=== PATIENT | male | born 1935 | race Asian ===

== ENCOUNTER 2020-09-16 03:04 | Inpatient (IN) | payer MEDICARE, MEDICAID ==
[~2020-09-16] VITALS: Ht 167.6 cm; Wt 52.2 kg
[2020-09-16] VITALS (7 sets, daily range): BP systolic 131–160; BP diastolic 67–84
--- NOTE | 2020-09-16 03:35 | Emergency Room Report ---
History of Present Illness General Chief Complaint: Generalized Weakness Source: Medical Record Present Illness HPI 85-year-old male with history of dementia and atrial fibrillation here with some slight generalized weakness. According the [facility] the patient has been complaining of generalized weakness over the past 24 hours. When paramedics arrived the patient had a heart rate of around 85 but would intermittently go up to around 120 bpm irregularly irregular. Patient was in no acute distress. Patient is on 2 L nasal cannula chronically. Patient has no complaints at this time. Denies headaches, vision changes, fevers, chills, chest pain, palpitati ons, shortness of breath, back pain, abdominal pain, nausea, vomiting, diarrhea, dysuria, palpitations, diaphoresis. There are some small abrasions on the patient's head and he does not know how these occurred but he denies any falls or syncopal events. Allergies: Coded Allergies: No Known Allergies (Unverified , 09/16/20) COVID-19 Screening Contact w/high risk pt: No Experienced COVID-19 symptoms?: No COVID-19 Testing performed SUPERVISOR GROWER: No Nursing Documentation-[facility] Past Medical History: No History, Except For Hx Hypertension: Yes Review of Systems All Other Systems: negative except mentioned in HPI Physical Exam Vital Signs Date Time Temp Pulse Resp B/P (MAP) Pulse Ox O2 Delivery O2 Flow Rate FiO2 09/16/20 03:04 97.3 93 20 160/82 (108) 96 Nasal Cannula 4.0 Sp02 EP Interpretation: reviewed, normal General Appearance: no apparent distress, alert, non-toxic Head: normocephalic, atraumatic Eyes: bilateral eye normal inspection, bilateral eye PERRL ENT: hearing grossly normal, normal pharynx, no angioedema, normal voice Neck: full range of motion, supple/symm/no masses Respiratory: chest non-tender, lungs clear, normal breath sounds, speaking full sentences Cardiovascular #1: no edema, other - Irregularly irregular rhythm around 85 bpm Cardiovascular #2: 2+ carotid (R), 2+ carotid (L), 2+ radial (R), 2+ radial (L), 2+ dorsalis pedis (R), 2+ dorsalis pedis (L) Gastrointestinal: normal bowel sounds, non tender, soft, non-distended, no guarding, no rebound Rectal: deferred Genitourinary: normal inspection, no CVA tenderness Musculoskeletal: back normal, normal range of motion, gait/station normal, non- tender Neurologic: alert, motor strength/tone normal, oriented x3, sensory intact, responsive, speech normal Psychiatric: judgement/insight normal, memory normal, mood/affect normal, no suicidal/homicidal ideation Lymphatic: no adenopathy Medical Decision Making Diagnostic Impression: Primary Impression: CHF (congestive heart failure) Additional Impressions: Elevated troponin Shortness of breath Weakness ER Course EKG: NSR, T wave inversions in V3. No ST abnormalities., intervals WNL. No ectopy. Rate 80 bpm Rhythm strip: patient monitored for arrhythmias - no malignant dysrhythmias, runs of PVCs, nor pauses noted Chest x-ray: Indication shortness of breath: Cardiomegaly with mild to moderate vascular congestion and moderate left pleural effusion Laboratory Tests Test 09/16/20 03:33 White Blood Count 5.7 K/UL (4.8-10.8) Red Blood Count 3.27 M/UL (4.70-6.10) L Hemoglobin 11.9 G/DL (14.2-18.0) L Hematocrit 36.2 % (42.0-52.0) L Mean Corpuscular Volume 111 FL (80-99) H Mean Corpuscular Hemoglobin 36.3 PG (27.0-31.0) H Mean Corpuscular Hemoglobin Concent 32.8 G/DL (32.0-36.0) Red Cell Distribution Width 13.1 % (11.6-14.8) Platelet Count 162 K/UL (150-450) Mean Platelet Volume 8.2 FL (6.5-10.1) Neutrophils (%) (Auto) % (45.0-75.0) Lymphocytes (%) (Auto) % (20.0-45.0) Monocytes (%) (Auto) % (1.0-10.0) Eosinophils (%) (Auto) % (0.0-3.0) Basophils (%) (Auto) % (0.0-2.0) Sodium Level 140 MMOL/L (136-145) Potassium Level 3.7 MMOL/L (3.5-5.1) Chloride Level 107 MMOL/L (98-107) Carbon Dioxide Level 25 MMOL/L (21-32) Anion Gap 8 mmol/L (5-15) Blood Urea Nitrogen 21 mg/dL (7-18) H Creatinine 1.0 MG/DL (0.55-1.30) Estimated Glomerular Filtration Rate > 60 mL/min (>60) Glucose Level 116 MG/DL (74-106) H Calcium Level 8.4 MG/DL (8.5-10.1) L Total Bilirubin 0.7 MG/DL (0.2-1.0) Aspartate Amino Transferase (AST) 19 U/L (15-37) Alanine Aminotransferase (ALT) 23 U/L (12-78) Alkaline Phosphatase 18 U/L (46-116) L Troponin I 0.070 ng/mL (0.000-0.056) Pro-B-Type Natriuretic Peptide 07361 pg/mL (0-125) H Total Protein 6.0 G/DL (6.4-8.2) L Albumin 2.7 G/DL (3.4-5.0) L Globulin 3.3 g/dL Albumin/Globulin Ratio 0.8 (1.0-2.7) L Microbiology Date/Time Source Procedure Growth Status 09/16/20 03:33 Nasopharynx SARS-CoV-2 RdRp Gene Assay - Final Complete 85-year-old male here with generalized weakness and some shortness of breath. Patient was reportedly mildly tachypneic at the [facility] on 2 L nasal cannula and his nasal cannula was increased to 4 L. Patient has had normal oxygen saturation and otherwise normal vital signs in the emergency department. Blood pressure and heart rate have been normal. He has been in atrial fibrillation with a normal heart rate throughout his stay in the emergency department. In no acute distress whatsoever. Chest x-ray showed pulmonary vascular congestion consistent with CHF. BNP was elevated at greater than 15,000. Patient was given 40 mg of Lasix IV. Troponin was 0.07. EKG showed T wave inversions in V3 but otherwise unremarkable. Patient received aspirin. CT head was unremarkable. CBC and CMP otherwise largely normal. The patient was admitted to telemetry. Last Vital Signs Date Time Temp Pulse Resp B/P (MAP) Pulse Ox O2 Delivery O2 Flow Rate FiO2 09/16/20 03:04 97.3 93 20 160/82 (108) 96 Nasal Cannula 4.0 Devonte Fang M.D. Sep 16, 2020 03:35
[2020-09-16 03:40] LABS: HEMATOCRIT 36.2 % (42.0-52.0); HEMOGLOBIN 11.9 G/DL (14.2-18.0); MEAN CORPUSCULAR VOLUME 111 FL (80-99); PLATELET COUNT 162 K/UL (150-450); RED BLOOD COUNT 3.27 M/UL (4.70-6.10); RED CELL DISTRIBUTION WIDTH 13.1 % (11.6-14.8); WHITE BLOOD COUNT 5.7 K/UL (4.8-10.8)
[2020-09-16 03:51] LABS: ANION GAP 8 mmol/L (5-15); BLOOD UREA NITROGEN 21 mg/dL (7-18); CALCIUM 8.4 MG/DL (8.5-10.1); CARBON DIOXIDE 25 MMOL/L (21-32); CHLORIDE 107 MMOL/L (98-107); POTASSIUM 3.7 MMOL/L (3.5-5.1); SODIUM 140 MMOL/L (136-145)
--- NOTE | 2020-09-16 03:54 | Diagnostic Imaging Report ---
EXAM: XR Chest, 1 View CLINICAL HISTORY: SOB TECHNIQUE: Frontal view of the chest. COMPARISON: No relevant prior studies available. FINDINGS: Lungs: Increased interstitial opacities. Pleural space: Moderate left pleural effusion. Heart: Moderate cardiomegaly. Bones/joints: No acute findings. IMPRESSION: Cardiomegaly with mild to moderate vascular congestion and moderate left pleural effusion.
[2020-09-16] MEDS ORDERED: Aspirin Baby 81mg ORAL ONE (04:00)
[2020-09-16 04:04] LABS: ALANINE AMINOTRANSFERASE 23 U/L (12-78); ALBUMIN 2.7 G/DL (3.4-5.0); ALBUMIN/GLOBULIN RATIO 0.8 (1.0-2.7); ALKALINE PHOSPHATASE 18 U/L (46-116); ASPARTATE AMINO TRANSFERASE 19 U/L (15-37); BILIRUBIN,TOTAL 0.7 MG/DL (0.2-1.0)
--- NOTE | 2020-09-16 04:14 | Diagnostic Imaging Report ---
EXAM: CT Head Without Intravenous Contrast CLINICAL HISTORY: AMS TECHNIQUE: Axial computed tomography images of the head/brain without intravenous contrast. CTDI is 53.40 mGy and DLP is 1018.80 mGy-cm. One or more of the following dose reduction techniques were used: automated exposure control, adjustment of the mA and/or kV according to patient size, use of iterative reconstruction technique. COMPARISON: No prior CTs are available for comparison. FINDINGS/ IMPRESSION: Few scattered foci of punctate peripheral hyperdensity for example along the high left parietal region, image 27 series 3, possibly reflective of microhemorrhage, which can be seen in the setting of hypertension and/or amyloidosis. Correlation with brain MRI is recommended. Also, there is a rounded hyperdense focus along the right cerebellum measuring 0.3 cm, image 10 series 3. This may reflect a small focal microhemorrhage as well. Correlation with brain MRI is recommended. There is no mass-effect, midline shift, or hydrocephalus. Prominence of the ventricles and sulci compatible with age-related involutional change. There is moderate to severe cerebral and cerebellar volume loss. Scattered punctate foci of lucency along the white matter and along the basal ganglia likely reflective of chronic microvascular ischemic change and/or lacunar infarcts. The possibility of acute superimposed ischemia cannot be excluded. Correlation with brain MRI is recommended to exclude the possibility of acute ischemia. Vascular calcifications are noted. There is no calvarial fracture. Artifact from dentures are noted. Mastoid air cells are clear. Visualized paranasal sinuses are clear. Patient is status post left cataract surgery.
[2020-09-16] MEDS ORDERED: LOSARTAN POTASS50 MG ORAL (05:00)
[2020-09-16] MEDS ORDERED: DONEPEZIL HCL5 M2 ORAL (05:00)
[2020-09-16] MEDS ORDERED: NAMENDA10 MG ORAL (05:00)
[2020-09-16] MEDS ORDERED: COLACE100 MG ORAL (05:00)
[2020-09-16] MEDS: Docusate 100mg cap ORAL SCH (10:39)
[2020-09-16] MEDS: Metoprolol Tartrate 12.5mg TAB ORAL SCH ×2 (10:40→21:09)
[2020-09-16] MEDS: Losartan 50mg tab ORAL SCH (10:40)
[2020-09-16] MEDS: Heparin 5000 units/ml inj SUBQ SCH ×2 (10:41→21:00)
[2020-09-16] MEDS: Donepezil 5mg Tab ORAL SCH (10:41)
--- NOTE | 2020-09-16 13:00 | History and Physical Report ---
DATE OF ADMISSION: 09/16/2020 CHIEF COMPLAINT: CHF exacerbation, atrial fibrillation with RVR. HISTORY OF PRESENT ILLNESS: The patient is an 85-year-old male. He has a history of hypertensive heart disease, dementia, cardiac arrhythmia, hypertension, gait instability presented from a long term facility with complaints of shortness of breath. On evaluation in the emergency room, the patient had x-ray evidence of congestive heart failure. He had an elevated natriuretic peptide assay as well as elevated troponin. He was given a dose of aspirin and intravenous Lasix, is now admitted for further evaluation and care. PAST MEDICAL HISTORY: As above. PAST SURGICAL HISTORY: None. CURRENT MEDICATIONS: Reconciled and reviewed. ALLERGIES: None. FAMILY HISTORY: None. SOCIAL HISTORY: There is no known history of tobacco, ethanol, or drugs. REVIEW OF SYSTEMS: Unobtainable as patient is confused. PHYSICAL EXAMINATION: VITAL SIGNS: Temperature 98.1, pulse 112, respirations 18, and blood pressure 130/85. GENERAL: The patient is well-developed, no apparent distress. Thin male. HEENT: Head is normocephalic and atraumatic. Sclerae anicteric. Oropharynx clear. NECK: Supple. HEART: LUNGS: Clear. ABDOMEN: Soft, nontender, nondistended. EXTREMITIES: Without clubbing or cyanosis. There is trace pitting edema noted. LABORATORY DATA: Sodium 140, potassium 3.7, BUN 21, creatinine is 1. Troponin 0.07. Natriuretic peptide level was 14,000. Chest x-ray showed CHF. ASSESSMENT: This is an 85-year-old male with history of hypertension and dementia admitted with complaints of shortness of breath secondary to CHF exacerbation. 1. CHF exacerbation. 2. Elevated troponin, rule out acute coronary syndrome. 3. Atrial fibrillation and atrial flutter. 4. Dementia. PLAN: 1. IV diuretics. 2. Monitor chest x-ray. 3. Supplemental oxygen as needed. 4. Antiplatelet treatment with aspirin. 5. Beta blockade for rate control. 6. Repeat troponin in the morning. 7. We will check a 2D echo. 8. Cardiology consultation is pending. Donnell Pedersen M.D. DR: Ander JOB#: [id number] CC:
[2020-09-17] VITALS: BP 138/54
[2020-09-17] MEDS: Acetaminophen 500mg (ES) tab ORAL PRN (03:07)
[2020-09-17 04:00] VITALS: BP 134/60
[2020-09-17 08:00] VITALS: BP 130/77
[2020-09-17] MEDS: Docusate 100mg cap ORAL SCH (08:20)
[2020-09-17] MEDS: Losartan 50mg tab ORAL SCH (08:20)
[2020-09-17] MEDS: Memantine 10mg tab ORAL SCH (08:20)
[2020-09-17] MEDS: Donepezil 5mg Tab ORAL SCH (08:20)
[2020-09-17] MEDS: Metoprolol Tartrate 12.5mg TAB ORAL SCH ×2 (08:20→21:10)
[2020-09-17] MEDS: Aspirin EC 81mg tab ORAL SCH (08:21)
[2020-09-17] MEDS: Heparin 5000 units/ml inj SUBQ SCH ×2 (08:26→21:11)
[2020-09-17 09:02] LABS: ALANINE AMINOTRANSFERASE 17 U/L (12-78); ALBUMIN 2.8 G/DL (3.4-5.0); ALBUMIN/GLOBULIN RATIO 0.8 (1.0-2.7); ALKALINE PHOSPHATASE 16 U/L (46-116); ANION GAP 9 mmol/L (5-15); ASPARTATE AMINO TRANSFERASE 18 U/L (15-37); BILIRUBIN,TOTAL 1.3 MG/DL (0.2-1.0); BLOOD UREA NITROGEN 21 mg/dL (7-18); CALCIUM 8.3 MG/DL (8.5-10.1); CARBON DIOXIDE 26 MMOL/L (21-32); CHLORIDE 105 MMOL/L (98-107); POTASSIUM 3.3 MMOL/L (3.5-5.1); SODIUM 140 MMOL/L (136-145)
[2020-09-17 09:03] LABS: BILIRUBIN,DIRECT 0.3 MG/DL (0.0-0.3)
--- NOTE | 2020-09-17 11:06 | General Progress Note ---
Subjective ROS Limited/Unobtainable: No Constitutional: Reports: malaise, weakness HEENT: Reports: no symptoms Respiratory: Reports: shortness of breath Gastrointestinal/Abdominal: Reports: no symptoms Genitourinary: Reports: no symptoms Neurologic/Psychiatric: Reports: no symptoms Endocrine: Reports: no symptoms Hematologic/Lymphatic: Reports: no symptoms Allergies: Coded Allergies: No Known Allergies (Unverified , 09/16/20) All Systems: reviewed and negative except above Subjective no events. less sob. on 1 L NC. no fever or chills. labs noted. low k Objective Last 24 Hour Vital Signs Date Time Temp Pulse Resp B/P (MAP) Pulse Ox O2 Delivery O2 Flow Rate FiO2 09/17/20 09:00 Nasal Cannula 1.0 09/17/20 08:20 60 130/77 09/17/20 08:20 130/77 09/17/20 08:00 97.5 60 20 130/77 (94) 97 09/17/20 08:00 115 09/17/20 04:00 67 09/17/20 04:00 97.1 70 20 134/60 (84) 95 09/17/20 00:00 70 09/17/20 00:00 97.9 65 18 138/54 (82) 95 09/16/20 21:09 98 139/70 09/16/20 21:00 Nasal Cannula 4.0 09/16/20 20:01 98 Nasal Cannula 2.0 28 09/16/20 20:00 96.6 96 18 139/70 (93) 96 09/16/20 20:00 86 09/16/20 16:00 95 09/16/20 15:59 98.1 81 20 132/71 (91) 100 09/16/20 12:00 112 09/16/20 11:53 96.1 132 19 148/72 (97) 98 Intake and Output 09/16/20 09/17/20 19:00 07:00 # Bowel Movements 1 Laboratory Tests 09/17/20 06:40: Sodium Level 140, Potassium Level 3.3L, Chloride Level 105, Carbon Dioxide Level 26, Anion Gap 9, Blood Urea Nitrogen 21H, Creatinine 1.0, Estimat Glomerular Filtration Rate > 60, Glucose Level 100, Calcium Level 8.3L, Total Bilirubin 1.3H, Direct Bilirubin 0.3, Aspartate Amino Transf (AST/SGOT) 18, Alanine Aminotransferase (ALT/SGPT) 17, Alkaline Phosphatase 16L, Total Protein 6.4, Albumin 2.8L, Globulin 3.6, Albumin/Globulin Ratio 0.8L Height (Feet): 5 Height (Inches): 6.00 Weight (Pounds): 145 General Appearance: WD/WN, alert Neck: supple Cardiovascular: normal rate Respiratory/Chest: lungs clear, normal breath sounds, no respiratory distress, no accessory muscle use Abdomen: normal bowel sounds, non tender, soft, no organomegaly Edema: no edema noted Arm (L), no edema noted Arm (R), no edema noted Leg (L), no edema noted Leg (R) 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 normal, no motor/sensory deficits, alert, oriented x 3 Assessment/Plan Problem List: (1) NSTEMI (non-ST elevated myocardial infarction) ICD Codes: I21.4 - Non-ST elevation (NSTEMI) myocardial infarction SNOMED: 61013236 (2) Shortness of breath ICD Codes: R06.02 - Shortness of breath SNOMED: 485731049 (3) Elevated troponin ICD Codes: R77.8 - Other specified abnormalities of plasma proteins SNOMED: 939367729, 570274057, 930191644 (4) CHF (congestive heart failure) ICD Codes: I50.9 - Heart failure, unspecified SNOMED: 26957071 (5) Weakness ICD Codes: R53.1 - Weakness SNOMED: 47778371, 723032288, 920525701 Status: stable Assessment/Plan: iv lasix wean o2 antiplt rx follow up echo repeat cxr monitor Donnell Cast MD Sep 17, 2020 11:05
[2020-09-17 12:00] VITALS: BP 149/61
--- NOTE | 2020-09-17 13:55 | Cardiology Progress Note ---
Subjective DATE OF SERVICE: Sep 17, 2020 Less SOB. Monitor: Afib to NSR, and now back to AFib/flutter. Labs noted. Remains confused but directable. Objective Last 24 Hour Vital Signs Date Time Temp Pulse Resp B/P (MAP) Pulse Ox O2 Delivery O2 Flow Rate FiO2 09/17/20 09:00 Nasal Cannula 1.0 09/17/20 08:20 60 130/77 09/17/20 08:20 130/77 09/17/20 08:00 97.5 60 20 130/77 (94) 97 09/17/20 08:00 115 09/17/20 04:00 67 09/17/20 04:00 97.1 70 20 134/60 (84) 95 09/17/20 00:00 70 09/17/20 00:00 97.9 65 18 138/54 (82) 95 09/16/20 21:09 98 139/70 09/16/20 21:00 Nasal Cannula 4.0 09/16/20 20:01 98 Nasal Cannula 2.0 28 09/16/20 20:00 96.6 96 18 139/70 (93) 96 09/16/20 20:00 86 09/16/20 16:00 95 09/16/20 15:59 98.1 81 20 132/71 (91) 100 ROS: still not obtainable due to dementia HEENT: normal ENT inspection RHYTHM: Afib LUNGS: rales bilaterally - few CARDIAC: normal rate, normal S1 and S2, irregularly irregular, systolic murmur - 1/6 systolic at apex ABDOMEN: normal bowel sounds, non tender, soft, no organomegaly EXTREMITIES: normal range of motion, trace edema Laboratory Tests Test 09/17/20 06:40 Sodium Level 140 MMOL/L (136-145) Potassium Level 3.3 MMOL/L (3.5-5.1) L Chloride Level 105 MMOL/L (98-107) Carbon Dioxide Level 26 MMOL/L (21-32) Anion Gap 9 mmol/L (5-15) Blood Urea Nitrogen 21 mg/dL (7-18) H Creatinine 1.0 MG/DL (0.55-1.30) Estimat Glomerular Filtration Rate > 60 mL/min (>60) Glucose Level 100 MG/DL (74-106) Calcium Level 8.3 MG/DL (8.5-10.1) L Total Bilirubin 1.3 MG/DL (0.2-1.0) H Direct Bilirubin 0.3 MG/DL (0.0-0.3) Aspartate Amino Transf (AST/SGOT) 18 U/L (15-37) Alanine Aminotransferase (ALT/SGPT) 17 U/L (12-78) Alkaline Phosphatase 16 U/L (46-116) L Total Protein 6.4 G/DL (6.4-8.2) Albumin 2.8 G/DL (3.4-5.0) L Globulin 3.6 g/dL Albumin/Globulin Ratio 0.8 (1.0-2.7) L Microbiology Date/Time Source Procedure Growth Status 09/16/20 06:00 Rectal Mucosa Received 09/16/20 06:00 Nasal Nares MRSA Culture - Final NO METHICILLIN RESISTANT STAPH AUREUS... Complete 09/16/20 03:33 Nasopharynx SARS-CoV-2 RdRp Gene Assay - Final Complete CHEST XRAY: (09/17) pulmonary venous congestion Assessment/Plan Assessment/Plan Paroxysmal Atrial Fib/flutter Acute/chr systolic CHF Acute myocardial ischemia/possible NSTEMI Hypokalemia Cerebrovascular disease with multi-infarct dementia Abnormal Head CT with microhemorrhages Add amiodarone to maintain sinus rhythm High risk for bleeding complications; no plan for full anticoagulation Titrate anti-failure and antiHTN regimens. Replace potassium; check magnesium. Maintain anti-platelet drugs Diuresis Rey Katz MD Sep 17, 2020 13:55
[2020-09-17] MEDS: Amiodarone 200mg tab ORAL SCH ×2 (14:27→21:10)
--- NOTE | 2020-09-17 15:13 | Cardiology Report ---
APPROVED REPORT EXAM: Two-dimensional and M-mode echocardiogram with Doppler and color Doppler. INDICATION Abnormal cardiac function M-Mode DIMENSIONS IVSd0.8 (0.7-1.1cm)Left Atrium (MM)3.3 (1.6-4.0cm) LVDd4.8 (3.5-5.6cm)Aortic Root3.5 (2.0-3.7cm) PWd0.9 (0.7-1.1cm)Aortic Cusp Exc.1.6 (1.5-2.0cm) IVSs1.1 cmEPSS1.3 (>1.0cm) LVDs3.6 (2.5-4.0cm) PWs1.1 cm <Conclusion> Global left ventricular hypokinesis. Normal left ventricular chamber size. Left ventricular ejection fraction estimated to be 20-25 %. No evidence of left ventricular hypertrophy. Large pleural effusion. Small pericardial effusion. Mild left atrial enlargement by 2-D. Right cardiac chamber sizes are within normal limits. Mild focal aortic valve sclerosis with adequate cusp excursion. Mildly thickened mitral valve leaflets with normal excursion. Mild mitral annulus and aortic root calcification. Pulmonic valve not well visualized. Normal tricuspid valve structure. IVC dilated at 2.3 cm without physiological collapse, suggestive of increased RA pressure. A color flow and spectral Doppler study was performed and revealed: Moderate aortic regurgitation. Moderate to severe mitral regurgitation. Left ventricular diastolic function could not be determined due to arrhythmia. Mild tricuspid regurgitation. Tricuspid systolic velocities suggests peak right ventricular systolic pressure of 48 mmHg, consistent with moderate pulmonary hypertension. Severe pulmonic regurgitation present. Respiratory variation across Mitral valve is < 25%. Respiratory variation across Tricuspid valve is < 50%.
--- NOTE | 2020-09-17 15:29 | Consultation ---
DATE OF CONSULTATION: 09/16/2020 CARDIOLOGY CONSULTATION CONSULTING PHYSICIAN: Rey Katz MD REFERRING PHYSICIAN: Donnell Pedersen MD REASON FOR CONSULTATION: Congestive heart failure, elevated troponin level, rapid atrial fibrillation. HISTORY OF PRESENT ILLNESS: This is an 85-year-old male and has a significant prior cardiac history including cardiac arrhythmias and cerebrovascular disease. He was short of breath and sent to the hospital from his [place] [facility] facility. On arrival to the emergency room, he was noted to have clinical signs of congestive heart failure as well as an elevated natriuretic peptide assay. His EKG revealed a rapid atrial fibrillation/flutter with nonspecific ST changes. The patient is being admitted to the hospital for further management and cardiovascular consultation has been requested. PAST MEDICAL HISTORY: Hypertension, cerebrovascular disease, dementia, paroxysmal atrial arrhythmias, osteoarthritis, degenerative disk disease. ALLERGIES: None. MEDICATIONS: Reviewed and reconciled. FAMILY HISTORY: Not known. SOCIAL HISTORY: Negative for smoking, alcohol, or substance abuse. REVIEW OF SYSTEMS: Not reliably obtained from patient, but 20 minutes time spent reviewing old records and [facility] chart. PHYSICAL EXAMINATION: VITAL SIGNS: Afebrile, blood pressure 130/85, heart rate 112, respirations 18. GENERAL: Thin, frail, in no acute distress. HEENT: Temporal wasting. Pale conjunctivae. Moist mucous membranes. NECK: Supple. Jugular venous pressure elevated. LUNGS: Bilateral breath sounds and few rales. CARDIAC: Irregularly irregular rhythm. Rapid rate. Normal S1, S2. A 1/6 systolic murmur at apex. ABDOMEN: Soft, nontender. EXTREMITIES: Trace edema. LABORATORY AND DIAGNOSTIC DATA: Natriuretic peptide over 14,000. Chest x-ray reveals bilateral pulmonary venous congestion. Troponin is 0.070. Sodium 140, potassium 3.7, BUN 21, creatinine 1. Lactic acid normal. IMPRESSION: 1. Acute on chronic systolic congestive heart failure. 2. Acute myocardial ischemia. 3. Possible [id number] myocardial infarction. 4. Paroxysmal atrial fibrillation/flutter with rapid ventricular rate. 5. Cerebrovascular disease with dementia. PLAN: 1. Cardiac monitoring. 2. Intravenous diuretic therapy. 3. Titrate anti-failure and antiarrhythmic regimen with beta blockers. 4. Antiplatelet therapy with aspirin. 5. Echocardiogram. 6. Reassess for cardioembolic prophylaxis with full anticoagulation. Based on his age and comorbidities, he likely would have an increased risk to benefit ratio for this type of treatment. Rey Katz M.D. DR: STACI JOB#: [id number] CC: SOUMYA
--- NOTE | 2020-09-17 15:53 | Cardiology Report ---
APPROVED REPORT EKG Measurement Heart [id number] <Conclusion> Atrial flutter with variable AV block Left anterior fascicular block Abnormal QRS-T angle, consider primary T wave abnormality Abnormal ECG
--- NOTE | 2020-09-17 15:58 | Cardiology Report ---
APPROVED REPORT EKG Measurement Heart [id number] <Conclusion> Sinus rhythm with premature atrial complexes Nonspecific ST and T wave abnormality Abnormal ECG
[2020-09-17 16:00] VITALS: BP 144/61
--- NOTE | 2020-09-17 16:57 | Consultation ---
History of Present Illness General Date patient seen: Sep 17, 2020 Reason for Hospitalization: Generalized Weakness Present Illness HPI 85 year old male with multiple medical comorbidities currently admitted to [facility] for medical care and management when he was noted to have elevated t bili, malnutrition, and sacral dermal breakdown. surgery called to evaluate and assist with care. patient seen, chart reviewed, patient examined. he is awake, alert, but not does not participate in exam. no n/v/f/c. Allergies: Coded Allergies: No Known Allergies (Unverified , 09/16/20) COVID-19 Screening Contact w/high risk pt: No Experienced COVID-19 symptoms?: Yes Coronavirus symptoms experienc: Shortness of Breath Medication History Scheduled Docusate Sodium* (Colace*), 100 MG ORAL DAILY, (Reported) Donepezil Hcl* (Donepezil Hcl*), 5 MG ORAL DAILY, (Reported) Losartan Potassium* (Losartan Potassium*), 100 MG ORAL DAILY, (Reported) Memantine Hcl* (Namenda*), 10 MG ORAL DAILY, (Reported) Patient History Limited by: age, medical condition History Provided By: Patient, Medical Record, PMD Healthcare decision maker Resuscitation status Advanced Directive on File Past Medical/Surgical History Past Medical/Surgical History: (1) Abnormal LFTs (2) Malnutrition (3) Incontinence associated dermatitis (4) Shortness of breath (5) CHF (congestive heart failure) (6) Weakness (7) Elevated troponin (8) NSTEMI (non-ST elevated myocardial infarction) Review of Systems Review of Symptoms General ROS: no weight loss or fever Psychological ROS: no depression or mood changes, no memory loss Ophthalmic ROS: no visual changes or eye irritation ENT ROS: no nasal congestion, hearing loss, dizziness Allergy and Immunology ROS: no allergic symptoms or urticaria Hematological and Lymphatic ROS: no swollen glands, unusual bleeding or bruising Endocrine ROS: no polyuria, polydipsia, weight changes, temperature intolerance Respiratory ROS: no cough, shortness of breath, or wheezing Cardiovascular ROS: no chest pain or dyspnea on exertion Gastrointestinal ROS: denies abdominal pain, bright red blood in stool. Musculoskeletal ROS: no myalgias or arthralgias Neurological ROS: no TIA or stroke symptoms Dermatological ROS: no new or changing skin lesions, rashes or pruritis Physical Exam Physical Exam General appearance: alert, cooperative, no distress, appears stated age Head: Normocephalic, without obvious abnormality, atraumatic Eyes: conjunctivae/corneas clear. PERRL, EOM's intact. Fundi benign Throat: Lips, mucosa, and tongue normal. Teeth and gums normal Neck: supple, symmetrical, trachea midline, no adenopathy, thyroid: not enlarged, symmetric, no tenderness/mass/nodules, no carotid bruit and no JVD Lungs: clear to auscultation bilaterally Heart: regular rate and rhythm, S1, S2 normal, no murmur, click, rub or gallop Abdomen: soft, non-tender. Bowel sounds normal. No masses, no organomegaly Extremities: extremities normal, atraumatic, no cyanosis or edema Pulses: 2+ and symmetric Skin: Skin color, texture, turgor normal. No rashes or lesions Neurologic: Grossly normal Last 24 Hour Vital Signs Date Time Temp Pulse Resp B/P (MAP) Pulse Ox O2 Delivery O2 Flow Rate FiO2 09/17/20 16:00 99 09/17/20 16:00 98.7 70 17 144/61 (88) 96 09/17/20 12:00 108 09/17/20 12:00 98.1 60 18 149/61 (90) 98 09/17/20 09:00 Nasal Cannula 1.0 09/17/20 08:20 60 130/77 09/17/20 08:20 130/77 09/17/20 08:00 97.5 60 20 130/77 (94) 97 09/17/20 08:00 115 09/17/20 04:00 67 09/17/20 04:00 97.1 70 20 134/60 (84) 95 09/17/20 00:00 70 09/17/20 00:00 97.9 65 18 138/54 (82) 95 09/16/20 21:09 98 139/70 09/16/20 21:00 Nasal Cannula 4.0 09/16/20 20:01 98 Nasal Cannula 2.0 28 09/16/20 20:00 96.6 96 18 139/70 (93) 96 09/16/20 20:00 86 Intake and Output 09/16/20 09/17/20 19:00 07:00 # Bowel Movements 1 Laboratory Tests Test 09/17/20 06:40 09/17/20 13:55 Sodium Level 140 MMOL/L (136-145) Potassium Level 3.3 MMOL/L (3.5-5.1) L Chloride Level 105 MMOL/L (98-107) Carbon Dioxide Level 26 MMOL/L (21-32) Anion Gap 9 mmol/L (5-15) Blood Urea Nitrogen 21 mg/dL (7-18) H Creatinine 1.0 MG/DL (0.55-1.30) Estimat Glomerular Filtration Rate > 60 mL/min (>60) Glucose Level 100 MG/DL (74-106) Calcium Level 8.3 MG/DL (8.5-10.1) L Total Bilirubin 1.3 MG/DL (0.2-1.0) H Direct Bilirubin 0.3 MG/DL (0.0-0.3) Aspartate Amino Transf (AST/SGOT) 18 U/L (15-37) Alanine Aminotransferase (ALT/SGPT) 17 U/L (12-78) Alkaline Phosphatase 16 U/L (46-116) L Total Protein 6.4 G/DL (6.4-8.2) Albumin 2.8 G/DL (3.4-5.0) L Globulin 3.6 g/dL Albumin/Globulin Ratio 0.8 (1.0-2.7) L Troponin I 0.059 ng/mL (0.000-0.056) Height (Feet): 5 Height (Inches): 6.00 Weight (Pounds): 145 Medications Current Medications Medications (Trade) Dose Ordered Sig/Lucille Route PRN Reason Start Time Stop Time Status Last Admin Dose Admin Acetaminophen (Tylenol) 500 mg Q4H PRN ORAL Mild Pain (Pain Scale 1-3) 09/16/20 09:15 10/16/20 09:14 09/17/20 03:07 Amiodarone HCl (Cordarone) 200 mg EVERY 12 HOURS ORAL 09/17/20 14:00 12/16/20 13:59 09/17/20 14:27 Aspirin (Ecotrin) 81 mg DAILY ORAL 09/17/20 09:00 11/01/20 08:59 09/17/20 08:21 Docusate Sodium (Colace) 100 mg DAILY ORAL 09/16/20 10:00 10/16/20 09:59 09/17/20 08:20 Donepezil HCl (Aricept) 5 mg DAILY ORAL 09/16/20 10:00 10/16/20 09:59 09/17/20 08:20 Furosemide (Lasix) 40 mg DAILY IV 09/16/20 10:00 10/16/20 09:59 09/17/20 08:21 Heparin Sodium (Porcine) (Heparin 5000 units/ml) 5,000 units EVERY 12 HOURS SUBQ 09/16/20 10:00 10/31/20 09:59 09/16/20 10:41 Losartan Potassium (Cozaar) 100 mg DAILY ORAL 09/16/20 10:00 10/16/20 09:59 09/17/20 08:20 Memantine (Namenda) 10 mg DAILY ORAL 09/17/20 09:00 10/17/20 08:59 09/17/20 08:20 Metoprolol Tartrate (Lopressor) 12.5 mg Q12HR ORAL 09/16/20 10:00 12/15/20 09:59 09/17/20 08:20 Temazepam (Restoril) 15 mg HSPRN PRN ORAL Insomnia 09/17/20 08:15 09/24/20 08:14 Assessment/Plan Problem List: (1) Shortness of breath ICD Codes: R06.02 - Shortness of breath SNOMED: 356801581 (2) CHF (congestive heart failure) ICD Codes: I50.9 - Heart failure, unspecified SNOMED: 29066839 (3) Weakness ICD Codes: R53.1 - Weakness SNOMED: 67251941, 989286160, 042287926 (4) Elevated troponin ICD Codes: R77.8 - Other specified abnormalities of plasma proteins SNOMED: 846225604, 876981573, 325551379 (5) NSTEMI (non-ST elevated myocardial infarction) ICD Codes: I21.4 - Non-ST elevation (NSTEMI) myocardial infarction SNOMED: 27523854 (6) Malnutrition Assessment & Plan: DAILY ESTIMATED NEEDS: Needs based on underweight, pulmonary 51kg 30-35 kcals/kg 6313-3880 total kcals 1.25-1.5 g protein/kg 64-77 g total protein Fluid per MD On lasix NUTRITION DIAGNOSIS: Increased kcal and pro needs r/t underweight status as evidenced by pt w/ BMI underweight per guidelines, 79% of [place] Body Weight, w/ sacral redness. CURRENT DIET: Cardiac ms ground PO DIET RECOMMENDATIONS: Low Na diet/ texture per AP PROCESSOR ADDITIONAL RECOMMENDATIONS: 1) Add Ensure Enlive BID w/ meals (350 kcal, 20g pro each) 2) Add snacks as tolerated in b/w meals 3) Replete lytes as needed (Low K 3.3) 4) maintain daily calibrated bed scale wts BMI now underweight 5) Consider Kcal count to evaluate po intake ICD Codes: E46 - Unspecified protein-calorie malnutrition SNOMED: 99755473 (7) Abnormal LFTs Assessment & Plan: elevated t bili ast/alt okay US ordered trend labs cont fluids will follow with resc. ICD Codes: R94.5 - Abnormal results of liver function studies SNOMED: 153866066 (8) Incontinence associated dermatitis Assessment & Plan: 85M with incontinence associated dermatitis noted in sacral buttock. loose bm soilage. patient not able to always states when. wash daily with NS. apply skin protectant turn q2h off load pressure monitor for incontinence and care appropriately thank you ICD Codes: L25.8 - Unspecified contact dermatitis due to other agents; R32 - Unspecified urinary incontinence SNOMED: 270748168 Mo Siegel Sep 17, 2020 16:57
[2020-09-17] MEDS ORDERED: BETAMETHASONE D15 GM TP (18:16)
[2020-09-17] MEDS ORDERED: CALCIPOTRIENE60 GM TP (18:16)
[2020-09-17] MEDS ORDERED: DULCOLAX10 MG RC (18:16)
[2020-09-17] MEDS ORDERED: MULTIVITAMINS1 EAC2 ORAL (18:34)
[2020-09-17] MEDS ORDERED: MEDROL DOSEPAK4 MG ORAL (18:34)
[2020-09-17] MEDS ORDERED: ACETAMINOPHEN325 M1 ORAL (18:34)
[2020-09-17] MEDS ORDERED: MILK OF MA400 MG/51 ORAL (18:34)
[2020-09-17] MEDS ORDERED: TACROLIMUS30 G1 TP (18:34)
[2020-09-17] MEDS ORDERED: ELIDEL TP (18:34)
[2020-09-17 20:00] VITALS: BP 139/66
[2020-09-18] VITALS: BP 124/64
[2020-09-18 04:00] VITALS: BP 130/70
[2020-09-18 07:29] LABS: ALANINE AMINOTRANSFERASE 13 U/L (12-78); ALBUMIN 2.4 G/DL (3.4-5.0); ALBUMIN/GLOBULIN RATIO 0.7 (1.0-2.7); ALKALINE PHOSPHATASE 15 U/L (46-116); ANION GAP 6 mmol/L (5-15); ASPARTATE AMINO TRANSFERASE 17 U/L (15-37); BILIRUBIN,TOTAL 0.9 MG/DL (0.2-1.0); BLOOD UREA NITROGEN 24 mg/dL (7-18); CALCIUM 8.2 MG/DL (8.5-10.1); CARBON DIOXIDE 30 MMOL/L (21-32); CHLORIDE 105 MMOL/L (98-107); POTASSIUM 3.4 MMOL/L (3.5-5.1); SODIUM 141 MMOL/L (136-145)
[2020-09-18 08:00] VITALS: BP 140/60
--- NOTE | 2020-09-18 08:32 | General Progress Note ---
Subjective ROS Limited/Unobtainable: No Constitutional: Reports: malaise, weakness HEENT: Reports: no symptoms Cardiovascular: Reports: no symptoms Respiratory: Reports: cough, shortness of breath Gastrointestinal/Abdominal: Reports: no symptoms Genitourinary: Reports: no symptoms Neurologic/Psychiatric: Reports: anxiety, pre-existing deficit Endocrine: Reports: no symptoms Hematologic/Lymphatic: Reports: anemia Allergies: Coded Allergies: No Known Allergies (Unverified , 09/16/20) All Systems: reviewed and negative except above Subjective no events. off o2. confused. no fevers or chills. no sob. tolerating po. echo noted ef 25% Objective Last 24 Hour Vital Signs Date Time Temp Pulse Resp B/P (MAP) Pulse Ox O2 Delivery O2 Flow Rate FiO2 09/18/20 04:00 97.5 69 18 130/70 (90) 100 09/18/20 04:00 94 09/18/20 00:00 86 09/18/20 00:00 97.5 82 20 124/64 (84) 100 09/17/20 21:10 119 139/66 09/17/20 21:00 Nasal Cannula 2.0 09/17/20 20:11 98 Nasal Cannula 2.0 28 09/17/20 20:00 96.1 111 20 139/66 (90) 98 09/17/20 20:00 119 09/17/20 16:00 99 09/17/20 16:00 98.7 70 17 144/61 (88) 96 09/17/20 12:00 108 09/17/20 12:00 98.1 60 18 149/61 (90) 98 09/17/20 09:00 Nasal Cannula 1.0 Laboratory Tests 09/17/20 13:55: Troponin I 0.059H 09/18/20 05:44: Sodium Level 141, Potassium Level 3.4L, Chloride Level 105, Carbon Dioxide Level 30, Anion Gap 6, Blood Urea Nitrogen 24H, Creatinine 1.0, Estimat Glomerular Filtration Rate > 60, Glucose Level 85, Calcium Level 8.2L, Magnesium Level 2.0, Total Bilirubin 0.9, Aspartate Amino Transf (AST/SGOT) 17, Alanine Aminotransferase (ALT/SGPT) 13, Alkaline Phosphatase 15L, Pro-B-Type Natriuretic Peptide 57232W, Total Protein 5.7L, Albumin 2.4L, Globulin 3.3, Albumin/Globulin Ratio 0.7L Height (Feet): 5 Height (Inches): 6.00 Weight (Pounds): 145 Objective General Appearance: WD/WN, alert Neck: supple Cardiovascular: normal rate Respiratory/Chest: lungs clear, normal breath sounds, no respiratory distress, no accessory muscle use Abdomen: normal bowel sounds, non tender, soft, no organomegaly Edema: no edema noted Arm (L), no edema noted Arm (R), no edema noted Leg (L), no edema noted Leg (R) Neurologic: graphic designer II-XII grossly normal, no motor/sensory deficits, alert, oriented x 3 Assessment/Plan Problem List: (1) NSTEMI (non-ST elevated myocardial infarction) ICD Codes: I21.4 - Non-ST elevation (NSTEMI) myocardial infarction SNOMED: 93176775 (2) Shortness of breath ICD Codes: R06.02 - Shortness of breath SNOMED: 503320183 (3) Elevated troponin ICD Codes: R77.8 - Other specified abnormalities of plasma proteins SNOMED: 820449337, 860476591, 067119125 (4) CHF (congestive heart failure) ICD Codes: I50.9 - Heart failure, unspecified SNOMED: 61063107 (5) Weakness ICD Codes: R53.1 - Weakness SNOMED: 16844986, 415517044, 075263251 Status: stable Assessment/Plan: iv lasix wean o2 antiplt rx echo results reviewed cardiology noted repeat cxr ordered monitor Donnell Cast MD Sep 18, 2020 08:32
[2020-09-18] MEDS: Donepezil 5mg Tab ORAL SCH (08:34)
[2020-09-18] MEDS: Metoprolol Tartrate 12.5mg TAB ORAL SCH ×2 (08:34→20:28)
[2020-09-18] MEDS: Losartan 50mg tab ORAL SCH (08:34)
[2020-09-18] MEDS: Docusate 100mg cap ORAL SCH (08:34)
[2020-09-18] MEDS: Memantine 10mg tab ORAL SCH (08:34)
[2020-09-18] MEDS: Amiodarone 200mg tab ORAL SCH ×2 (08:34→20:28)
[2020-09-18] MEDS: Aspirin EC 81mg tab ORAL SCH (08:34)
[2020-09-18] MEDS: Heparin 5000 units/ml inj SUBQ SCH ×2 (08:35→20:29)
--- NOTE | 2020-09-18 10:58 | Diagnostic Imaging Report ---
ABDOMINAL ULTRASOUND - COMPLETE INDICATION: elevated liver enzymes TECHNIQUE: Multiplanar ultrasound examination of the abdomen with greyscale and doppler imaging. COMPARISON: None FINDINGS: Liver: The liver is normal in size and echogenicity. No focal abnormalities are noted. Gallbladder: The gallbladder is normal. No stones are visualized. The wall is not thickened. Is no sonographic Galvan sign. Common bile duct: Normal in size. Pancreas: The visualized portion of pancreas is normal in echogenicity. There are no masses. Kidneys: The kidneys are normal in size and demonstrate cortical thinning. There is fullness of the right collecting system. There is a 2.2 cm parapelvic right renal cyst. There is a subcentimeter right midpole cyst. Prostate is within normal limits in volume. There is mild post void residual volume of 65 mL. Spleen: The spleen is normal in size and echogenicity. Additional findings: Images aorta is unremarkable. There is a large right pleural effusion. There is a large left pleural effusion. IMPRESSION: 1. Mildly atrophic kidneys. 2. Fullness of the right collecting system without sonographic evidence of obstructive process. 3. Mild post void residual volume of 65 mL. 4. Large bilateral pleural effusions.
[2020-09-18 12:00] VITALS: BP 117/55
--- NOTE | 2020-09-18 13:16 | Diagnostic Imaging Report ---
Indication: Reason For Exam: SOB Technique: Single AP view of the chest. Comparison: Chest radiograph dated 09/16/2020 Findings: The cardiomediastinal silhouette is unchanged in appearance. No ulceration a moderate layering left pleural effusion with associated retrocardiac consolidation. Unchanged trace right pleural effusion. Decreased conspicuity of right infrahilar airspace opacity. Stable interstitial edema. No pneumothorax. Biapical scarring is again seen. IMPRESSION: 1. Improved aeration of the right lung base. 2. Persistent moderate left and trace right pleural effusions.
[2020-09-18 16:00] VITALS: BP 134/65
--- NOTE | 2020-09-18 18:40 | Surgery Progress Note ---
Surgery Progress Note Subjective Additional Comments afebrile, HD stable confused US noted labs noted electrolytes being replaced no n/v Objective Last 24 Hour Vital Signs Date Time Temp Pulse Resp B/P (MAP) Pulse Ox O2 Delivery O2 Flow Rate FiO2 09/18/20 16:00 87 09/18/20 16:00 97.3 100 20 134/65 (88) 99 09/18/20 12:00 77 09/18/20 12:00 97.1 88 20 117/55 (75) 96 09/18/20 09:00 Nasal Cannula 2.0 09/18/20 08:34 111 140/60 09/18/20 08:34 140/60 09/18/20 08:00 82 09/18/20 08:00 96.6 111 20 140/60 (86) 100 09/18/20 04:00 97.5 69 18 130/70 (90) 100 09/18/20 04:00 94 09/18/20 00:00 86 09/18/20 00:00 97.5 82 20 124/64 (84) 100 09/17/20 21:10 119 139/66 09/17/20 21:00 Nasal Cannula 2.0 09/17/20 20:11 98 Nasal Cannula 2.0 28 09/17/20 20:00 96.1 111 20 139/66 (90) 98 09/17/20 20:00 119 Cardiovascular: RSR Respiratory: clear, decreased breath sounds Abdomen: soft, non-tender, present bowel sounds, non-distended Extremities: no edema, no tenderness, no cyanosis Laboratory Tests Test 09/18/20 05:44 Sodium Level 141 MMOL/L (136-145) Potassium Level 3.4 MMOL/L (3.5-5.1) L Chloride Level 105 MMOL/L (98-107) Carbon Dioxide Level 30 MMOL/L (21-32) Anion Gap 6 mmol/L (5-15) Blood Urea Nitrogen 24 mg/dL (7-18) H Creatinine 1.0 MG/DL (0.55-1.30) Estimat Glomerular Filtration Rate > 60 mL/min (>60) Glucose Level 85 MG/DL (74-106) Calcium Level 8.2 MG/DL (8.5-10.1) L Magnesium Level 2.0 MG/DL (1.8-2.4) Total Bilirubin 0.9 MG/DL (0.2-1.0) Aspartate Amino Transf (AST/SGOT) 17 U/L (15-37) Alanine Aminotransferase (ALT/SGPT) 13 U/L (12-78) Alkaline Phosphatase 15 U/L (46-116) L Pro-B-Type Natriuretic Peptide 86134 pg/mL (0-125) H Total Protein 5.7 G/DL (6.4-8.2) L Albumin 2.4 G/DL (3.4-5.0) L Globulin 3.3 g/dL Albumin/Globulin Ratio 0.7 (1.0-2.7) L Plan Problems: (1) Shortness of breath (2) CHF (congestive heart failure) (3) Weakness (4) Elevated troponin (5) NSTEMI (non-ST elevated myocardial infarction) (6) Malnutrition Assessment & Plan: DAILY ESTIMATED NEEDS: Needs based on underweight, pulmonary 51kg 30-35 kcals/kg 4923-5327 total kcals 1.25-1.5 g protein/kg 64-77 g total protein Fluid per MD On lasix NUTRITION DIAGNOSIS: Increased kcal and pro needs r/t underweight status as evidenced by pt w/ BMI underweight per guidelines, 79% of [place] Body Weight, w/ sacral redness. CURRENT DIET: Cardiac ms ground PO DIET RECOMMENDATIONS: Low Na diet/ texture per THEATER TECHNICIAN ADDITIONAL RECOMMENDATIONS: 1) Add Ensure Enlive BID w/ meals (350 kcal, 20g pro each) 2) Add snacks as tolerated in b/w meals 3) Replete lytes as needed (Low K 3.3) 4) maintain daily calibrated bed scale wts BMI now underweight 5) Consider Kcal count to evaluate po intake (7) Abnormal LFTs Assessment & Plan: elevated t bili ast/alt okay US ordered trend labs cont fluids will follow with resc. Liver: The liver is normal in size and echogenicity. No focal abnormalities are noted. Gallbladder: The gallbladder is normal. No stones are visualized. The wall is not thickened. Is no sonographic Galvan sign. Common bile duct: Normal in size. Pancreas: The visualized portion of pancreas is normal in echogenicity. There are no masses. Kidneys: The kidneys are normal in size and demonstrate cortical thinning. There is fullness of the right collecting system. There is a 2.2 cm parapelvic right renal cyst. There is a subcentimeter right midpole cyst. Prostate is within normal limits in volume. There is mild post void residual volume of 65 mL. Spleen: The spleen is normal in size and echogenicity. Additional findings: Images aorta is unremarkable. There is a large right pleural effusion. There is a large left pleural effusion. IMPRESSION: 1. Mildly atrophic kidneys. 2. Fullness of the right collecting system without sonographic evidence of obstructive process. 3. Mild post void residual volume of 65 mL. 4. Large bilateral pleural effusions. 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 loose bm soilage. patient not able to always states when. wash daily with NS. apply skin protectant turn q2h off load pressure monitor for incontinence and care appropriately thank you Mo Siegel Sep 18, 2020 18:40
[2020-09-18 20:00] VITALS: BP 116/50
[2020-09-19] VITALS: BP 132/54
--- NOTE | 2020-09-19 | Cardiology Progress Note ---
Subjective DATE OF SERVICE: Sep 18, 2020 Less SOB. Monitor: Afib to NSR, and episodes of AFib/flutter. Labs noted. Remains confused but directable. 2D echo: LVEF 25% Objective Last 24 Hour Vital Signs Date Time Temp Pulse Resp B/P (MAP) Pulse Ox O2 Delivery O2 Flow Rate FiO2 09/18/20 21:00 Nasal Cannula 2.0 09/18/20 20:32 97 Nasal Cannula 2.0 28 09/18/20 20:28 66 116/50 09/18/20 20:00 97.7 60 18 116/50 (72) 99 09/18/20 20:00 60 09/18/20 16:00 87 09/18/20 16:00 97.3 100 20 134/65 (88) 99 09/18/20 12:00 77 09/18/20 12:00 97.1 88 20 117/55 (75) 96 09/18/20 09:00 Nasal Cannula 2.0 09/18/20 08:34 111 140/60 09/18/20 08:34 140/60 09/18/20 08:00 82 09/18/20 08:00 96.6 111 20 140/60 (86) 100 09/18/20 04:00 97.5 69 18 130/70 (90) 100 09/18/20 04:00 94 09/18/20 00:00 86 09/18/20 00:00 97.5 82 20 124/64 (84) 100 ROS: still not obtainable due to dementia HEENT: normal ENT inspection RHYTHM: Afib LUNGS: rales bilaterally - few CARDIAC: normal rate, regular rhythm, normal S1 and S2, systolic murmur - 1/6 systolic at apex ABDOMEN: normal bowel sounds, non tender, soft, no organomegaly EXTREMITIES: normal range of motion, trace edema Laboratory Tests Test 09/18/20 05:44 Sodium Level 141 MMOL/L (136-145) Potassium Level 3.4 MMOL/L (3.5-5.1) L Chloride Level 105 MMOL/L (98-107) Carbon Dioxide Level 30 MMOL/L (21-32) Anion Gap 6 mmol/L (5-15) Blood Urea Nitrogen 24 mg/dL (7-18) H Creatinine 1.0 MG/DL (0.55-1.30) Estimat Glomerular Filtration Rate > 60 mL/min (>60) Glucose Level 85 MG/DL (74-106) Calcium Level 8.2 MG/DL (8.5-10.1) L Magnesium Level 2.0 MG/DL (1.8-2.4) Total Bilirubin 0.9 MG/DL (0.2-1.0) Aspartate Amino Transf (AST/SGOT) 17 U/L (15-37) Alanine Aminotransferase (ALT/SGPT) 13 U/L (12-78) Alkaline Phosphatase 15 U/L (46-116) L Pro-B-Type Natriuretic Peptide 78286 pg/mL (0-125) H Total Protein 5.7 G/DL (6.4-8.2) L Albumin 2.4 G/DL (3.4-5.0) L Globulin 3.3 g/dL Albumin/Globulin Ratio 0.7 (1.0-2.7) L Microbiology Date/Time Source Procedure Growth Status 09/16/20 06:00 Rectum VRE Culture - Final NO VANCOMYCIN RESISTANT ENTEROCOCCUS ... Complete 09/16/20 06:00 Rectal Mucosa - Final NO CARBAPENEM-RESISTANT ENTEROBACTERI... Complete 09/16/20 06:00 Nasal Nares MRSA Culture - Final NO METHICILLIN RESISTANT STAPH AUREUS... Complete 09/16/20 03:33 Nasopharynx SARS-CoV-2 RdRp Gene Assay - Final Complete Assessment/Plan Assessment/Plan Paroxysmal Atrial Fib/flutter Acute/chr systolic CHF Acute myocardial ischemia/possible NSTEMI Hypokalemia Cerebrovascular disease with multi-infarct dementia Abnormal Head CT with microhemorrhages Continue amiodarone to maintain sinus rhythm High risk for bleeding complications; no plan for full anticoagulation Titrate anti-failure and antiHTN regimens. Replace potassium as needed. Maintain anti-platelet drugs Diuresis Rey Katz MD Sep 19, 2020 00:00
[2020-09-19 04:00] VITALS: BP 132/53
[2020-09-19 07:11] LABS: MEAN CORPUSCULAR VOLUME 111 FL (80-99); PLATELET COUNT 176 K/UL (150-450); RED BLOOD COUNT 3.33 M/UL (4.70-6.10); RED CELL DISTRIBUTION WIDTH 12.7 % (11.6-14.8); WHITE BLOOD COUNT 3.7 K/UL (4.8-10.8)
[2020-09-19 07:45] LABS: ALANINE AMINOTRANSFERASE 12 U/L (12-78); ALBUMIN 2.4 G/DL (3.4-5.0); ALBUMIN/GLOBULIN RATIO 0.8 (1.0-2.7); ALKALINE PHOSPHATASE 14 U/L (46-116); ASPARTATE AMINO TRANSFERASE 23 U/L (15-37); BILIRUBIN,TOTAL 0.9 MG/DL (0.2-1.0); BLOOD UREA NITROGEN 25 mg/dL (7-18); CALCIUM 8.4 MG/DL (8.5-10.1); CARBON DIOXIDE 29 MMOL/L (21-32); CHLORIDE 104 MMOL/L (98-107); CREATININE 1.1 MG/DL (0.55-1.30); POTASSIUM 3.6 MMOL/L (3.5-5.1); SODIUM 141 MMOL/L (136-145)
[2020-09-19 08:00] VITALS: BP 127/65
[2020-09-19] MEDS: Metoprolol Tartrate 12.5mg TAB ORAL SCH ×2 (09:04→21:06)
[2020-09-19] MEDS: Amiodarone 200mg tab ORAL SCH ×2 (09:04→21:05)
[2020-09-19] MEDS: Aspirin EC 81mg tab ORAL SCH (09:04)
[2020-09-19] MEDS: Docusate 100mg cap ORAL SCH (09:04)
[2020-09-19] MEDS: Donepezil 5mg Tab ORAL SCH (09:04)
[2020-09-19] MEDS: Memantine 10mg tab ORAL SCH (09:05)
[2020-09-19] MEDS: Losartan 50mg tab ORAL SCH (09:05)
[2020-09-19] MEDS: Heparin 5000 units/ml inj SUBQ SCH ×2 (09:06→21:06)
--- NOTE | 2020-09-19 09:24 | General Progress Note ---
Subjective ROS Limited/Unobtainable: No Constitutional: Reports: malaise, weakness HEENT: Reports: no symptoms Cardiovascular: Reports: no symptoms Respiratory: Reports: cough, shortness of breath Gastrointestinal/Abdominal: Reports: no symptoms Genitourinary: Reports: no symptoms Neurologic/Psychiatric: Reports: no symptoms Endocrine: Reports: no symptoms Hematologic/Lymphatic: Reports: no symptoms Allergies: Coded Allergies: No Known Allergies (Unverified , 09/16/20) All Systems: reviewed and negative except above Subjective stable on o2. resting. laying flat. no distress. cxr with angelito effusion but improved aeration. no fever or chills. no cp. decreased sob. Objective Last 24 Hour Vital Signs Date Time Temp Pulse Resp B/P (MAP) Pulse Ox O2 Delivery O2 Flow Rate FiO2 09/19/20 09:05 127/65 09/19/20 09:04 71 127/65 09/19/20 08:00 97.7 71 18 127/65 (85) 95 09/19/20 04:00 76 09/19/20 04:00 96.5 76 20 132/53 (79) 95 09/19/20 00:00 58 09/19/20 00:00 96.6 60 18 132/54 (80) 97 09/18/20 21:00 Nasal Cannula 2.0 09/18/20 20:32 97 Nasal Cannula 2.0 28 09/18/20 20:28 66 116/50 09/18/20 20:00 97.7 60 18 116/50 (72) 99 09/18/20 20:00 60 09/18/20 16:00 87 09/18/20 16:00 97.3 100 20 134/65 (88) 99 09/18/20 12:00 77 09/18/20 12:00 97.1 88 20 117/55 (75) 96 Intake and Output 09/18/20 09/19/20 19:00 07:00 Intake Total 520 ml 30 ml Output Total 900 ml Balance -380 ml 30 ml Intake Oral 520 ml 30 ml Output Urine Total 900 ml # Bowel Movements 2 Laboratory Tests 09/19/20 04:50: White Blood Count 3.7L, Red Blood Count 3.33L, Hemoglobin 12.0L, Hematocrit 37.0L, Mean Corpuscular Volume 111H, Mean Corpuscular Hemoglobin 36.1H, Mean Corpuscular Hemoglobin Concent 32.5, Red Cell Distribution Width 12.7, Platelet Count 176, Mean Platelet Volume 8.6, Neutrophils (%) (Auto) , Lymphocytes (%) (Auto) , Monocytes (%) (Auto) , Eosinophils (%) (Auto) , Basophils (%) (Auto) , Neutrophils % (Manual) [Pending], Lymphocytes % (Manual) [Pending], Platelet Estimate [Pending], Platelet Morphology [Pending], Sodium Level 141, Potassium Level 3.6, Chloride Level 104, Carbon Dioxide Level 29, Blood Urea Nitrogen 25H, Creatinine 1.1, Estimat Glomerular Filtration Rate > 60, Glucose Level 78, Calcium Level 8.4L, Total Bilirubin 0.9, Aspartate Amino Transf (AST/SGOT) 23, Alanine Aminotransferase (ALT/SGPT) 12, Alkaline Phosphatase 14L, Pro-B-Type Natriuretic Peptide 91732M, Total Protein 5.5L, Albumin 2.4L, Globulin 3.1, Albumin/Globulin Ratio 0.8L Height (Feet): 5 Height (Inches): 6.00 Weight (Pounds): 145 Objective General Appearance: WD/WN, alert Neck: supple Cardiovascular: normal rate Respiratory/Chest: lungs clear, normal breath sounds, no respiratory distress, no accessory muscle use Abdomen: normal bowel sounds, non tender, soft, no organomegaly Edema: no edema noted Arm (L), no edema noted Arm (R), no edema noted Leg (L), no edema noted Leg (R) 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: 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 normal, no motor/sensory deficits, alert, oriented x 3 Assessment/Plan Problem List: (1) NSTEMI (non-ST elevated myocardial infarction) ICD Codes: I21.4 - Non-ST elevation (NSTEMI) myocardial infarction SNOMED: 33738032 (2) Shortness of breath ICD Codes: R06.02 - Shortness of breath SNOMED: 538502679 (3) Elevated troponin ICD Codes: R77.8 - Other specified abnormalities of plasma proteins SNOMED: 933719538, 889960965, 478860365 (4) CHF (congestive heart failure) ICD Codes: I50.9 - Heart failure, unspecified SNOMED: 71553894 (5) Weakness ICD Codes: R53.1 - Weakness SNOMED: 74219552, 264499858, 723129933 Status: stable Assessment/Plan: iv lasix wean o2 antiplt rx echo results reviewed cardiology appreciated monitor lytes replace as needed Donnell Pedersen MD Sep 19, 2020 09:24
[2020-09-19 12:00] VITALS: BP 128/71
[2020-09-19] MEDS: Acetaminophen 500mg (ES) tab ORAL PRN (14:09)
--- NOTE | 2020-09-19 15:04 | Surgery Progress Note ---
Surgery Progress Note Subjective Additional Comments afebrile, HD stable respiratory improved labs improved no n/v tolerating diet Objective Last 24 Hour Vital Signs Date Time Temp Pulse Resp B/P (MAP) Pulse Ox O2 Delivery O2 Flow Rate FiO2 09/19/20 12:00 97.9 87 18 128/71 (90) 96 09/19/20 12:00 80 09/19/20 09:05 127/65 09/19/20 09:04 71 127/65 09/19/20 09:00 Nasal Cannula 2.0 09/19/20 08:00 97.7 71 18 127/65 (85) 95 09/19/20 07:53 70 09/19/20 04:00 76 09/19/20 04:00 96.5 76 20 132/53 (79) 95 09/19/20 00:00 58 09/19/20 00:00 96.6 60 18 132/54 (80) 97 09/18/20 21:00 Nasal Cannula 2.0 09/18/20 20:32 97 Nasal Cannula 2.0 28 09/18/20 20:28 66 116/50 09/18/20 20:00 97.7 60 18 116/50 (72) 99 09/18/20 20:00 60 09/18/20 16:00 87 09/18/20 16:00 97.3 100 20 134/65 (88) 99 I&O Intake and Output 09/18/20 09/19/20 19:00 07:00 Intake Total 520 ml 30 ml Output Total 900 ml Balance -380 ml 30 ml Intake Oral 520 ml 30 ml Output Urine Total 900 ml # Bowel Movements 2 Cardiovascular: RSR Respiratory: clear, decreased breath sounds Abdomen: soft, non-tender, present bowel sounds, non-distended Extremities: no tenderness, no cyanosis Laboratory Tests Test 09/19/20 04:50 White Blood Count 3.7 K/UL (4.8-10.8) L Red Blood Count 3.33 M/UL (4.70-6.10) L Hemoglobin 12.0 G/DL (14.2-18.0) L Hematocrit 37.0 % (42.0-52.0) L Mean Corpuscular Volume 111 FL (80-99) H Mean Corpuscular Hemoglobin 36.1 PG (27.0-31.0) H Mean Corpuscular Hemoglobin Concent 32.5 G/DL (32.0-36.0) Red Cell Distribution Width 12.7 % (11.6-14.8) Platelet Count 176 K/UL (150-450) Mean Platelet Volume 8.6 FL (6.5-10.1) Neutrophils (%) (Auto) % (45.0-75.0) Lymphocytes (%) (Auto) % (20.0-45.0) Monocytes (%) (Auto) % (1.0-10.0) Eosinophils (%) (Auto) % (0.0-3.0) Basophils (%) (Auto) % (0.0-2.0) Differential Total Cells Counted 100 Neutrophils % (Manual) 69 % (45-75) Lymphocytes % (Manual) 18 % (20-45) L Monocytes % (Manual) 13 % (1-10) H Eosinophils % (Manual) 0 % (0-3) Basophils % (Manual) 0 % (0-2) Band Neutrophils 0 % (0-8) Platelet Estimate Adequate Platelet Morphology Normal Hypochromasia 1+ Macrocytosis 2+ Sodium Level 141 MMOL/L (136-145) Potassium Level 3.6 MMOL/L (3.5-5.1) Chloride Level 104 MMOL/L (98-107) Carbon Dioxide Level 29 MMOL/L (21-32) Blood Urea Nitrogen 25 mg/dL (7-18) H Creatinine 1.1 MG/DL (0.55-1.30) Estimat Glomerular Filtration Rate > 60 mL/min (>60) Glucose Level 78 MG/DL (74-106) Calcium Level 8.4 MG/DL (8.5-10.1) L Total Bilirubin 0.9 MG/DL (0.2-1.0) Aspartate Amino Transf (AST/SGOT) 23 U/L (15-37) Alanine Aminotransferase (ALT/SGPT) 12 U/L (12-78) Alkaline Phosphatase 14 U/L (46-116) L Pro-B-Type Natriuretic Peptide 44013 pg/mL (0-125) H Total Protein 5.5 G/DL (6.4-8.2) L Albumin 2.4 G/DL (3.4-5.0) L Globulin 3.1 g/dL Albumin/Globulin Ratio 0.8 (1.0-2.7) L Plan Problems: (1) Shortness of breath (2) CHF (congestive heart failure) (3) Weakness (4) Elevated troponin (5) NSTEMI (non-ST elevated myocardial infarction) (6) Malnutrition Assessment & Plan: DAILY ESTIMATED NEEDS: Needs based on underweight, pulmonary 51kg 30-35 kcals/kg 6799-7215 total kcals 1.25-1.5 g protein/kg 64-77 g total protein Fluid per MD On lasix NUTRITION DIAGNOSIS: Increased kcal and pro needs r/t underweight status as evidenced by pt w/ BMI underweight per guidelines, 79% of [place] Body Weight, w/ sacral redness. CURRENT DIET: Cardiac ms ground PO DIET RECOMMENDATIONS: Low Na diet/ texture per MERCHANDISE PRESENTATION MANAGER ADDITIONAL RECOMMENDATIONS: 1) Add Ensure Enlive BID w/ meals (350 kcal, 20g pro each) 2) Add snacks as tolerated in b/w meals 3) Replete lytes as needed (Low K 3.3) 4) maintain daily calibrated bed scale wts BMI now underweight 5) Consider Kcal count to evaluate po intake (7) Abnormal LFTs Assessment & Plan: elevated t bili ast/alt okay US ordered trend labs cont fluids will follow with resc. Liver: The liver is normal in size and echogenicity. No focal abnormalities are noted. Gallbladder: The gallbladder is normal. No stones are visualized. The wall is not thickened. Is no sonographic Galvan sign. Common bile duct: Normal in size. Pancreas: The visualized portion of pancreas is normal in echogenicity. There are no masses. Kidneys: The kidneys are normal in size and demonstrate cortical thinning. There is fullness of the right collecting system. There is a 2.2 cm parapelvic right renal cyst. There is a subcentimeter right midpole cyst. Prostate is within normal limits in volume. There is mild post void residual volume of 65 mL. Spleen: The spleen is normal in size and echogenicity. Additional findings: Images aorta is unremarkable. There is a large right pleural effusion. There is a large left pleural effusion. IMPRESSION: 1. Mildly atrophic kidneys. 2. Fullness of the right collecting system without sonographic evidence of obstructive process. 3. Mild post void residual volume of 65 mL. 4. Large bilateral pleural effusions. 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 loose bm soilage. patient not able to always states when. wash daily with NS. apply skin protectant turn q2h off load pressure monitor for incontinence and care appropriately thank you Mo Siegel Sep 19, 2020 15:04
[2020-09-19 16:00] VITALS: BP 134/51
[2020-09-19 20:00] VITALS: BP 125/57
[2020-09-20] VITALS: BP 131/62
--- NOTE | 2020-09-20 00:56 | Cardiology Progress Note ---
Subjective DATE OF SERVICE: Sep 19, 2020 Less SOB. Monitor: Afib to NSR, and episodes of AFib/flutter. Labs noted. Remains confused but directable. 2D echo: LVEF 25% Objective Last 24 Hour Vital Signs Date Time Temp Pulse Resp B/P (MAP) Pulse Ox O2 Delivery O2 Flow Rate FiO2 09/19/20 21:06 91 125/57 09/19/20 21:00 Nasal Cannula 1.0 09/19/20 20:00 97.7 96 17 125/57 (79) 97 09/19/20 20:00 93 09/19/20 19:42 99 Nasal Cannula 2.0 28 09/19/20 16:00 96.7 82 18 134/51 (78) 97 09/19/20 16:00 98 09/19/20 14:39 97.9 09/19/20 12:00 97.9 87 18 128/71 (90) 96 09/19/20 12:00 80 09/19/20 09:05 127/65 09/19/20 09:04 71 127/65 09/19/20 09:00 Nasal Cannula 2.0 09/19/20 08:00 97.7 71 18 127/65 (85) 95 09/19/20 07:53 70 09/19/20 04:00 76 09/19/20 04:00 96.5 76 20 132/53 (79) 95 ROS: still not obtainable due to dementia HEENT: normal ENT inspection RHYTHM: Afib LUNGS: rales bilaterally - few CARDIAC: normal rate, regular rhythm, normal S1 and S2, systolic murmur - 1/6 systolic at apex ABDOMEN: normal bowel sounds, non tender, soft, no organomegaly EXTREMITIES: normal range of motion, trace edema Laboratory Tests Test 09/19/20 04:50 White Blood Count 3.7 K/UL (4.8-10.8) L Red Blood Count 3.33 M/UL (4.70-6.10) L Hemoglobin 12.0 G/DL (14.2-18.0) L Hematocrit 37.0 % (42.0-52.0) L Mean Corpuscular Volume 111 FL (80-99) H Mean Corpuscular Hemoglobin 36.1 PG (27.0-31.0) H Mean Corpuscular Hemoglobin Concent 32.5 G/DL (32.0-36.0) Red Cell Distribution Width 12.7 % (11.6-14.8) Platelet Count 176 K/UL (150-450) Mean Platelet Volume 8.6 FL (6.5-10.1) Neutrophils (%) (Auto) % (45.0-75.0) Lymphocytes (%) (Auto) % (20.0-45.0) Monocytes (%) (Auto) % (1.0-10.0) Eosinophils (%) (Auto) % (0.0-3.0) Basophils (%) (Auto) % (0.0-2.0) Differential Total Cells Counted 100 Neutrophils % (Manual) 69 % (45-75) Lymphocytes % (Manual) 18 % (20-45) L Monocytes % (Manual) 13 % (1-10) H Eosinophils % (Manual) 0 % (0-3) Basophils % (Manual) 0 % (0-2) Band Neutrophils 0 % (0-8) Platelet Estimate Adequate Platelet Morphology Normal Hypochromasia 1+ Macrocytosis 2+ Sodium Level 141 MMOL/L (136-145) Potassium Level 3.6 MMOL/L (3.5-5.1) Chloride Level 104 MMOL/L (98-107) Carbon Dioxide Level 29 MMOL/L (21-32) Blood Urea Nitrogen 25 mg/dL (7-18) H Creatinine 1.1 MG/DL (0.55-1.30) Estimat Glomerular Filtration Rate > 60 mL/min (>60) Glucose Level 78 MG/DL (74-106) Calcium Level 8.4 MG/DL (8.5-10.1) L Total Bilirubin 0.9 MG/DL (0.2-1.0) Aspartate Amino Transf (AST/SGOT) 23 U/L (15-37) Alanine Aminotransferase (ALT/SGPT) 12 U/L (12-78) Alkaline Phosphatase 14 U/L (46-116) L Pro-B-Type Natriuretic Peptide 12148 pg/mL (0-125) H Total Protein 5.5 G/DL (6.4-8.2) L Albumin 2.4 G/DL (3.4-5.0) L Globulin 3.1 g/dL Albumin/Globulin Ratio 0.8 (1.0-2.7) L Assessment/Plan Assessment/Plan Paroxysmal Atrial Fib/flutter Acute/chr systolic CHF Acute myocardial ischemia/possible NSTEMI Hypokalemia Cerebrovascular disease with multi-infarct dementia Abnormal Head CT with microhemorrhages Continue amiodarone to maintain sinus rhythm High risk for bleeding complications; no plan for full anticoagulation Titrate anti-failure and antiHTN regimens. Replace potassium as needed. Maintain anti-platelet drugs Diuresis advanced Add aldactone Rey Katz MD Sep 20, 2020 00:55
[2020-09-20 04:00] VITALS: BP 135/50
--- NOTE | 2020-09-20 07:35 | General Progress Note ---
Subjective ROS Limited/Unobtainable: No Constitutional: Reports: malaise, weakness HEENT: Reports: no symptoms Cardiovascular: Reports: no symptoms Respiratory: Reports: cough Gastrointestinal/Abdominal: Reports: no symptoms Genitourinary: Reports: no symptoms Neurologic/Psychiatric: Reports: pre-existing deficit Endocrine: Reports: no symptoms Hematologic/Lymphatic: Reports: no symptoms Allergies: Coded Allergies: No Known Allergies (Unverified , 09/16/20) All Systems: reviewed and negative except above Subjective stable on o2. resting. laying flat. no distress. Objective Last 24 Hour Vital Signs Date Time Temp Pulse Resp B/P (MAP) Pulse Ox O2 Delivery O2 Flow Rate FiO2 09/20/20 04:00 58 09/20/20 04:00 97.9 58 19 135/50 (78) 95 09/20/20 00:00 97.9 73 17 131/62 (85) 97 09/20/20 00:00 78 09/19/20 21:06 91 125/57 09/19/20 21:00 Nasal Cannula 1.0 09/19/20 20:00 97.7 96 17 125/57 (79) 97 09/19/20 20:00 93 09/19/20 19:42 99 Nasal Cannula 2.0 28 09/19/20 16:00 96.7 82 18 134/51 (78) 97 09/19/20 16:00 98 09/19/20 14:39 97.9 09/19/20 12:00 97.9 87 18 128/71 (90) 96 09/19/20 12:00 80 09/19/20 09:05 127/65 09/19/20 09:04 71 127/65 09/19/20 09:00 Nasal Cannula 2.0 09/19/20 08:00 97.7 71 18 127/65 (85) 95 09/19/20 07:53 70 Intake and Output 09/19/20 09/20/20 19:00 07:00 Intake Total 850 ml 260 ml Output Total 950 ml Balance -100 ml 260 ml Intake Oral 850 ml 260 ml Output Urine Total 950 ml # Voids 2 # Bowel Movements 1 Height (Feet): 5 Height (Inches): 6.00 Weight (Pounds): 145 Objective General Appearance: WD/WN, alert Neck: supple Cardiovascular: normal rate Respiratory/Chest: lungs clear, normal breath sounds, no respiratory distress, no accessory muscle use Abdomen: normal bowel sounds, non tender, soft, no organomegaly Edema: no edema noted Arm (L), no edema noted Arm (R), no edema noted Leg (L), no edema noted Leg (R) 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 normal, no motor/sensory deficits, alert, oriented x 3 Assessment/Plan Problem List: (1) NSTEMI (non-ST elevated myocardial infarction) ICD Codes: I21.4 - Non-ST elevation (NSTEMI) myocardial infarction SNOMED: 72914124 (2) Shortness of breath ICD Codes: R06.02 - Shortness of breath SNOMED: 382083167 (3) Elevated troponin ICD Codes: R77.8 - Other specified abnormalities of plasma proteins SNOMED: 080716618, 840693305, 466168432 (4) CHF (congestive heart failure) ICD Codes: I50.9 - Heart failure, unspecified SNOMED: 79644409 (5) Weakness ICD Codes: R53.1 - Weakness SNOMED: 42167911, 611009460, 619976436 Status: stable Assessment/Plan: iv lasix wean o2 monitor cxr- pending for today antiplt rx echo results reviewed cardiology appreciated monitor lytes replace as needed Donnell Pedersen MD Sep 20, 2020 07:35
[2020-09-20 08:00] VITALS: BP 121/50
[2020-09-20 08:34] LABS: ANION GAP 7 mmol/L (5-15); BLOOD UREA NITROGEN 21 mg/dL (7-18); CALCIUM 8.1 MG/DL (8.5-10.1); CARBON DIOXIDE 30 MMOL/L (21-32); CHLORIDE 102 MMOL/L (98-107); POTASSIUM 3.1 MMOL/L (3.5-5.1); SODIUM 139 MMOL/L (136-145)
[2020-09-20] MEDS: Memantine 10mg tab ORAL SCH (08:35)
[2020-09-20] MEDS: Donepezil 5mg Tab ORAL SCH (08:35)
[2020-09-20] MEDS: Losartan 50mg tab ORAL SCH (08:35)
[2020-09-20] MEDS: Docusate 100mg cap ORAL SCH (08:35)
[2020-09-20] MEDS: Metoprolol Tartrate 12.5mg TAB ORAL SCH ×2 (08:35→21:26)
[2020-09-20] MEDS: Spironolactone 25mg tab ORAL SCH (08:36)
[2020-09-20] MEDS: Aspirin EC 81mg tab ORAL SCH (08:36)
[2020-09-20] MEDS: Amiodarone 200mg tab ORAL SCH ×2 (08:36→21:25)
[2020-09-20] MEDS: Heparin 5000 units/ml inj SUBQ SCH ×2 (08:39→21:25)
[2020-09-20 12:00] VITALS: BP 90/50
--- NOTE | 2020-09-20 13:19 | Surgery Progress Note ---
Surgery Progress Note Subjective Additional Comments no acute events respiratory stable no n/v cxr pending results Objective Last 24 Hour Vital Signs Date Time Temp Pulse Resp B/P (MAP) Pulse Ox O2 Delivery O2 Flow Rate FiO2 09/20/20 12:00 85 09/20/20 12:00 98.9 97 20 90/50 (63) 97 09/20/20 08:35 91 121/50 09/20/20 08:35 121/50 09/20/20 08:34 Nasal Cannula 1.0 09/20/20 08:00 100 09/20/20 08:00 97.7 91 20 121/50 (73) 94 09/20/20 04:00 58 09/20/20 04:00 97.9 58 19 135/50 (78) 95 09/20/20 00:00 97.9 73 17 131/62 (85) 97 09/20/20 00:00 78 09/19/20 21:06 91 125/57 09/19/20 21:00 Nasal Cannula 1.0 09/19/20 20:00 97.7 96 17 125/57 (79) 97 09/19/20 20:00 93 09/19/20 19:42 99 Nasal Cannula 2.0 28 09/19/20 16:00 96.7 82 18 134/51 (78) 97 09/19/20 16:00 98 09/19/20 14:39 97.9 I&O Intake and Output 09/19/20 09/20/20 19:00 07:00 Intake Total 850 ml 260 ml Output Total 950 ml Balance -100 ml 260 ml Intake Oral 850 ml 260 ml Output Urine Total 950 ml # Voids 2 # Bowel Movements 1 Cardiovascular: RSR Respiratory: decreased breath sounds Abdomen: non-tender, present bowel sounds, non-distended Extremities: no tenderness, no cyanosis Laboratory Tests Test 09/20/20 06:03 Sodium Level 139 MMOL/L (136-145) Potassium Level 3.1 MMOL/L (3.5-5.1) L Chloride Level 102 MMOL/L (98-107) Carbon Dioxide Level 30 MMOL/L (21-32) Anion Gap 7 mmol/L (5-15) Blood Urea Nitrogen 21 mg/dL (7-18) H Creatinine 1.0 MG/DL (0.55-1.30) Estimat Glomerular Filtration Rate > 60 mL/min (>60) Glucose Level 88 MG/DL (74-106) Calcium Level 8.1 MG/DL (8.5-10.1) L Magnesium Level 1.9 MG/DL (1.8-2.4) Pro-B-Type Natriuretic Peptide 8873 pg/mL (0-125) H Plan Problems: (1) Shortness of breath (2) CHF (congestive heart failure) (3) Weakness (4) Elevated troponin (5) NSTEMI (non-ST elevated myocardial infarction) (6) Malnutrition Assessment & Plan: DAILY ESTIMATED NEEDS: Needs based on underweight, pulmonary 51kg 30-35 kcals/kg 0313-8567 total kcals 1.25-1.5 g protein/kg 64-77 g total protein Fluid per MD On lasix NUTRITION DIAGNOSIS: Increased kcal and pro needs r/t underweight status as evidenced by pt w/ BMI underweight per guidelines, 79% of [place] Body Weight, w/ sacral redness. CURRENT DIET: Cardiac ms ground PO DIET RECOMMENDATIONS: Low Na diet/ texture per FACSIMILE OPERATOR ADDITIONAL RECOMMENDATIONS: 1) Add Ensure Enlive BID w/ meals (350 kcal, 20g pro each) 2) Add snacks as tolerated in b/w meals 3) Replete lytes as needed (Low K 3.3) 4) maintain daily calibrated bed scale wts BMI now underweight 5) Consider Kcal count to evaluate po intake (7) Abnormal LFTs Assessment & Plan: elevated t bili ast/alt okay US ordered trend labs cont fluids will follow with resc. Liver: The liver is normal in size and echogenicity. No focal abnormalities are noted. Gallbladder: The gallbladder is normal. No stones are visualized. The wall is not thickened. Is no sonographic Galvan sign. Common bile duct: Normal in size. Pancreas: The visualized portion of pancreas is normal in echogenicity. There are no masses. Kidneys: The kidneys are normal in size and demonstrate cortical thinning. There is fullness of the right collecting system. There is a 2.2 cm parapelvic right renal cyst. There is a subcentimeter right midpole cyst. Prostate is within normal limits in volume. There is mild post void residual volume of 65 mL. Spleen: The spleen is normal in size and echogenicity. Additional findings: Images aorta is unremarkable. There is a large right pleural effusion. There is a large left pleural effusion. IMPRESSION: 1. Mildly atrophic kidneys. 2. Fullness of the right collecting system without sonographic evidence of obstructive process. 3. Mild post void residual volume of 65 mL. 4. Large bilateral pleural effusions. 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 loose bm soilage. patient not able to always states when. wash daily with NS. apply skin protectant turn q2h off load pressure monitor for incontinence and care appropriately thank you Mo Siegel Sep 20, 2020 13:18
[2020-09-20] MEDS: dilTIAZem HCl 25mg/5ml Inj IVP SCH ×2 (13:30→15:27)
[2020-09-20 16:00] VITALS: BP 112/64
[2020-09-20 20:00] VITALS: BP 118/50
[2020-09-21] VITALS (7 sets, daily range): BP systolic 104–141; BP diastolic 47–81
--- NOTE | 2020-09-21 02:15 | Cardiology Progress Note ---
Subjective DATE OF SERVICE: Sep 20, 2020 Less SOB. Monitor: NSR with episodes of AFib/flutter. Labs noted - potassium is 3.1 Remains confused but directable. 2D echo: LVEF 25% Objective Last 24 Hour Vital Signs Date Time Temp Pulse Resp B/P (MAP) Pulse Ox O2 Delivery O2 Flow Rate FiO2 09/21/20 00:00 97.0 65 19 111/73 (86) 97 09/21/20 00:00 65 09/20/20 21:26 79 118/50 09/20/20 21:00 Nasal Cannula 1.0 09/20/20 20:00 62 09/20/20 20:00 98.4 79 19 118/50 (72) 97 09/20/20 16:00 72 09/20/20 16:00 97.6 88 20 112/64 (80) 98 09/20/20 15:27 85 90/50 09/20/20 13:30 85 90/50 09/20/20 12:00 85 09/20/20 12:00 98.9 97 20 90/50 (63) 97 09/20/20 08:35 91 121/50 09/20/20 08:35 121/50 09/20/20 08:34 Nasal Cannula 1.0 09/20/20 08:00 100 09/20/20 08:00 97.7 91 20 121/50 (73) 94 09/20/20 04:00 58 09/20/20 04:00 97.9 58 19 135/50 (78) 95 ROS: still not obtainable due to dementia HEENT: normal ENT inspection RHYTHM: Afib LUNGS: rales bilaterally - few CARDIAC: normal rate, regular rhythm, normal S1 and S2, systolic murmur - 1/6 systolic at apex ABDOMEN: normal bowel sounds, non tender, soft, no organomegaly EXTREMITIES: normal range of motion, trace edema Laboratory Tests Test 09/20/20 06:03 Sodium Level 139 MMOL/L (136-145) Potassium Level 3.1 MMOL/L (3.5-5.1) L Chloride Level 102 MMOL/L (98-107) Carbon Dioxide Level 30 MMOL/L (21-32) Anion Gap 7 mmol/L (5-15) Blood Urea Nitrogen 21 mg/dL (7-18) H Creatinine 1.0 MG/DL (0.55-1.30) Estimat Glomerular Filtration Rate > 60 mL/min (>60) Glucose Level 88 MG/DL (74-106) Calcium Level 8.1 MG/DL (8.5-10.1) L Magnesium Level 1.9 MG/DL (1.8-2.4) Pro-B-Type Natriuretic Peptide 8873 pg/mL (0-125) H Assessment/Plan Assessment/Plan Paroxysmal Atrial Fib/flutter Acute/chr systolic CHF Acute myocardial ischemia/possible NSTEMI Hypokalemia Cerebrovascular disease with multi-infarct dementia Abnormal Head CT with microhemorrhages Continue amiodarone to maintain sinus rhythm High risk for bleeding complications; no plan for full anticoagulation Titrate anti-failure and antiHTN regimens. Replace potassium as needed; recheck Mg++ Maintain anti-platelet drugs Diuresis ongoing; trend BNP. Continue aldactone Possible DC on oral diuretics in next 1-2 days. Rey Katz MD Sep 21, 2020 02:15
[2020-09-21 07:29] LABS: ALANINE AMINOTRANSFERASE 15 U/L (12-78); ALBUMIN 2.4 G/DL (3.4-5.0); ALBUMIN/GLOBULIN RATIO 0.8 (1.0-2.7); ALKALINE PHOSPHATASE 12 U/L (46-116); ANION GAP 3 mmol/L (5-15); ASPARTATE AMINO TRANSFERASE 17 U/L (15-37); BILIRUBIN,TOTAL 0.7 MG/DL (0.2-1.0); BLOOD UREA NITROGEN 19 mg/dL (7-18); CALCIUM 8.2 MG/DL (8.5-10.1); CARBON DIOXIDE 31 MMOL/L (21-32); CHLORIDE 106 MMOL/L (98-107); POTASSIUM 3.9 MMOL/L (3.5-5.1); SODIUM 140 MMOL/L (136-145)
[2020-09-21 07:33] LABS: BASOPHILS % (AUTO) 1.3 % (0.0-2.0); EOSINOPHILS % (AUTO) 1.4 % (0.0-3.0); HEMATOCRIT 33.3 % (42.0-52.0); HEMOGLOBIN 11.1 G/DL (14.2-18.0); LYMPHOCYTES % (AUTO) 28.4 % (20.0-45.0); MEAN CORPUSCULAR VOLUME 106 FL (80-99); MONOCYTES % (AUTO) 13.3 % (1.0-10.0); NEUTROPHILS % (AUTO) 55.6 % (45.0-75.0); PLATELET COUNT 181 K/UL (150-450); RED BLOOD COUNT 3.13 M/UL (4.70-6.10); RED CELL DISTRIBUTION WIDTH 12.6 % (11.6-14.8); WHITE BLOOD COUNT 3.5 K/UL (4.8-10.8)
[2020-09-21] MEDS: Amiodarone 200mg tab ORAL SCH ×2 (08:07→21:47)
[2020-09-21] MEDS: Docusate 100mg cap ORAL SCH (08:07)
[2020-09-21] MEDS: Memantine 10mg tab ORAL SCH (08:07)
[2020-09-21] MEDS: Donepezil 5mg Tab ORAL SCH (08:07)
[2020-09-21] MEDS: Aspirin EC 81mg tab ORAL SCH (08:07)
[2020-09-21] MEDS: Losartan 50mg tab ORAL SCH (08:08)
[2020-09-21] MEDS: Metoprolol Tartrate 12.5mg TAB ORAL SCH ×2 (08:08→21:47)
[2020-09-21] MEDS: Spironolactone 25mg tab ORAL SCH (08:08)
[2020-09-21] MEDS: Heparin 5000 units/ml inj SUBQ SCH ×2 (08:09→21:48)
--- NOTE | 2020-09-21 09:06 | General Progress Note ---
Subjective ROS Limited/Unobtainable: No Constitutional: Reports: malaise, weakness HEENT: Reports: no symptoms Cardiovascular: Reports: no symptoms Respiratory: Reports: cough, shortness of breath Gastrointestinal/Abdominal: Reports: no symptoms Genitourinary: Reports: no symptoms Neurologic/Psychiatric: Reports: pre-existing deficit Endocrine: Reports: no symptoms Hematologic/Lymphatic: Reports: anemia Allergies: Coded Allergies: No Known Allergies (Unverified , 09/16/20) All Systems: reviewed and negative except above Subjective stable on o2. resting. laying flat. no distress. cxr noted. no fever or chills. no distress. tolerating po Objective Last 24 Hour Vital Signs Date Time Temp Pulse Resp B/P (MAP) Pulse Ox O2 Delivery O2 Flow Rate FiO2 09/21/20 08:56 65 09/21/20 08:08 59 122/81 09/21/20 08:08 122/81 09/21/20 08:05 96.0 59 16 122/81 (95) 95 09/21/20 04:00 75 09/21/20 04:00 97.7 69 17 122/66 (84) 97 09/21/20 00:00 97.0 65 19 111/73 (86) 97 09/21/20 00:00 65 09/20/20 21:26 79 118/50 09/20/20 21:00 Nasal Cannula 1.0 09/20/20 20:00 62 09/20/20 20:00 98.4 79 19 118/50 (72) 97 09/20/20 16:00 72 09/20/20 16:00 97.6 88 20 112/64 (80) 98 09/20/20 15:27 85 90/50 09/20/20 13:30 85 90/50 09/20/20 12:00 85 09/20/20 12:00 98.9 97 20 90/50 (63) 97 Intake and Output 09/20/20 09/21/20 19:00 07:00 Intake Total 400 ml 260 ml Output Total 1800 ml Balance -1400 ml 260 ml Intake Oral 400 ml 260 ml Output Urine Total 1800 ml # Voids 4 2 # Bowel Movements 1 Laboratory Tests 09/21/20 06:30: White Blood Count 3.5L, Red Blood Count 3.13L, Hemoglobin 11.1L, Hematocrit 33.3L, Mean Corpuscular Volume 106H, Mean Corpuscular Hemoglobin 35.6H, Mean Corpuscular Hemoglobin Concent 33.4, Red Cell Distribution Width 12.6, Platelet Count 181, Mean Platelet Volume 9.8, Neutrophils (%) (Auto) 55.6, Lymphocytes (%) (Auto) 28.4, Monocytes (%) (Auto) 13.3H, Eosinophils (%) (Auto) 1.4, Basophils (%) (Auto) 1.3, Sodium Level 140, Potassium Level 3.9, Chloride Level 106, Carbon Dioxide Level 31, Anion Gap 3L, Blood Urea Nitrogen 19H, Creatinine 1.0, Estimat Glomerular Filtration Rate > 60, Glucose Level 94, Calcium Level 8.2L, Magnesium Level 2.0, Total Bilirubin 0.7, Aspartate Amino Transf (AST/SGOT) 17, Alanine Aminotransferase (ALT/SGPT) 15, Alkaline Phosphatase 12L, Pro-B-Type Natriuretic Peptide 6341H, Total Protein 5.4L, Albumin 2.4L, Globulin 3.0, Albumin/Globulin Ratio 0.8L Height (Feet): 5 Height (Inches): 6.00 Weight (Pounds): 145 Objective General Appearance: WD/WN, alert Neck: supple Cardiovascular: normal rate Respiratory/Chest: lungs clear, normal breath sounds, no respiratory distress, no accessory muscle use Abdomen: normal bowel sounds, non tender, soft, no organomegaly Edema: no edema noted Arm (L), no edema noted Arm (R), no edema noted Leg (L), no edema noted Leg (R) 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 normal, no motor/sensory deficits, alert, oriented x 3 Assessment/Plan Problem List: (1) NSTEMI (non-ST elevated myocardial infarction) ICD Codes: I21.4 - Non-ST elevation (NSTEMI) myocardial infarction SNOMED: 10621287 (2) Shortness of breath ICD Codes: R06.02 - Shortness of breath SNOMED: 632497705 (3) Elevated troponin ICD Codes: R77.8 - Other specified abnormalities of plasma proteins SNOMED: 908443319, 587173715, 402669844 (4) CHF (congestive heart failure) ICD Codes: I50.9 - Heart failure, unspecified SNOMED: 90025716 (5) Weakness ICD Codes: R53.1 - Weakness SNOMED: 44346203, 257182737, 170053068 Status: stable Assessment/Plan: iv lasix wean o2 monitor cxr- improving bet still with effusions antiplt rx echo results reviewed cardiology appreciated monitor lytes replace as needed dc planning Donnell Pedersen MD Sep 21, 2020 09:06
--- NOTE | 2020-09-21 12:36 | Surgery Progress Note ---
Surgery Progress Note Subjective Symptoms: improved, tolerating diet, passing flatus Objective Last 24 Hour Vital Signs Date Time Temp Pulse Resp B/P (MAP) Pulse Ox O2 Delivery O2 Flow Rate FiO2 09/21/20 11:47 97.5 59 16 104/47 (66) 98 09/21/20 08:57 Nasal Cannula 1.0 09/21/20 08:56 65 09/21/20 08:08 59 122/81 09/21/20 08:08 122/81 09/21/20 08:05 96.0 59 16 122/81 (95) 95 09/21/20 04:00 75 09/21/20 04:00 97.7 69 17 122/66 (84) 97 09/21/20 00:00 97.0 65 19 111/73 (86) 97 09/21/20 00:00 65 09/20/20 21:26 79 118/50 09/20/20 21:00 Nasal Cannula 1.0 09/20/20 20:00 62 09/20/20 20:00 98.4 79 19 118/50 (72) 97 09/20/20 16:00 72 09/20/20 16:00 97.6 88 20 112/64 (80) 98 09/20/20 15:27 85 90/50 09/20/20 13:30 85 90/50 I&O Intake and Output 09/20/20 09/21/20 19:00 07:00 Intake Total 400 ml 260 ml Output Total 1800 ml Balance -1400 ml 260 ml Intake Oral 400 ml 260 ml Output Urine Total 1800 ml # Voids 4 2 # Bowel Movements 1 Dressing: saturated Cardiovascular: RSR Respiratory: decreased breath sounds Abdomen: non-tender, present bowel sounds, non-distended Extremities: no edema, no tenderness, no cyanosis Laboratory Tests Test 09/21/20 06:30 White Blood Count 3.5 K/UL (4.8-10.8) L Red Blood Count 3.13 M/UL (4.70-6.10) L Hemoglobin 11.1 G/DL (14.2-18.0) L Hematocrit 33.3 % (42.0-52.0) L Mean Corpuscular Volume 106 FL (80-99) H Mean Corpuscular Hemoglobin 35.6 PG (27.0-31.0) H Mean Corpuscular Hemoglobin Concent 33.4 G/DL (32.0-36.0) Red Cell Distribution Width 12.6 % (11.6-14.8) Platelet Count 181 K/UL (150-450) Mean Platelet Volume 9.8 FL (6.5-10.1) Neutrophils (%) (Auto) 55.6 % (45.0-75.0) Lymphocytes (%) (Auto) 28.4 % (20.0-45.0) Monocytes (%) (Auto) 13.3 % (1.0-10.0) H Eosinophils (%) (Auto) 1.4 % (0.0-3.0) Basophils (%) (Auto) 1.3 % (0.0-2.0) Sodium Level 140 MMOL/L (136-145) Potassium Level 3.9 MMOL/L (3.5-5.1) Chloride Level 106 MMOL/L (98-107) Carbon Dioxide Level 31 MMOL/L (21-32) Anion Gap 3 mmol/L (5-15) L Blood Urea Nitrogen 19 mg/dL (7-18) H Creatinine 1.0 MG/DL (0.55-1.30) Estimat Glomerular Filtration Rate > 60 mL/min (>60) Glucose Level 94 MG/DL (74-106) Calcium Level 8.2 MG/DL (8.5-10.1) L Magnesium Level 2.0 MG/DL (1.8-2.4) Total Bilirubin 0.7 MG/DL (0.2-1.0) Aspartate Amino Transf (AST/SGOT) 17 U/L (15-37) Alanine Aminotransferase (ALT/SGPT) 15 U/L (12-78) Alkaline Phosphatase 12 U/L (46-116) L Pro-B-Type Natriuretic Peptide 6341 pg/mL (0-125) H Total Protein 5.4 G/DL (6.4-8.2) L Albumin 2.4 G/DL (3.4-5.0) L Globulin 3.0 g/dL Albumin/Globulin Ratio 0.8 (1.0-2.7) L Plan Problems: (1) Shortness of breath (2) CHF (congestive heart failure) (3) Weakness (4) Elevated troponin (5) NSTEMI (non-ST elevated myocardial infarction) (6) Malnutrition Assessment & Plan: DAILY ESTIMATED NEEDS: Needs based on underweight, pulmonary 51kg 30-35 kcals/kg 4620-4482 total kcals 1.25-1.5 g protein/kg 64-77 g total protein Fluid per MD On lasix NUTRITION DIAGNOSIS: Increased kcal and pro needs r/t underweight status as evidenced by pt w/ BMI underweight per guidelines, 79% of [place] Body Weight, w/ sacral redness. CURRENT DIET: Cardiac ms ground PO DIET RECOMMENDATIONS: Low Na diet/ texture per ABALONE PROCESSOR ADDITIONAL RECOMMENDATIONS: 1) Add Ensure Enlive BID w/ meals (350 kcal, 20g pro each) 2) Add snacks as tolerated in b/w meals 3) Replete lytes as needed (Low K 3.3) 4) maintain daily calibrated bed scale wts BMI now underweight 5) Consider Kcal count to evaluate po intake (7) Abnormal LFTs Assessment & Plan: elevated t bili ast/alt okay US ordered trend labs cont fluids will follow with resc. Liver: The liver is normal in size and echogenicity. No focal abnormalities are noted. Gallbladder: The gallbladder is normal. No stones are visualized. The wall is not thickened. Is no sonographic Galvan sign. Common bile duct: Normal in size. Pancreas: The visualized portion of pancreas is normal in echogenicity. There are no masses. Kidneys: The kidneys are normal in size and demonstrate cortical thinning. There is fullness of the right collecting system. There is a 2.2 cm parapelvic right renal cyst. There is a subcentimeter right midpole cyst. Prostate is within normal limits in volume. There is mild post void residual volume of 65 mL. Spleen: The spleen is normal in size and echogenicity. Additional findings: Images aorta is unremarkable. There is a large right pleural effusion. There is a large left pleural effusion. IMPRESSION: 1. Mildly atrophic kidneys. 2. Fullness of the right collecting system without sonographic evidence of obstructive process. 3. Mild post void residual volume of 65 mL. 4. Large bilateral pleural effusions. 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 loose bm soilage. patient not able to always states when. wash daily with NS. apply skin protectant turn q2h off load pressure monitor for incontinence and care appropriately thank you Mo Siegel Sep 21, 2020 12:36
[2020-09-21] MEDS ORDERED: ACETAMINOPHEN500 M5 ORAL (15:17)
[2020-09-21] MEDS ORDERED: AMIODARONE HCL400 M1 ORAL (15:18)
[2020-09-21] MEDS ORDERED: FUROSEMIDE40 MG ORAL (15:19)
[2020-09-21] MEDS ORDERED: ASPIRIN81 MG ORAL (15:19)
[2020-09-21] MEDS ORDERED: SPIRONOLACTONE25 MG ORAL (15:20)
[2020-09-21] MEDS ORDERED: METOPROLOL TART25 MG ORAL (15:20)
[2020-09-21] MEDS ORDERED: RESTORIL15 MG ORAL (15:21)
--- NOTE | 2020-09-21 23:46 | Cardiology Progress Note ---
Subjective DATE OF SERVICE: Sep 21, 2020 No SOB. Monitor: NSR with PAC's. No recurrent AFib. Low potassium repleted. Remains confused but directable. 2D echo: LVEF 25% Objective Last 24 Hour Vital Signs Date Time Temp Pulse Resp B/P (MAP) Pulse Ox O2 Delivery O2 Flow Rate FiO2 09/21/20 21:47 102 141/68 09/21/20 21:00 Nasal Cannula 1.0 09/21/20 20:00 101 09/21/20 20:00 97.2 101 20 141/68 (92) 96 09/21/20 19:12 97 Nasal Cannula 2.0 28 09/21/20 16:00 109 09/21/20 16:00 96.6 88 20 139/67 (91) 95 09/21/20 12:42 65 09/21/20 11:47 97.5 59 16 104/47 (66) 98 09/21/20 08:57 Nasal Cannula 1.0 09/21/20 08:56 65 09/21/20 08:08 59 122/81 09/21/20 08:08 122/81 09/21/20 08:05 96.0 59 16 122/81 (95) 95 09/21/20 06:31 98 Nasal Cannula 2.0 28 09/21/20 04:00 75 09/21/20 04:00 97.7 69 17 122/66 (84) 97 09/21/20 00:00 97.0 65 19 111/73 (86) 97 09/21/20 00:00 65 ROS: still not obtainable due to dementia HEENT: normal ENT inspection RHYTHM: Afib LUNGS: rales bilaterally - few CARDIAC: normal rate, regular rhythm, normal S1 and S2, systolic murmur - 1/6 systolic at apex ABDOMEN: normal bowel sounds, non tender, soft, no organomegaly EXTREMITIES: normal range of motion, trace edema Laboratory Tests Test 09/21/20 06:30 White Blood Count 3.5 K/UL (4.8-10.8) L Red Blood Count 3.13 M/UL (4.70-6.10) L Hemoglobin 11.1 G/DL (14.2-18.0) L Hematocrit 33.3 % (42.0-52.0) L Mean Corpuscular Volume 106 FL (80-99) H Mean Corpuscular Hemoglobin 35.6 PG (27.0-31.0) H Mean Corpuscular Hemoglobin Concent 33.4 G/DL (32.0-36.0) Red Cell Distribution Width 12.6 % (11.6-14.8) Platelet Count 181 K/UL (150-450) Mean Platelet Volume 9.8 FL (6.5-10.1) Neutrophils (%) (Auto) 55.6 % (45.0-75.0) Lymphocytes (%) (Auto) 28.4 % (20.0-45.0) Monocytes (%) (Auto) 13.3 % (1.0-10.0) H Eosinophils (%) (Auto) 1.4 % (0.0-3.0) Basophils (%) (Auto) 1.3 % (0.0-2.0) Sodium Level 140 MMOL/L (136-145) Potassium Level 3.9 MMOL/L (3.5-5.1) Chloride Level 106 MMOL/L (98-107) Carbon Dioxide Level 31 MMOL/L (21-32) Anion Gap 3 mmol/L (5-15) L Blood Urea Nitrogen 19 mg/dL (7-18) H Creatinine 1.0 MG/DL (0.55-1.30) Estimat Glomerular Filtration Rate > 60 mL/min (>60) Glucose Level 94 MG/DL (74-106) Calcium Level 8.2 MG/DL (8.5-10.1) L Magnesium Level 2.0 MG/DL (1.8-2.4) Total Bilirubin 0.7 MG/DL (0.2-1.0) Aspartate Amino Transf (AST/SGOT) 17 U/L (15-37) Alanine Aminotransferase (ALT/SGPT) 15 U/L (12-78) Alkaline Phosphatase 12 U/L (46-116) L Pro-B-Type Natriuretic Peptide 6341 pg/mL (0-125) H Total Protein 5.4 G/DL (6.4-8.2) L Albumin 2.4 G/DL (3.4-5.0) L Globulin 3.0 g/dL Albumin/Globulin Ratio 0.8 (1.0-2.7) L Assessment/Plan Assessment/Plan Paroxysmal Atrial Fib/flutter Acute/chr systolic CHF Acute myocardial ischemia/possible NSTEMI Hypokalemia Cerebrovascular disease with multi-infarct dementia Abnormal Head CT with microhemorrhages Continue amiodarone to maintain sinus rhythm; maintenance dose 200qd. High risk for bleeding complications; no plan for full anticoagulation Continue current anti-failure and antiHTN regimen. Replace potassium as needed. Maintain anti-platelet drugs Maintenance dose diuretic dose with furosemide and aldactone ordered. DC to SNF arranged; meds reviewed and updated. Rey Katz MD Sep 21, 2020 23:45
--- NOTE | 2020-09-22 20:07 | Diagnostic Imaging Report ---
EXAM: XR Chest, 2 Views CLINICAL HISTORY: F/U TECHNIQUE: Frontal and lateral views of the chest. COMPARISON: 09/18/20. FINDINGS: Lungs: Unremarkable. No consolidation. Pleural space: Stable moderate left and trace right pleural effusions. Apical pleural/parenchymal scarring. No pneumothorax Heart: Unremarkable. No cardiomegaly. Mediastinum: Calcified aorta. Bones/joints: Calcific tendinosis of the right rotator cuff. IMPRESSION: Stable examination with redemonstrated moderate left and trace right pleural effusions.
--- NOTE | 2020-09-25 10:33 | Discharge Summary ---
Discharge Summary Discharge Summary _ DATE OF ADMISSION: 09/16/2020 DATE OF DISCHARGE: 09/21/2020 DISCHARGED BY: Dr. Pedersen REASON FOR ADMISSION: 85 years old male with past medical history of atrial fibrillation, hypertension, congestive heart failure, dementia, resident of alf facility, was sent for evaluation due to generalized weakness for the last 24 hours. When paramedics arrived patient was found to have irregular beat with heart rate between 85 and 120. Patient was not in acute distress. Patient chronically on supplemental oxygen 2 L via nasal cannula. No reported fever or chills. No headache or vision change. No chest pain . Upon evaluation blood pressure was elevated 160/82, pulse oximetry on 4 L of oxygen was 96%. Laboratory work-up revealed no leukocytosis, hemoglobin 11.9, hematocrit 36.2, platelet count 162. Stable electrolytes . BUN 21 , creatinine 1.0. Glucose 116. Stable LFT. Troponin 0.07 , pro BNP 70658. EKG revealed normal sinus rhythm with T wave inversion in V3; no acute ischemic changes . No ectopy. No pauses. Albumin 2.7. Rapid COVID-19 was negative. Chest x-ray demonstrated cardiomegaly with mild to moderate vascular congestion and moderate left pleural effusion. CT of the head revealed few scattered foci of punctate peripheral hyperdensity, possibly reflective of microhemorrhage, which can be seen in the setting of hypertension and / or amyloidosis. No mass-effect , midline shift or hydrocephalus. Age-related changes noted . Patient subsequently admitted with elevated troponin , shortness of breath , congestive heart failure ,generalized weakness . 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 Siegel [facility] COURSE: Patient admitted to telemetry floor. Patient started on IV diuretics with close monitoring of volumes and cardiorenal parameters. Supplemental oxygen provided and titrated to keep pulse oximetry above 92% . Pulmonary toilet provided. Antiplatelet therapy with aspirin continued. Serial troponin monitored . Beta-blockade provided. Second troponin trended down , minimally elevated 0.059. Echocardiogram demonstrated global left ventricular hypokinesis with left ventricular ejection fraction estimated to be 20 to 25%. Moderate aortic regurgitation, moderate to severe mitral regurgitation. Right ventricular systolic pressure of 48 consistent with a moderate pulmonary hypertension. Severe pulmonic regurgitation. Patient developed atrial fibrillation/flutter with rapid ventricular response. With Cardizem IV heart rate stabilized Patient was initiated on amiodarone. Upon discharge amiodarone changed to maintenance dose 200 mg daily. Patient spontaneously converted to sinus rhythm. Patient was a high risk for bleeding complication , thus no plan for full anticoagulation. Guideline directed medical therapy for congestive heart failure provided with beta-raheem , ARB and diuretics: Lasix and Aldactone (added later_. Pro BNP trended down. Potassium was replaced. Antiplatelet treatment continued. , Lasix changed to maintenance dose upon discharge . DVT prophylaxis provided. Surgeon followed. Patient with incontinence associated dermatitis in sacral region. Wound care provided as per surgeon recommendation, continue wound care at the facility. Protein supplements provided as per registered dietitian recommendation. Supportive care provided. Patient clinically stabilized and was ready for discharge back to alf facility for continuation of care. FINAL DIAGNOSES Paroxysmal atrial fibrillation /flutter with RVR Acute on chronic systolic congestive heart failure Acute myocardial ischemia Possible NSTEMI Hypokalemia Cerebrovascular disease with multi-infarct dementia Abnormal CT head with microhemorrhage Protein calorie malnutrition Incontinence associated dermatitis DISCHARGE MEDICATIONS: See Medication Reconciliation list. DISCHARGE INSTRUCTIONS: Patient was discharged to the alf facility. Follow up with medical doctor at the facility. I have been assigned to dictate discharge summary for this account. I was not involved in the patient's management. Dulce Gonzalez NP Sep 25, 2020 10:33
== END 2020-09-21 23:05 | DRG 280 ==
LOC: EDBD 03:04 → EMR 03:35 → 2E 04:06 → EDBEDREQ 04:50 → 2E 09-18 12:26
DX: I21.4 Non-ST elevation (NSTEMI) myocardial infarction (principal); I50.23 Acute on chronic systolic (congestive) heart failure; F01.51 Vascular dementia, unspecified severity, with behavioral disturbance; E46 Unspecified protein-calorie malnutrition; I48.92 Unspecified atrial flutter; Z68.1 Body mass index [BMI] 19.9 or less, adult; I48.0 Paroxysmal atrial fibrillation; I11.0 Hypertensive heart disease with heart failure; F03.90 Unspecified dementia, unspecified severity, without behavioral disturbance, psychotic disturbance, mood disturbance, and anxiety; E87.6 Hypokalemia; N26.1 Atrophy of kidney (terminal); I27.20 Pulmonary hypertension, unspecified; I35.1 Nonrheumatic aortic (valve) insufficiency; I34.0 Nonrheumatic mitral (valve) insufficiency; I37.1 Nonrheumatic pulmonary valve insufficiency; F01.50 Vascular dementia, unspecified severity, without behavioral disturbance, psychotic disturbance, mood disturbance, and anxiety; Z86.73 Personal history of transient ischemic attack (TIA), and cerebral infarction without residual deficits; L30.8 Other specified dermatitis; M19.90 Unspecified osteoarthritis, unspecified site; R93.0 Abnormal findings on diagnostic imaging of skull and head, not elsewhere classified
CPT/HCPCS: 36415; 70450; 71045; 76700; 80048; 80053; 82248; 83735; 83880; 84484; 85007; 85025; 87081; 93005; 93306; 96374; 99285; J8499; U0002

== ENCOUNTER 2020-11-01 04:29 | Inpatient (IN) | payer MEDICARE, MEDICAID ==
[2020-11-01] VITALS (9 sets, daily range): BP systolic 124–141; BP diastolic 43–77
[~2020-11-01] VITALS: Ht 167.6 cm; Wt 57.7 kg
[~2020-11-01 04:29] MED LIST: ACETAMINOPHEN325 M1 ORAL; ACETAMINOPHEN500 M5 ORAL; AMIODARONE HCL400 M1 ORAL; ASPIRIN81 MG ORAL; BETAMETHASONE D15 GM TP; CALCIPOTRIENE60 GM TP; COLACE100 MG ORAL; DONEPEZIL HCL5 M2 ORAL; DULCOLAX10 MG RC; ELIDEL TP; FUROSEMIDE40 MG ORAL; LOSARTAN POTASS50 MG ORAL; MEDROL DOSEPAK4 MG ORAL; METOPROLOL TART25 MG ORAL; MILK OF MA400 MG/51 ORAL; MULTIVITAMINS1 EAC2 ORAL; NAMENDA10 MG ORAL; RESTORIL15 MG ORAL; SPIRONOLACTONE25 MG ORAL; TACROLIMUS30 G1 TP
[2020-11-01] MEDS ORDERED: MILK OF MA400 MG/51 ORAL (04:37)
[2020-11-01] MEDS ORDERED: CATAPRES0.1 MG ORAL (04:37)
--- NOTE | 2020-11-01 04:40 | Emergency Room Report ---
History of Present Illness General Chief Complaint: Dyspnea/Respdistress Source: Patient, Medical Record, EMS Present Illness HPI Patient brought from [facility] facility with paramedics. Apparently his oxygen saturation was 80%. He improved to 95% on 15 L by nonrebreather mask. He tested positive for Covid on October 01 The patient was recently treated here. In the past he tested negative for Covid at that time. 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 COVID-19 Screening: Positive COVID-19 COVID-19 Testing Source: SNF Path see info packet Patient History Limited by: medical condition Past Medical History: see triage record, old chart reviewed Social History: Denies: smoking, alcohol use, drug use Social History Narrative Thea Hooker Reviewed Nursing Documentation: PMH: Agreed; PSxH: Agreed Nursing Documentation-PMH Past Medical History: No History, Except For Hx Hypertension: Yes Review of Systems All Other Systems: limited Physical Exam Vital Signs Date Time Temp Pulse Resp B/P (MAP) Pulse Ox O2 Delivery O2 Flow Rate FiO2 11/01/20 04:18 99.0 88 24 177/90 (119) 99 Non-Rebreather 15.0 Sp02 EP Interpretation: reviewed, abnormal - Interpreted as low by me General Appearance: alert, moderate distress Eyes: bilateral eye normal inspection, bilateral eye PERRL, bilateral eye EOMI ENT: normal pharynx, moist mucus membranes Neck: full range of motion, supple Respiratory: crackles - Left, rales - left, wheezing, expiration - L sided Cardiovascular #1: no edema, other - minimal JVD sitting, more expiratory Cardiovascular #2: 2+ radial (R) Gastrointestinal: decreased bowel sounds, scaphoid Genitourinary: no CVA tenderness Musculoskeletal: no calf tenderness, other - atrophy Neurologic: alert - eyes closed, motor weakness - diffuse Psychiatric: anxious Skin: Decubitus/Ulcer - Stage I sacral, other - cool, no mottling Procedures Critical Care Time Critical Care Time Total Critical Care Time: 90 min bedside evaluation and treatment excludes procedures (EKG). Reason for critical care: Hypoxia, tachypnea, BiPAP, elevated troponin, repeat evaluations Possible complications: hypotension, hypertension, AK, shock, arrhythmias, met abolic acidosis, end organ damage, respiratory failure. Interventions: BiPAP, repeat evaluations, dexamethasone, antibiotics, Lovenox, aspirin, determination level of care Course: Patient presented with respiratory distress and hypoxia. After initial evaluation BiPAP ordered. Complex patient has history of congestive heart failure and recent Covid positive status. Discussed with patient with nurse sample sewer level of care. Patient wants full treatment. Improvement on BiPAP. Call for positive troponin. Aspirin administered. Also Lovenox begun. Elevated lactate. Due to history of congestive heart failure fluids not bolused at this time. Azithromycin and dexamethasone begun. Repeat evaluation with dramatic improvement in heart rate and respiratory distress. Consultations: nursing staff, EMS, RN sample sewer, respiratory therapy, admitting physician Performed by: Dr. Diaz Tolerated well condition = critical Medical Decision Making Diagnostic Impression: Primary Impression: Hypoxia Additional Impressions: Respiratory distress NSTEMI (non-ST elevated myocardial infarction) CHF (congestive heart failure) Qualified Codes: I50.9 - Heart failure, unspecified COVID-19 virus detected Renal insufficiency Elevated d-dimer Pneumonia due to COVID-19 virus ER Course Patient presents with respiratory distress. Differential includes Covid, pneumonia, sepsis, congestive heart failure, acute myocardial infarction amongst others. The fact that the patient tested positive on October 01 makes Covid less likely at this time. He was treated for congestive heart failure in the past and his exam could be consistent with cardiac asthma. Evaluation with EKG, chest x-ray and labs including COVID-19 testing. In addition the patient is in respiratory distress and needs support with BiPAP. Patient is placed on a cardiac nurse specialist. Initially consideration for giving him fluids however with the history of congestive heart failure fluids are being held at this time. On Bipap 50% satting at 99%. Duoneb ordered. 500 Called with +trop. Aspirin and lovenox ordered. 535\ EKG without injury. Chest x-ray with bilateral infiltrates and effusions bilaterally. This is worsened from prior x-rays. Labs with normal white count with lymphopenia. CMP with renal insufficiency, slightly elevated potassium and low sodium. Glucose elevated. BNP greater than 35,000. Urinalysis with some pyuria. COVID + test. Also, complex presentation as elevated lactic acid with normal WBC and appearance of bilateral infiltrates c/w CHF. Will cover with antibiotics (azithrmycin) although picture does not appear infectious. (Consideration for lasix and nitro-bid but clinically improving. Await rest of CMP.) 540 Repeat lactic acid improved but still high. Patient signed out to Dr. Olivarez. Dr. Katz notified of admission. Laboratory Tests Test 11/01/20 04:54 11/01/20 05:04 11/01/20 05:05 11/01/20 05:15 White Blood Count 9.1 K/UL (4.8-10.8) Red Blood Count 3.75 M/UL (4.70-6.10) L Hemoglobin 12.7 G/DL (14.2-18.0) L Hematocrit 36.6 % (42.0-52.0) L Mean Corpuscular Volume 98 FL (80-99) Mean Corpuscular Hemoglobin 33.8 PG (27.0-31.0) H Mean Corpuscular Hemoglobin Concent 34.6 G/DL (32.0-36.0) Red Cell Distribution Width 15.4 % (11.6-14.8) H Platelet Count 274 K/UL (150-450) Mean Platelet Volume 7.5 FL (6.5-10.1) Neutrophils (%) (Auto) 78.3 % (45.0-75.0) H Lymphocytes (%) (Auto) 16.6 % (20.0-45.0) L Monocytes (%) (Auto) 4.2 % (1.0-10.0) Eosinophils (%) (Auto) 0.1 % (0.0-3.0) Basophils (%) (Auto) 0.8 % (0.0-2.0) Sodium Level 128 MMOL/L (136-145) L Potassium Level 5.4 MMOL/L (3.5-5.1) H Chloride Level 96 MMOL/L (98-107) L Carbon Dioxide Level 24 MMOL/L (21-32) Anion Gap 8 mmol/L (5-15) Blood Urea Nitrogen 37 mg/dL (7-18) H Creatinine 1.4 MG/DL (0.55-1.30) H Estimated Glomerular Filtration Rate 48.2 mL/min (>60) Glucose Level 213 MG/DL (74-106) H Lactic Acid Level 4.20 mmol/L (0.4-2.0) H Calcium Level 8.3 MG/DL (8.5-10.1) L Ferritin 589 NG/ML (8-388) H Total Bilirubin 0.7 MG/DL (0.2-1.0) Aspartate Amino Transferase (AST) 78 U/L (15-37) H Alanine Aminotransferase (ALT) 59 U/L (12-78) Alkaline Phosphatase 23 U/L (46-116) L Lactate Dehydrogenase 293 U/L (81-234) H Total Creatine Kinase 49 U/L (26-308) Troponin I 0.060 ng/mL (0.000-0.056) C-Reactive Protein, Quantitative 2.3 mg/dL (0.00-0.90) H Pro-B-Type Natriuretic Peptide > 01968 pg/mL (0-125) H Total Protein 7.1 G/DL (6.4-8.2) Albumin 2.6 G/DL (3.4-5.0) L Globulin 4.5 g/dL Albumin/Globulin Ratio 0.6 (1.0-2.7) L Lipase 210 U/L (73-393) Arterial Blood pH 7.316 (7.350-7.450) Arterial Blood Partial Pressure CO2 35.1 mmHg (35.0-45.0) Arterial Blood Partial Pressure O2 107.3 mmHg (75.0-100.0) H Arterial Blood HCO3 17.5 mmol/L (22.0-26.0) *L Arterial Blood Oxygen Saturation 97.4 % (95-100) Arterial Blood Base Excess -7.8 (-2-2) L Basilio Test Positive Urine Color Yellow Urine Appearance Clear Urine pH 6.5 (4.5-8.0) Urine Specific Electra 1.015 (1.005-1.035) Urine Protein 3+ (NEGATIVE) H Urine Glucose (UA) Negative (NEGATIVE) Urine Ketones Negative (NEGATIVE) Urine Blood 2+ (NEGATIVE) H Urine Nitrite Positive (NEGATIVE) H Urine Bilirubin Negative (NEGATIVE) Urine Urobilinogen 1 MG/DL (0.0-1.0) H Urine Leukocyte Esterase 1+ (NEGATIVE) H Urine RBC 15-20 /HPF (0 - 0) H Urine WBC 5-10 /HPF (0 - 0) H Urine Squamous Epithelial Cells Few /LPF (NONE/OCC) Urine Bacteria Many /HPF (NONE) H Prothrombin Time 12.0 SEC (9.30-11.50) H Prothrombin Time INR 1.1 (0.9-1.1) Activated Partial Thromboplast Time 24 SEC (23-33) D-Dimer 3.19 mg/L FEU (0.00-0.49) H Test 11/01/20 06:25 Lactic Acid Level 3.40 mmol/L (0.66-2.22) H Microbiology Date/Time Source Procedure Growth Status 11/01/20 04:54 Nasopharynx SARS-CoV-2 RdRp Gene Assay - Final Complete EKG Diagnostic Results Rate: tachycardiac Rhythm: other - a fib ST Segments: no acute changes Rhythm Strip Diag. Results EP Interpretation: yes Rhythm: no PVC's, no ectopy, other - Marco tachycardia Chest X-Ray Diagnostic Results Chest X-Ray Diagnostic Results : Chest X-Ray Ordered: Yes # of Views/Limited/Complete: 1 View Indication: Shortness of Breath EP Interpretation: Yes Interpretation: no pneumothorax, other - bilateral infiltrates, bilateral infiltrates Impression: Other Electronically Signed by: Electronically signed by Rey Diaz MD Last Vital Signs Date Time Temp Pulse Resp B/P (MAP) Pulse Ox O2 Delivery O2 Flow Rate FiO2 11/01/20 08:00 93.0 47 15 135/47 (76) 100 11/01/20 06:52 60 11/01/20 06:45 Bi-pap 11/01/20 04:50 15.0 Status: improved Disposition: ADMITTED INPATIENT Condition: Critical Rey Diaz MD Nov 01, 2020 04:40
[2020-11-01] MEDS ORDERED: Albuterol/Ipratropium 3ml neb HHN ONE (04:45)
[2020-11-01 05:01] LABS: BASOPHILS % (AUTO) 0.8 % (0.0-2.0); EOSINOPHILS % (AUTO) 0.1 % (0.0-3.0); HEMATOCRIT 36.6 % (42.0-52.0); HEMOGLOBIN 12.7 G/DL (14.2-18.0); LYMPHOCYTES % (AUTO) 16.6 % (20.0-45.0); MEAN CORPUSCULAR VOLUME 98 FL (80-99); MONOCYTES % (AUTO) 4.2 % (1.0-10.0); NEUTROPHILS % (AUTO) 78.3 % (45.0-75.0); PLATELET COUNT 274 K/UL (150-450); RED BLOOD COUNT 3.75 M/UL (4.70-6.10); RED CELL DISTRIBUTION WIDTH 15.4 % (11.6-14.8); WHITE BLOOD COUNT 9.1 K/UL (4.8-10.8)
[2020-11-01] MEDS ORDERED: Enoxaparin 60mg Inj SUBQ STA (05:37)
[2020-11-01 05:45] LABS: APPEARANCE,URINE CLEAR; BILIRUBIN, URINE NEGATIVE (NEGATIVE); COLOR,URINE YELLOW; GLUCOSE, URINE (UA) NEGATIVE (NEGATIVE); KETONES,URINE NEGATIVE (NEGATIVE); LEUKOCYTE ESTERASE ,URINE 1+ (NEGATIVE); NITRITE,URINE POSITIVE (NEGATIVE); PH,URINE 6.5 (4.5-8.0); PROTEIN,URINE 3+ (NEGATIVE); UROBILINOGEN,URINE 1 MG/DL (0.0-1.0)
[2020-11-01] MEDS ORDERED: Azithromycin 500 MG in NS 275 ML IV ONE (05:45)
[2020-11-01 05:47] LABS: ANION GAP 8 mmol/L (5-15); BLOOD UREA NITROGEN 37 mg/dL (7-18); CALCIUM 8.3 MG/DL (8.5-10.1); CARBON DIOXIDE 24 MMOL/L (21-32); CHLORIDE 96 MMOL/L (98-107); CREATININE 1.4 MG/DL (0.55-1.30); POTASSIUM 5.4 MMOL/L (3.5-5.1); SODIUM 128 MMOL/L (136-145)
[2020-11-01 05:56] LABS: INR 1.1 (0.9-1.1)
[2020-11-01] MEDS ORDERED: dexAMETHasone 10mg/ml Inj IV ONE (06:00)
[2020-11-01 06:01] LABS: ALANINE AMINOTRANSFERASE 59 U/L (12-78); ALBUMIN 2.6 G/DL (3.4-5.0); ALBUMIN/GLOBULIN RATIO 0.6 (1.0-2.7); ALKALINE PHOSPHATASE 23 U/L (46-116); ASPARTATE AMINO TRANSFERASE 78 U/L (15-37); BILIRUBIN,TOTAL 0.7 MG/DL (0.2-1.0); CREATINE KINASE 49 U/L (26-308); FERRITIN 589 NG/ML (8-388); LACTATE DEHYDROGENASE 293 U/L (81-234)
[2020-11-01] MEDS ORDERED: Acetaminophen 650 MG SUPP RECTAL PRN (08:30)
--- NOTE | 2020-11-01 08:56 | Diagnostic Imaging Report ---
. Indication: Dyspnea Technique: One view of the chest Comparison: 09/20/2020 Findings: Stable left pleural effusion. New right pleural effusion. There there is extensive bilateral interstitial and airspace pulmonary parenchymal disease. The heart size is upper limits of normal. Impression: Bilateral extensive and diffuse pulmonary edema versus infiltrates. Bilateral pleural effusions
[2020-11-01] MEDS: Metoprolol Tartrate 12.5mg TAB ORAL SCH ×2 (09:00→20:55)
[2020-11-01] MEDS: Amiodarone 200mg tab ORAL SCH (09:00)
[2020-11-01] MEDS: cefTRIAXone 1 GM in D5W 55 ML IVPB SCH (09:35)
[2020-11-01] MEDS: Enoxaparin 60mg Inj SUBQ SCH (09:35)
--- NOTE | 2020-11-01 10:30 | Consultation ---
DATE OF CONSULTATION: 11/01/2020 CARDIOLOGY CONSULTATION CONSULTING PHYSICIAN: Rey Katz MD. REFERRING PHYSICIAN: Donnell Pedersen MD. REASON FOR CONSULTATION: Elevated troponin level and atrial fibrillation. HISTORY OF PRESENT ILLNESS: This is an 85-year-old [place] gentleman who resides at a custodial facility. He was short of breath and noted to be hypoxic. He tested positive for COVID-19 approximately one month ago. However, he cleared that subsequently. Now, in the emergency room he is COVID-19 positive once again. The patient is unable to give any reliable history. Records are reviewed. jail chart is noted. PAST MEDICAL HISTORY: Includes coronary artery disease, chronic congestive heart failure due to systolic dysfunction, history of myocardial infarction, paroxysmal atrial fibrillation and flutter, cerebrovascular disease with dementia, microhemorrhages, protein-calorie malnutrition, incontinence, and osteoarthritis. ALLERGIES: None. MEDICATIONS: Reviewed and reconciled. FAMILY HISTORY: Noncontributory. SOCIAL HISTORY: Negative for smoking, alcohol, or substance abuse. REVIEW OF SYSTEMS: Limited and pertinent data from record review is outlined above. PHYSICAL EXAMINATION: GENERAL: He is in moderate respiratory distress. He is ill appearing. VITAL SIGNS: Temperature 99, blood pressure 177/90, heart rate 88, respiratory rate 24. He is on a non-rebreather mask saturating 99%. HEENT: Accessory muscle use is noted. Dry mucous membranes. CARDIAC: Irregularly irregular rhythm, rapid rate. Normal S1, S2. LUNGS: With moderate rhonchi. ABDOMEN: Soft, nontender. EXTREMITIES: No edema. Capillary refill is diminished. LABORATORY AND DIAGNOSTIC DATA: EKG - atrial fibrillation, rapid ventricular response, and nonspecific ST-T wave change. Chest x-ray, bilateral infiltrates and small pleural effusions. White count 9.1 hemoglobin 12.7. Lactic acid 4.2. Troponin 0.06. Pro-natriuretic peptide over 35,000. Albumin 2.6. Sodium 128, potassium 5.4, bicarb 24, chloride 96, BUN 37, creatinine 1.4. Glucose 213. IMPRESSION: 1. COVID-19 pneumonia. 2. Hypoxia. 3. Acute respiratory failure. 4. Acute on chronic systolic congestive heart failure. 5. Lactic acidosis. 6. Hyperkalemia. 7. Hyponatremia. 8. Acute on chronic kidney injury. 9. Acute coronary insufficiency. 10. Moderate protein-calorie malnutrition. 11. Urinary tract infection. 12. Critical and guarded. PLAN: 1. ICU care. 2. Attempt to contact family members to discuss advanced directives. 3. Oxygenation with Ventimask, BiPAP if needed. 4. Saline hydration. 5. Monitor electrolytes, consider Kayexalate. 6. Serial lactic acid levels. 7. IV steroids. 8. Subcutaneous high-dose Lovenox. 9. ID consultation to consider remdesivir therapy. 10. Empiric antimicrobials for urinary pathogens. 11. Continue amiodarone for arrhythmia suppression, beta-raheem for rate control. 12. Serial cardiac enzymes. 13. Stepwise titration of antihypertensives as needed. Rey Katz M.D. DR: SANJIV JOB#: [id number] CC:
--- NOTE | 2020-11-01 13:44 | Consultation ---
DATE OF CONSULTATION: 11/01/2020 INFECTIOUS DISEASES CONSULTATION CONSULTING PHYSICIAN: Coretta Garcia MD. REFERRING PHYSICIAN: Rey Katz MD. REASON FOR CONSULTATION: COVID-19 pneumonia. HISTORY OF PRESENTING ILLNESS: This is an 85-year-old gentleman with history of coronary artery disease, congestive heart failure, myocardial infarction, CVA, dementia who comes in with shortness of breath. He has been placed on a BiPAP and an Infectious Diseases consultation has been obtained for antibiotics. PAST MEDICAL HISTORY: 1. History of coronary artery disease. 2. CHF. 3. Myocardial infarction. 4. Atrial fibrillation. 5. CVA. SOCIAL HISTORY: He does not smoke, drink, or use drugs. FAMILY HISTORY: Unknown. REVIEW OF SYSTEMS: Unable to obtain currently. MEDICATIONS: As an inpatient, he is on dexamethasone, Protonix, metoprolol, amiodarone, ceftriaxone, enoxaparin, clonidine, Tylenol. ALLERGIES: No known drug allergies. PHYSICAL EXAMINATION: VITAL SIGNS: Temperature of , T-max of 99, pulse of 50, respiratory rate 18, blood pressure 135/47, O2 saturation on FiO2 of 60% is 100%. Examination deferred due to COVID-19. LABORATORY AND DIAGNOSTIC DATA: White count 9.1, hemoglobin 12.7, hematocrit 36.6, MCV 98, platelet count of 274. Sodium 128, potassium 5.4, chloride 96, bicarb 24, BUN 37, creatinine 1.4, glucose 213, calcium 8.3. Ferritin 589. Total bilirubin 0.7, AST 78, ALT 59, alkaline phosphatase 23. LDH 293. CK of 49. Troponin 0.06. C-reactive protein 2.3. Beta-natriuretic peptide more than 35,000. Total protein 7.1, albumin 2.6. UA is showing 5 to 10 white cells. COVID-19 test is positive. Chest x-ray is showing bilateral extensive and diffuse pulmonary edema versus infiltrate. ASSESSMENT: This an 85-year-old gentleman with history of coronary artery disease, congestive heart failure, dementia who comes in with shortness of breath and is found to have: 1. COVID-19 pneumonia. He is on a BiPAP. 2. Congestive heart failure. 3. Coronary artery disease. 4. Atrial fibrillation. 5. Dementia. PLAN: 1. Continue dexamethasone day #1. 2. We will start the patient on ivermectin 3. Continue isolation. 4. We will follow up patient clinically. I would like to thank, Dr. Katz, for this consultation. Coretta Garcia M.D. DR: Nicho JOB#: [id number] CC: Rey Katz M.D. MTDDavid
--- NOTE | 2020-11-01 16:30 | Consultation ---
DATE OF CONSULTATION: 11/01/2020 PULMONARY CONSULTATION CONSULTING PHYSICIAN: Samuel Santamaria MD HISTORY OF PRESENT ILLNESS: This is an 85-year-old shelter resident, who was brought to the hospital with hypoxemia. He was started on nonrebreather mask and currently he is placed on a BiPAP. He had been positive for COVID for approximately . It is noted that he has tested negative for COVID also in the recent past. His most recent COVID-19 yesterday obtained was positive for COVID again. His x-ray of chest is reviewed and shows extensive bilateral pulmonary infiltrates and small bilateral pleural effusions as well. PAST MEDICAL HISTORY: Notable for paroxysmal atrial flutter with RVR, acute on chronic systolic congestive heart failure, previous CA, and CVA with multi-infarct dementia. MEDICATIONS: His list of medications are reviewed and reconciled. At this time, I note he is on amiodarone, Rocephin, Decadron, Lovenox, metoprolol, and Protonix. He is also getting IV fluids at 75 per hour. REVIEW OF SYSTEMS: Not obtainable. PHYSICAL EXAMINATION: GENERAL: Reveals an elderly male. VITAL SIGNS: Blood pressure 130/40, heart rate 64, respirations 22, and O2 saturation 98% on BiPAP 15/5 on 60% FiO2. HEENT: Unremarkable. CHEST: Decreased breath sounds bilaterally with fine crackles. ABDOMEN: Soft. EXTREMITIES: There is no edema. LABORATORY DATA: Lab testing shows hemoglobin 12.7. Creatinine of 1.4. Sodium 128. Lactic acid 4.2, now 3.4. LDH 293. Troponin 0.06. ProBNP more than 35,000. Coags show D-dimer of 3.1. Urinalysis shows few pus cells. IMAGING STUDIES: Discussed above. IMPRESSION: 1. COVID-19 pneumonia. 2. Suspect pulmonary edema. 3. History of CHF. 4. Multi-infarct dementia. 5. Hypertension. DISCUSSION: Agree with antibiotics. Agree with Decadron. Agree with Lovenox. Continue BiPAP for now. Supplemental oxygen. I would suggest diuresis and keep the patient on the primer expeditor and drier side. We will discuss with Cardiology. We will follow carefully. Samuel Santamaria M.D. DR: Reggie JOB#: [id number] CC:
--- NOTE | 2020-11-01 18:26 | Consultation ---
History of Present Illness General Date patient seen: Nov 01, 2020 Reason for Hospitalization: Dyspnea/Respdistress Present Illness HPI 85F well known to me from prior admission who presented with respiratory decline to [facility] ED from care facility noted to have desaturation on bipap, abnormal labs, lactic acidosis, cxr noted, decubitus skin ulcer, malnutrition. limited history in ICU on support. care plan initiated. Allergies: Coded Allergies: No Known Allergies (Unverified , 09/16/20) COVID-19 Screening Contact w/high risk pt: Yes Experienced COVID-19 symptoms?: Yes Coronavirus symptoms experienc: Shortness of Breath Medication History Scheduled Acetaminophen (Acetaminophen), 500 MG ORAL Q4H, (Reported) Amiodarone Hcl* (Amiodarone Hcl*), 200 MG ORAL DAILY, (Reported) Aspirin* (Aspirin*), 81 MG ORAL DAILY, (Reported) Clonidine Hcl* (Catapres*), 0.1 MG ORAL EVERY 6 HOURS, (Reported) Docusate Sodium* (Colace*), 200 MG ORAL DAILY, (Reported) Donepezil Hcl* (Donepezil Hcl*), 5 MG ORAL DAILY, (Reported) Losartan Potassium* (Losartan Potassium*), 100 MG ORAL DAILY, (Reported) Magnesium Hydroxide* (Milk Of Magnesia*), 30 ML ORAL DAILY, (Reported) Memantine Hcl* (Namenda*), 10 MG ORAL DAILY, (Reported) Metoprolol Tartrate* (Metoprolol Tartrate*), 12.5 MG ORAL EVERY 12 HOURS, (Reported) Spironolactone* (Aldactone*), 25 MG ORAL DAILY, (Reported) Discontinued Medications Furosemide* (Lasix*), 40 MG ORAL DAILY, (Reported) Discontinued Reason: MD discontinued med Temazepam* (Restoril*), 15 MG ORAL BEDTIME PRN for Insomnia, (Reported) Discontinued Reason: MD discontinued med Patient History History Provided By: Medical Record, PMD Healthcare decision maker Resuscitation status Advanced Directive on File Past Medical/Surgical History Past Medical/Surgical History: (1) Shortness of breath (2) Weakness (3) Elevated troponin (4) Malnutrition (5) Abnormal LFTs (6) Incontinence associated dermatitis (7) Respiratory distress (8) CHF (congestive heart failure) (9) Hypoxia (10) NSTEMI (non-ST elevated myocardial infarction) (11) COVID-19 virus detected Review of Systems Review of Symptoms General ROS: no weight loss or fever Psychological ROS: no depression or mood changes, no memory loss Ophthalmic ROS: no visual changes or eye irritation ENT ROS: no nasal congestion, hearing loss, dizziness Allergy and Immunology ROS: no allergic symptoms or urticaria Hematological and Lymphatic ROS: no swollen glands, unusual bleeding or bruising Endocrine ROS: no polyuria, polydipsia, weight changes, temperature intolerance Respiratory ROS: no cough, shortness of breath, or wheezing Cardiovascular ROS: no chest pain or dyspnea on exertion Gastrointestinal ROS: denies abdominal pain, bright red blood in stool. Musculoskeletal ROS: no myalgias or arthralgias Neurological ROS: no TIA or stroke symptoms Dermatological ROS: no new or changing skin lesions, rashes or pruritis limited given medical condition Physical Exam Physical Exam General appearance: alert, cooperative, no distress, appears stated age Head: Normocephalic, without obvious abnormality, atraumatic Eyes: conjunctivae/corneas clear. PERRL, EOM's intact. Fundi benign Throat: Lips, mucosa, and tongue normal. Teeth and gums normal Neck: supple, symmetrical, trachea midline, no adenopathy, thyroid: not enlarged, symmetric, no tenderness/mass/nodules, no carotid bruit and no JVD Lungs: clear to auscultation bilaterally Heart: regular rate and rhythm, S1, S2 normal, no murmur, click, rub or gallop Abdomen: soft, non-tender. Bowel sounds normal. No masses, no organomegaly Extremities: extremities normal, atraumatic, no cyanosis or edema Pulses: 2+ and symmetric Skin: Skin color, texture, turgor normal. No rashes or lesions Neurologic: Grossly normal Last 24 Hour Vital Signs Date Time Temp Pulse Resp B/P (MAP) Pulse Ox O2 Delivery O2 Flow Rate FiO2 11/01/20 16:00 Bi-pap 11/01/20 16:00 98.7 64 26 131/47 (75) 99 11/01/20 16:00 54 11/01/20 12:01 50 11/01/20 12:00 50.0 11/01/20 12:00 98.3 50 18 124/47 (72) 100 11/01/20 12:00 Bi-pap 11/01/20 12:00 50 11/01/20 11:49 50 18 100 60 11/01/20 11:11 50.0 11/01/20 08:00 93.0 47 15 135/47 (76) 100 11/01/20 08:00 47 11/01/20 08:00 Bi-pap 11/01/20 06:52 60 27 98 60 11/01/20 06:45 98.0 98 18 145/69 98 Bi-pap 11/01/20 06:38 Bi-pap 11/01/20 04:53 91 20 98 Bi-Pap 50 88 20 97 50 11/01/20 04:50 92 20 Non-Rebreather 15.0 50 11/01/20 04:50 98.0 92 10 140/76 100 Bi-pap 11/01/20 04:41 107 29 97 50 11/01/20 04:18 99.0 88 24 177/90 (119) 99 Non-Rebreather 15.0 Laboratory Tests Test 11/01/20 04:54 11/01/20 05:04 11/01/20 05:05 11/01/20 05:15 White Blood Count 9.1 K/UL (4.8-10.8) Red Blood Count 3.75 M/UL (4.70-6.10) L Hemoglobin 12.7 G/DL (14.2-18.0) L Hematocrit 36.6 % (42.0-52.0) L Mean Corpuscular Volume 98 FL (80-99) Mean Corpuscular Hemoglobin 33.8 PG (27.0-31.0) H Mean Corpuscular Hemoglobin Concent 34.6 G/DL (32.0-36.0) Red Cell Distribution Width 15.4 % (11.6-14.8) H Platelet Count 274 K/UL (150-450) Mean Platelet Volume 7.5 FL (6.5-10.1) Neutrophils (%) (Auto) 78.3 % (45.0-75.0) H Lymphocytes (%) (Auto) 16.6 % (20.0-45.0) L Monocytes (%) (Auto) 4.2 % (1.0-10.0) Eosinophils (%) (Auto) 0.1 % (0.0-3.0) Basophils (%) (Auto) 0.8 % (0.0-2.0) Sodium Level 128 MMOL/L (136-145) L Potassium Level 5.4 MMOL/L (3.5-5.1) H Chloride Level 96 MMOL/L (98-107) L Carbon Dioxide Level 24 MMOL/L (21-32) Anion Gap 8 mmol/L (5-15) Blood Urea Nitrogen 37 mg/dL (7-18) H Creatinine 1.4 MG/DL (0.55-1.30) H Estimat Glomerular Filtration Rate 48.2 mL/min (>60) Glucose Level 213 MG/DL (74-106) H Lactic Acid Level 4.20 mmol/L (0.4-2.0) H Calcium Level 8.3 MG/DL (8.5-10.1) L Ferritin 589 NG/ML (8-388) H Total Bilirubin 0.7 MG/DL (0.2-1.0) Aspartate Amino Transf (AST/SGOT) 78 U/L (15-37) H Alanine Aminotransferase (ALT/SGPT) 59 U/L (12-78) Alkaline Phosphatase 23 U/L (46-116) L Lactate Dehydrogenase 293 U/L (81-234) H Total Creatine Kinase 49 U/L (26-308) Troponin I 0.060 ng/mL (0.000-0.056) C-Reactive Protein, Quantitative 2.3 mg/dL (0.00-0.90) H Pro-B-Type Natriuretic Peptide > 97937 pg/mL (0-125) H Total Protein 7.1 G/DL (6.4-8.2) Albumin 2.6 G/DL (3.4-5.0) L Globulin 4.5 g/dL Albumin/Globulin Ratio 0.6 (1.0-2.7) L Lipase 210 U/L (73-393) Arterial Blood pH 7.316 (7.350-7.450) Arterial Blood Partial Pressure CO2 35.1 mmHg (35.0-45.0) Arterial Blood Partial Pressure O2 107.3 mmHg (75.0-100.0) H Arterial Blood HCO3 17.5 mmol/L (22.0-26.0) *L Arterial Blood Oxygen Saturation 97.4 % (95-100) Arterial Blood Base Excess -7.8 (-2-2) L Basilio Test Positive Urine Color Yellow Urine Appearance Clear Urine pH 6.5 (4.5-8.0) Urine Specific [place] 1.015 (1.005-1.035) Urine Protein 3+ (NEGATIVE) H Urine Glucose (UA) Negative (NEGATIVE) Urine Ketones Negative (NEGATIVE) Urine Blood 2+ (NEGATIVE) H Urine Nitrite Positive (NEGATIVE) H Urine Bilirubin Negative (NEGATIVE) Urine Urobilinogen 1 MG/DL (0.0-1.0) H Urine Leukocyte Esterase 1+ (NEGATIVE) H Urine RBC 15-20 /HPF (0 - 0) H Urine WBC 5-10 /HPF (0 - 0) H Urine Squamous Epithelial Cells Few /LPF (NONE/OCC) Urine Bacteria Many /HPF (NONE) H Prothrombin Time 12.0 SEC (9.30-11.50) H Prothromb Time International Ratio 1.1 (0.9-1.1) Activated Partial Thromboplast Time 24 SEC (23-33) D-Dimer 3.19 mg/L FEU (0.00-0.49) H Test 11/01/20 06:25 11/01/20 13:10 11/01/20 14:24 11/01/20 16:34 Lactic Acid Level 3.40 mmol/L (0.66-2.22) H 1.40 mmol/L (0.4-2.0) Arterial Blood pH 7.409 (7.350-7.450) 7.394 (7.350-7.450) Arterial Blood Partial Pressure CO2 33.5 mmHg (35.0-45.0) L 31.3 mmHg (35.0-45.0) L Arterial Blood Partial Pressure O2 244.0 mmHg (75.0-100.0) H 120.0 mmHg (75.0-100.0) H Arterial Blood HCO3 20.7 mmol/L (22.0-26.0) L 18.7 mmol/L (22.0-26.0) L Arterial Blood Oxygen Saturation 98.6 % (95-100) 97.9 % (95-100) Arterial Blood Base Excess -3.2 (-2-2) L -5.2 (-2-2) L Basilio Test Positive Positive Microbiology Date/Time Source Procedure Growth Status 11/01/20 04:54 Nasopharynx SARS-CoV-2 RdRp Gene Assay - Final Complete Height (Feet): 5 Height (Inches): 6.00 Weight (Pounds): 145 Medications Current Medications Medications (Trade) Dose Ordered Sig/Lucille Route PRN Reason Start Time Stop Time Status Last Admin Dose Admin Acetaminophen (Tylenol) 650 mg Q4H PRN RECTAL Mild Pain (Pain Scale 1-3) 11/01/20 08:30 12/01/20 08:29 Acetaminophen (Tylenol) 650 mg Q6H PRN ORAL For Headache 11/01/20 08:30 12/01/20 08:29 Amiodarone HCl (Cordarone) 200 mg DAILY ORAL 11/01/20 09:00 01/30/21 08:59 Ceftriaxone Sodium 1 gm/ Dextrose 55 ml @ 110 mls/hr Q24H IVPB 11/01/20 09:00 11/08/20 08:59 11/01/20 09:35 Clonidine HCl (Catapres Tab) 0.1 mg Q4H PRN ORAL SBP above 150 11/01/20 08:30 01/30/21 08:29 Dexamethasone Sodium Phosphate (Decadron 10mg/ ml Inj) 6 mg DAILY IV 11/02/20 09:00 11/10/20 09:01 Enoxaparin Sodium (Lovenox) 60 mg DAILY SUBQ 11/01/20 09:00 01/30/21 08:59 11/01/20 09:35 Ivermectin (StromectoL) 12 mg Q48H ORAL 11/01/20 15:00 11/03/20 16:00 Metoprolol Tartrate (Lopressor) 12.5 mg Q12HR ORAL 11/01/20 09:00 01/30/21 08:59 Pantoprazole (Protonix) 40 mg ACBREAKFAST ORAL 11/01/20 09:00 12/01/20 08:59 Sodium Chloride 1,000 ml @ 75 mls/hr [id number] IV 11/01/20 08:30 12/01/20 08:29 11/01/20 09:33 Assessment/Plan Problem List: (1) Respiratory distress ICD Codes: R06.03 - Acute respiratory distress SNOMED: 240222314 (2) CHF (congestive heart failure) ICD Codes: I50.9 - Heart failure, unspecified SNOMED: 37375734 Qualifiers: Qualified Codes: I50.9 - Heart failure, unspecified (3) Hypoxia ICD Codes: R09.02 - Hypoxemia SNOMED: 399502469 (4) NSTEMI (non-ST elevated myocardial infarction) ICD Codes: I21.4 - Non-ST elevation (NSTEMI) myocardial infarction SNOMED: 35818537 (5) COVID-19 virus detected ICD Codes: U07.1 - COVID-19 SNOMED: 9591245607260990 (6) Shortness of breath ICD Codes: R06.02 - Shortness of breath SNOMED: 154794750 (7) Malnutrition ICD Codes: E46 - Unspecified protein-calorie malnutrition SNOMED: 97021526 (8) Weakness ICD Codes: R53.1 - Weakness SNOMED: 15739213, 716287561, 140173616 (9) Elevated troponin ICD Codes: R77.8 - Other specified abnormalities of plasma proteins SNOMED: 281797528, 916127989, 311535324 (10) Abnormal LFTs ICD Codes: R94.5 - Abnormal results of liver function studies SNOMED: 940900236 (11) Incontinence associated dermatitis Assessment & Plan: Malnutrition Assessment & Plan: DAILY ESTIMATED NEEDS: Needs based on underweight, pulmonary 51kg 30-35 kcals/kg 0501-0642 total kcals 1.25-1.5 g protein/kg 64-77 g total protein Fluid per MD On lasix NUTRITION DIAGNOSIS: Increased kcal and pro needs r/t underweight status as evidenced by pt w/ BMI underweight per guidelines, 79% of [place] Body Weight, w/ sacral redness. 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 Liver: The liver is normal in size and echogenicity. No focal abnormalities are noted. Gallbladder: The gallbladder is normal. No stones are visualized. The wall is not thickened. Is no sonographic Galvan sign. Common bile duct: Normal in size. Pancreas: The visualized portion of pancreas is normal in echogenicity. There are no masses. Kidneys: The kidneys are normal in size and demonstrate cortical thinning. There is fullness of the right collecting system. There is a 2.2 cm parapelvic right renal cyst. There is a subcentimeter right midpole cyst. Prostate is within normal limits in volume. There is mild post void residual volume of 65 mL. Spleen: The spleen is normal in size and echogenicity. Additional findings: Images aorta is unremarkable. There is a large right pleural effusion. There is a large left pleural effusion. IMPRESSION: 1. Mildly atrophic kidneys. 2. Fullness of the right collecting system without sonographic evidence of obstructive process. 3. Mild post void residual volume of 65 mL. 4. Large bilateral pleural effusions. 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 loose bm soilage. patient not able to always states when. wash daily with NS. apply skin protectant turn q2h off load pressure monitor for incontinence and care appropriately thank you ICD Codes: L25.8 - Unspecified contact dermatitis due to other agents; R32 - Unspecified urinary incontinence SNOMED: 526759373 [email or web address] Nov 01, 2020 18:26
[2020-11-02] VITALS (8 sets, daily range): BP systolic 85–181; BP diastolic 51–99
[2020-11-02] MEDS: LORazepam Inj 2mg/ml 1ml IV PRN ×2 (04:35→22:01)
[2020-11-02 06:10] LABS: HEMATOCRIT 33.3 % (42.0-52.0); HEMOGLOBIN 11.1 G/DL (14.2-18.0); MEAN CORPUSCULAR VOLUME 105 FL (80-99); PLATELET COUNT 286 K/UL (150-450); RED BLOOD COUNT 3.18 M/UL (4.70-6.10); RED CELL DISTRIBUTION WIDTH 13.7 % (11.6-14.8); WHITE BLOOD COUNT 7.8 K/UL (4.8-10.8)
[2020-11-02 06:55] LABS: ALANINE AMINOTRANSFERASE 324 U/L (12-78); ALBUMIN/GLOBULIN RATIO 0.6 (1.0-2.7); ALKALINE PHOSPHATASE 21 U/L (46-116); ANION GAP 6 mmol/L (5-15); ASPARTATE AMINO TRANSFERASE 271 U/L (15-37); BILIRUBIN,TOTAL 0.6 MG/DL (0.2-1.0); BLOOD UREA NITROGEN 44 mg/dL (7-18); CALCIUM 7.3 MG/DL (8.5-10.1); CARBON DIOXIDE 24 MMOL/L (21-32); CHLORIDE 104 MMOL/L (98-107); CREATININE 1.1 MG/DL (0.55-1.30); POTASSIUM 4.5 MMOL/L (3.5-5.1); SODIUM 134 MMOL/L (136-145)
[2020-11-02] MEDS: dexAMETHasone 10mg/ml Inj IV SCH (08:50)
[2020-11-02] MEDS: cefTRIAXone 1 GM in D5W 55 ML IVPB SCH (08:51)
[2020-11-02] MEDS: Metoprolol Tartrate 12.5mg TAB ORAL SCH ×3 (08:51→22:02)
[2020-11-02] MEDS: Amiodarone 200mg tab ORAL SCH (08:51)
[2020-11-02] MEDS: Enoxaparin 60mg Inj SUBQ SCH (08:52)
--- NOTE | 2020-11-02 13:30 | Pulmonology Progress Note ---
Subjective Interval Events: Transitioned off BiPAP; still requiring high FiO2 Constitutional: Reports: no symptoms HEENT: Repors: no symptoms Respiratory: Reports: no symptoms Cardiovascular: Reports: no symptoms Gastrointestinal/Abdominal: Reports: no symptoms Allergies: Coded Allergies: No Known Allergies (Unverified , 09/16/20) Objective Last 24 Hour Vital Signs Date Time Temp Pulse Resp B/P (MAP) Pulse Ox O2 Delivery O2 Flow Rate FiO2 11/02/20 12:31 142 25 100 50 11/02/20 12:00 59 11/02/20 08:51 56 145/51 11/02/20 08:25 100 Nasal Cannula 3.0 32 11/02/20 08:00 61 11/02/20 08:00 97.0 56 22 145/51 (82) 100 56 11/02/20 05:05 105 22 146/80 99 11/02/20 04:35 121 41 85/59 78 11/02/20 04:00 121 11/02/20 04:00 4.0 11/02/20 04:00 Nasal Cannula 4.0 11/02/20 04:00 97.7 105 22 146/80 (102) 95 11/02/20 02:00 157 41 85/59 (68) 78 11/02/20 01:00 63 145/99 (114) 100 11/02/20 00:00 Bi-pap 11/02/20 00:00 98.4 141 140/95 (110) 92 11/02/20 00:00 54 11/01/20 23:00 61 26 124/58 (80) 100 11/01/20 22:00 59 23 140/68 (92) 100 11/01/20 21:00 61 22 134/77 (96) 100 11/01/20 20:55 92 143/81 11/01/20 20:00 50 11/01/20 20:00 98.8 58 24 141/46 (77) 100 11/01/20 20:00 52 11/01/20 20:00 Bi-pap 11/01/20 19:22 100 Nasal Cannula 4.0 36 11/01/20 19:00 54 24 129/43 (71) 100 11/01/20 16:00 Bi-pap 11/01/20 16:00 98.7 64 26 131/47 (75) 99 11/01/20 16:00 54 Intake and Output 11/01/20 11/02/20 19:00 07:00 Intake Total 750 ml 750 ml Output Total 175 ml 450 ml Balance 575 ml 300 ml Intake IV Total 750 ml 750 ml Output Urine Total 175 ml 450 ml # Bowel Movements 1 General Appearance: no acute distress HEENT: normocephalic Respiratory: chest wall non-tender, decreased breath sounds Cardiovascular: normal peripheral pulses Abdomen: normal bowel sounds Extremities: no cyanosis Microbiology Date/Time Source Procedure Growth Status 11/01/20 05:05 Urine,Clean Catch Urine Culture - Final Escherichia Coli Complete 11/01/20 04:54 Nasopharynx SARS-CoV-2 RdRp Gene Assay - Final Complete 11/01/20 04:45 Nasal Nares MRSA Culture - Final NO METHICILLIN RESISTANT STAPH AUREUS... Complete 11/01/20 04:45 Blood Blood Culture - Preliminary NO GROWTH AFTER 24 HOURS Resulted 11/01/20 04:45 Blood Blood Culture - Preliminary NO GROWTH AFTER 24 HOURS Resulted Laboratory Tests 11/01/20 14:24: Arterial Blood pH 7.409, Arterial Blood Partial Pressure CO2 33.5L, Arterial Blood Partial Pressure O2 244.0H, Arterial Blood HCO3 20.7L, Arterial Blood Oxygen Saturation 98.6, Arterial Blood Base Excess -3.2L, Basilio Test Positive 11/01/20 16:34: Arterial Blood pH 7.394, Arterial Blood Partial Pressure CO2 31.3L, Arterial Blood Partial Pressure O2 120.0H, Arterial Blood HCO3 18.7L, Arterial Blood Oxygen Saturation 97.9, Arterial Blood Base Excess -5.2L, Basilio Test Positive 11/02/20 05:15: White Blood Count 7.8, Red Blood Count 3.18L, Hemoglobin 11.1L, Hematocrit 33.3L , Mean Corpuscular Volume 105H, Mean Corpuscular Hemoglobin 34.8H, Mean Corpuscular Hemoglobin Concent 33.2, Red Cell Distribution Width 13.7, Platelet Count 286, Mean Platelet Volume 8.1, Neutrophils (%) (Auto) , Lymphocytes (%) (Auto) , Monocytes (%) (Auto) , Eosinophils (%) (Auto) , Basophils (%) (Auto) , Differential Total Cells Counted 100, Neutrophils % (Manual) 89H, Lymphocytes % (Manual) 7L, Monocytes % (Manual) 4, Eosinophils % (Manual) 0, Basophils % (Manual) 0, Band Neutrophils 0, Platelet Estimate Adequate, Platelet Morphology Normal, Macrocytosis 1+, Schistocytes Rare, Sodium Level 134L, Potassium Level 4.5, Chloride Level 104, Carbon Dioxide Level 24, Anion Gap 6, Blood Urea Nitrogen 44H, Creatinine 1.1, Estimat Glomerular Filtration Rate > 60, Glucose Level 136H, Lactic Acid Level 1.80, Calcium Level 7.3L, Total Bilirubin 0.6, Aspartate Amino Transf (AST/SGOT) 271H, Alanine Aminotransferase (ALT/SGPT) 324H , Alkaline Phosphatase 21L, Troponin I 0.063H, Total Protein 5.6L, Albumin 2.0L, Globulin 3.6, Albumin/Globulin Ratio 0.6L Current Medications Medications (Trade) Dose Ordered Sig/Lucille Route PRN Reason Start Time Stop Time Status Last Admin Dose Admin Acetaminophen (Tylenol) 650 mg Q4H PRN RECTAL Mild Pain (Pain Scale 1-3) 11/01/20 08:30 12/01/20 08:29 Acetaminophen (Tylenol) 650 mg Q6H PRN ORAL For Headache 11/01/20 08:30 12/01/20 08:29 Amiodarone HCl (Cordarone) 200 mg DAILY ORAL 11/01/20 09:00 01/30/21 08:59 11/02/20 08:51 Ceftriaxone Sodium 1 gm/ Dextrose 55 ml @ 110 mls/hr Q24H IVPB 11/01/20 09:00 11/08/20 08:59 11/02/20 08:51 Clonidine HCl (Catapres Tab) 0.1 mg Q4H PRN ORAL SBP above 150 11/01/20 08:30 01/30/21 08:29 Dexamethasone Sodium Phosphate (Decadron 10mg/ ml Inj) 6 mg DAILY IV 11/02/20 09:00 11/10/20 09:01 11/02/20 08:50 Enoxaparin Sodium (Lovenox) 60 mg DAILY SUBQ 11/01/20 09:00 01/30/21 08:59 11/02/20 08:52 Ivermectin (StromectoL) 12 mg Q48H ORAL 11/01/20 15:00 11/03/20 16:00 Lorazepam (Ativan 2mg/ml 1ml) 1 mg Q4H PRN IV For Anxiety 11/02/20 00:15 11/09/20 00:14 11/02/20 04:35 Metoprolol Tartrate (Lopressor) 12.5 mg Q12HR ORAL 11/01/20 09:00 01/30/21 08:59 11/01/20 20:55 Pantoprazole (Protonix) 40 mg ACBREAKFAST ORAL 11/01/20 09:00 12/01/20 08:59 11/02/20 06:07 Sodium Chloride 1,000 ml @ 75 mls/hr [id number] IV 11/01/20 08:30 12/01/20 08:29 11/02/20 08:53 Assessment/Plan Assessment/Plan IMPRESSION: 1. COVID-19 pneumonia. 2. Pulmonary edema. 3. History of CHF. 4. Multi-infarct dementia. 5. Hypertension. DISCUSSION: Agree with antibiotics. Agree with Decadron. Agree with Lovenox. Continue BiPAP for now. Will transition to nasal O2/supplemental oxygen. Will dc fluids Will diurese Check labs in AM Matt Haskins Omar Syed MD Nov 02, 2020 13:30
--- NOTE | 2020-11-02 14:06 | Surgery Progress Note ---
Surgery Progress Note Subjective Additional Comments c/o abd pain states feels nausea no emesis passing flatus Objective Last 24 Hour Vital Signs Date Time Temp Pulse Resp B/P (MAP) Pulse Ox O2 Delivery O2 Flow Rate FiO2 11/02/20 12:31 142 25 100 50 11/02/20 12:00 59 11/02/20 08:51 56 145/51 11/02/20 08:25 100 Nasal Cannula 3.0 32 11/02/20 08:00 61 11/02/20 08:00 97.0 56 22 145/51 (82) 100 56 11/02/20 05:05 105 22 146/80 99 11/02/20 04:35 121 41 85/59 78 11/02/20 04:00 121 11/02/20 04:00 4.0 11/02/20 04:00 Nasal Cannula 4.0 11/02/20 04:00 97.7 105 22 146/80 (102) 95 11/02/20 02:00 157 41 85/59 (68) 78 11/02/20 01:00 63 145/99 (114) 100 11/02/20 00:00 Bi-pap 11/02/20 00:00 98.4 141 140/95 (110) 92 11/02/20 00:00 54 11/01/20 23:00 61 26 124/58 (80) 100 11/01/20 22:00 59 23 140/68 (92) 100 11/01/20 21:00 61 22 134/77 (96) 100 11/01/20 20:55 92 143/81 11/01/20 20:00 50 11/01/20 20:00 98.8 58 24 141/46 (77) 100 11/01/20 20:00 52 11/01/20 20:00 Bi-pap 11/01/20 19:22 100 Nasal Cannula 4.0 36 11/01/20 19:00 54 24 129/43 (71) 100 11/01/20 16:00 Bi-pap 11/01/20 16:00 98.7 64 26 131/47 (75) 99 11/01/20 16:00 54 I&O Intake and Output 11/01/20 11/02/20 19:00 07:00 Intake Total 750 ml 750 ml Output Total 175 ml 450 ml Balance 575 ml 300 ml Intake IV Total 750 ml 750 ml Output Urine Total 175 ml 450 ml # Bowel Movements 1 Cardiovascular: RSR Respiratory: decreased breath sounds Abdomen: soft, non-tender, present bowel sounds, non-distended Extremities: no edema, no tenderness, no cyanosis Laboratory Tests Test 11/01/20 14:24 11/01/20 16:34 11/02/20 05:15 Arterial Blood pH 7.409 (7.350-7.450) 7.394 (7.350-7.450) Arterial Blood Partial Pressure CO2 33.5 mmHg (35.0-45.0) L 31.3 mmHg (35.0-45.0) L Arterial Blood Partial Pressure O2 244.0 mmHg (75.0-100.0) H 120.0 mmHg (75.0-100.0) H Arterial Blood HCO3 20.7 mmol/L (22.0-26.0) L 18.7 mmol/L (22.0-26.0) L Arterial Blood Oxygen Saturation 98.6 % (95-100) 97.9 % (95-100) Arterial Blood Base Excess -3.2 (-2-2) L -5.2 (-2-2) L Basilio Test Positive Positive White Blood Count 7.8 K/UL (4.8-10.8) Red Blood Count 3.18 M/UL (4.70-6.10) L Hemoglobin 11.1 G/DL (14.2-18.0) L Hematocrit 33.3 % (42.0-52.0) L Mean Corpuscular Volume 105 FL (80-99) H Mean Corpuscular Hemoglobin 34.8 PG (27.0-31.0) H Mean Corpuscular Hemoglobin Concent 33.2 G/DL (32.0-36.0) Red Cell Distribution Width 13.7 % (11.6-14.8) Platelet Count 286 K/UL (150-450) Mean Platelet Volume 8.1 FL (6.5-10.1) Neutrophils (%) (Auto) % (45.0-75.0) Lymphocytes (%) (Auto) % (20.0-45.0) Monocytes (%) (Auto) % (1.0-10.0) Eosinophils (%) (Auto) % (0.0-3.0) Basophils (%) (Auto) % (0.0-2.0) Differential Total Cells Counted 100 Neutrophils % (Manual) 89 % (45-75) H Lymphocytes % (Manual) 7 % (20-45) L Monocytes % (Manual) 4 % (1-10) Eosinophils % (Manual) 0 % (0-3) Basophils % (Manual) 0 % (0-2) Band Neutrophils 0 % (0-8) Platelet Estimate Adequate Platelet Morphology Normal Macrocytosis 1+ Schistocytes Rare Sodium Level 134 MMOL/L (136-145) L Potassium Level 4.5 MMOL/L (3.5-5.1) Chloride Level 104 MMOL/L (98-107) Carbon Dioxide Level 24 MMOL/L (21-32) Anion Gap 6 mmol/L (5-15) Blood Urea Nitrogen 44 mg/dL (7-18) H Creatinine 1.1 MG/DL (0.55-1.30) Estimat Glomerular Filtration Rate > 60 mL/min (>60) Glucose Level 136 MG/DL (74-106) H Lactic Acid Level 1.80 mmol/L (0.4-2.0) Calcium Level 7.3 MG/DL (8.5-10.1) L Total Bilirubin 0.6 MG/DL (0.2-1.0) Aspartate Amino Transf (AST/SGOT) 271 U/L (15-37) H Alanine Aminotransferase (ALT/SGPT) 324 U/L (12-78) H Alkaline Phosphatase 21 U/L (46-116) L Troponin I 0.063 ng/mL (0.000-0.056) Total Protein 5.6 G/DL (6.4-8.2) L Albumin 2.0 G/DL (3.4-5.0) L Globulin 3.6 g/dL Albumin/Globulin Ratio 0.6 (1.0-2.7) L Plan Problems: (1) Respiratory distress (2) CHF (congestive heart failure) (3) Hypoxia (4) NSTEMI (non-ST elevated myocardial infarction) (5) COVID-19 virus detected (6) Shortness of breath (7) Malnutrition (8) Weakness (9) Elevated troponin (10) Abnormal LFTs (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 CURRENT DIET: Cardiac ms ground PO DIET RECOMMENDATIONS: Low Na diet/ texture per [employer]NA[employer] ADDITIONAL RECOMMENDATIONS: 1) Add Ensure Enlive BID w/ meals (350 kcal, 20g pro each) 2) Add snacks as tolerated in b/w meals 3) Replete lytes as needed (Low K 3.3) 4) maintain daily calibrated bed scale wts BMI now underweight 5) Consider Kcal count to evaluate po intake (7) Abnormal LFTs Assessment & Plan: elevated t bili ast/alt okay US ordered trend labs cont fluids will follow with resc. Liver: The liver is normal in size and echogenicity. No focal abnormalities are noted. Gallbladder: The gallbladder is normal. No stones are visualized. The wall is not thickened. Is no sonographic Galvan sign. Common bile duct: Normal in size. Pancreas: The visualized portion of pancreas is normal in echogenicity. There are no masses. Kidneys: The kidneys are normal in size and demonstrate cortical thinning. There is fullness of the right collecting system. There is a 2.2 cm parapelvic right renal cyst. There is a subcentimeter right midpole cyst. Prostate is within normal limits in volume. There is mild post void residual volume of 65 mL. Spleen: The spleen is normal in size and echogenicity. Additional findings: Images aorta is unremarkable. There is a large right pleural effusion. There is a large left pleural effusion. IMPRESSION: 1. Mildly atrophic kidneys. 2. Fullness of the right collecting system without sonographic evidence of obstructive process. 3. Mild post void residual volume of 65 mL. 4. Large bilateral pleural effusions. 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 loose bm soilage. patient not able to always states when. wash daily with NS. apply skin protectant turn q2h off load pressure monitor for incontinence and care appropriately thank you Mo Siegel Nov 02, 2020 14:06
--- NOTE | 2020-11-02 14:39 | Infectious Diseases Prog Note ---
Assessment/Plan Assessment/Plan A: 1. COVID-19 pneumonia. 2. Congestive heart failure. 3. Coronary artery disease. 4. Atrial fibrillation. 5. Dementia. 6. Hypoxemia 7. E.coli UTI PLAN: 1. Continue dexamethasone day #2 2. Got a dose of ivermectin 3. Continue isolation. 4. Start on Rocephin Subjective ROS Limited/Unobtainable: Yes Constitutional: Denies: fever Neurologic: Reports: confusion, other - on restraint Allergies: Coded Allergies: No Known Allergies (Unverified , 09/16/20) Objective Last 24 Hour Vital Signs Date Time Temp Pulse Resp B/P (MAP) Pulse Ox O2 Delivery O2 Flow Rate FiO2 11/02/20 12:31 142 25 100 50 11/02/20 12:00 Bi-pap 11/02/20 12:00 97.2 115 20 142/92 (109) 100 115 11/02/20 12:00 59 11/02/20 12:00 50 11/02/20 08:51 56 145/51 11/02/20 08:25 100 Nasal Cannula 3.0 32 11/02/20 08:00 Nasal Cannula 4.0 11/02/20 08:00 4.0 11/02/20 08:00 61 11/02/20 08:00 97.0 56 22 145/51 (82) 100 56 11/02/20 05:05 105 22 146/80 99 11/02/20 04:35 121 41 85/59 78 11/02/20 04:00 121 11/02/20 04:00 4.0 11/02/20 04:00 Nasal Cannula 4.0 11/02/20 04:00 97.7 105 22 146/80 (102) 95 11/02/20 02:00 157 41 85/59 (68) 78 11/02/20 01:00 63 145/99 (114) 100 11/02/20 00:00 Bi-pap 11/02/20 00:00 98.4 141 140/95 (110) 92 11/02/20 00:00 54 11/01/20 23:00 61 26 124/58 (80) 100 11/01/20 22:00 59 23 140/68 (92) 100 11/01/20 21:00 61 22 134/77 (96) 100 12/30/20 20:55 92 143/81 11/01/20 20:00 50 11/01/20 20:00 98.8 58 24 141/46 (77) 100 11/01/20 20:00 52 11/01/20 20:00 Bi-pap 11/01/20 19:22 100 Nasal Cannula 4.0 36 11/01/20 19:00 54 24 129/43 (71) 100 11/01/20 16:00 Bi-pap 11/01/20 16:00 98.7 64 26 131/47 (75) 99 11/01/20 16:00 54 Height (Feet): 5 Height (Inches): 6.00 Weight (Pounds): 145 HEENT: mucous membranes moist Respiratory/Chest: decreased breath sounds, other - on BIPAP Cardiovascular: bradycardia Abdomen: soft, non tender Extremities: no edema Neurologic/Psychiatric: alert, responsive Microbiology Date/Time Source Procedure Growth Status 11/01/20 05:05 Urine,Clean Catch Urine Culture - Final Escherichia Coli Complete 11/01/20 04:54 Nasopharynx SARS-CoV-2 RdRp Gene Assay - Final Complete 11/01/20 04:45 Nasal Nares MRSA Culture - Final NO METHICILLIN RESISTANT STAPH AUREUS... Complete 11/01/20 04:45 Blood Blood Culture - Preliminary NO GROWTH AFTER 24 HOURS Resulted 11/01/20 04:45 Blood Blood Culture - Preliminary NO GROWTH AFTER 24 HOURS Resulted Laboratory Tests Test 11/01/20 16:34 11/02/20 05:15 Arterial Blood pH 7.394 (7.350-7.450) Arterial Blood Partial Pressure CO2 31.3 mmHg (35.0-45.0) L Arterial Blood Partial Pressure O2 120.0 mmHg (75.0-100.0) H Arterial Blood HCO3 18.7 mmol/L (22.0-26.0) L Arterial Blood Oxygen Saturation 97.9 % (95-100) Arterial Blood Base Excess -5.2 (-2-2) L Basilio Test Positive White Blood Count 7.8 K/UL (4.8-10.8) Red Blood Count 3.18 M/UL (4.70-6.10) L Hemoglobin 11.1 G/DL (14.2-18.0) L Hematocrit 33.3 % (42.0-52.0) L Mean Corpuscular Volume 105 FL (80-99) H Mean Corpuscular Hemoglobin 34.8 PG (27.0-31.0) H Mean Corpuscular Hemoglobin Concent 33.2 G/DL (32.0-36.0) Red Cell Distribution Width 13.7 % (11.6-14.8) Platelet Count 286 K/UL (150-450) Mean Platelet Volume 8.1 FL (6.5-10.1) Neutrophils (%) (Auto) % (45.0-75.0) Lymphocytes (%) (Auto) % (20.0-45.0) Monocytes (%) (Auto) % (1.0-10.0) Eosinophils (%) (Auto) % (0.0-3.0) Basophils (%) (Auto) % (0.0-2.0) Differential Total Cells Counted 100 Neutrophils % (Manual) 89 % (45-75) H Lymphocytes % (Manual) 7 % (20-45) L Monocytes % (Manual) 4 % (1-10) Eosinophils % (Manual) 0 % (0-3) Basophils % (Manual) 0 % (0-2) Band Neutrophils 0 % (0-8) Platelet Estimate Adequate Platelet Morphology Normal Macrocytosis 1+ Schistocytes Rare Sodium Level 134 MMOL/L (136-145) L Potassium Level 4.5 MMOL/L (3.5-5.1) Chloride Level 104 MMOL/L (98-107) Carbon Dioxide Level 24 MMOL/L (21-32) Anion Gap 6 mmol/L (5-15) Blood Urea Nitrogen 44 mg/dL (7-18) H Creatinine 1.1 MG/DL (0.55-1.30) Estimat Glomerular Filtration Rate > 60 mL/min (>60) Glucose Level 136 MG/DL (74-106) H Lactic Acid Level 1.80 mmol/L (0.4-2.0) Calcium Level 7.3 MG/DL (8.5-10.1) L Total Bilirubin 0.6 MG/DL (0.2-1.0) Aspartate Amino Transf (AST/SGOT) 271 U/L (15-37) H Alanine Aminotransferase (ALT/SGPT) 324 U/L (12-78) H Alkaline Phosphatase 21 U/L (46-116) L Troponin I 0.063 ng/mL (0.000-0.056) Total Protein 5.6 G/DL (6.4-8.2) L Albumin 2.0 G/DL (3.4-5.0) L Globulin 3.6 g/dL Albumin/Globulin Ratio 0.6 (1.0-2.7) L Current Medications Medications (Trade) Dose Ordered Sig/Lucille Route PRN Reason Start Time Stop Time Status Last Admin Dose Admin Acetaminophen (Tylenol) 650 mg Q4H PRN RECTAL Mild Pain (Pain Scale 1-3) 11/01/20 08:30 12/01/20 08:29 Acetaminophen (Tylenol) 650 mg Q6H PRN ORAL For Headache 11/01/20 08:30 12/01/20 08:29 Amiodarone HCl (Cordarone) 200 mg DAILY ORAL 11/01/20 09:00 01/30/21 08:59 11/02/20 08:51 Ceftriaxone Sodium 1 gm/ Dextrose 55 ml @ 110 mls/hr Q24H IVPB 11/01/20 09:00 11/08/20 08:59 11/02/20 08:51 Clonidine HCl (Catapres Tab) 0.1 mg Q4H PRN ORAL SBP above 150 11/01/20 08:30 01/30/21 08:29 Dexamethasone Sodium Phosphate (Decadron 10mg/ ml Inj) 6 mg DAILY IV 11/02/20 09:00 11/10/20 09:01 11/02/20 08:50 Enoxaparin Sodium (Lovenox) 60 mg DAILY SUBQ 11/01/20 09:00 01/30/21 08:59 11/02/20 08:52 Furosemide (Lasix) 40 mg EVERY 12 HOURS IV 11/02/20 13:30 12/02/20 13:29 11/02/20 13:47 Ivermectin (StromectoL) 12 mg Q48H ORAL 11/02/20 22:00 01/31/21 21:59 Lorazepam (Ativan 2mg/ml 1ml) 1 mg Q4H PRN IV For Anxiety 11/02/20 00:15 11/09/20 00:14 11/02/20 04:35 Metoprolol Tartrate (Lopressor) 12.5 mg Q12HR ORAL 11/01/20 09:00 01/30/21 08:59 11/01/20 20:55 Pantoprazole (Protonix) 40 mg ACBREAKFAST ORAL 11/01/20 09:00 12/01/20 08:59 11/02/20 06:07 Silvio Medrano MD Nov 02, 2020 14:39
[2020-11-02] MEDS ORDERED: AMIODARONE HCL200 MG ORAL (14:56)
[2020-11-02] MEDS ORDERED: ARTIFICIAL TEAR15 ML BOTH EYES (14:56)
[2020-11-02] MEDS ORDERED: ACETAMINOPHEN325 M1 ORAL (15:12)
[2020-11-02] MEDS ORDERED: MELATONIN3 MG ORAL (15:12)
[2020-11-02] MEDS ORDERED: DULCOLAX10 MG RC (15:12)
[2020-11-02] MEDS ORDERED: PRO-STAT LIQUID30 ML ORAL (15:12)
[2020-11-02] MEDS ORDERED: VITAMIN C500 M1 ORAL (15:12)
[2020-11-02] MEDS ORDERED: FERROUS SULFAT325 MG ORAL (15:12)
--- NOTE | 2020-11-02 16:02 | General Progress Note ---
Subjective ROS Limited/Unobtainable: No Constitutional: Reports: malaise, weakness HEENT: Reports: no symptoms Cardiovascular: Reports: no symptoms Respiratory: Reports: cough, shortness of breath Gastrointestinal/Abdominal: Reports: no symptoms Genitourinary: Reports: no symptoms Neurologic/Psychiatric: Reports: anxiety Endocrine: Reports: no symptoms Hematologic/Lymphatic: Reports: no symptoms Allergies: Coded Allergies: No Known Allergies (Unverified , 09/16/20) All Systems: reviewed and negative except above Subjective d/w morning rn. no overnight events. transferred out of the icu. off bipap. sats stable on nasal cannula. calm and more cooperative Objective Last 24 Hour Vital Signs Date Time Temp Pulse Resp B/P (MAP) Pulse Ox O2 Delivery O2 Flow Rate FiO2 11/02/20 12:31 142 25 100 50 11/02/20 12:00 Bi-pap 11/02/20 12:00 97.2 115 20 142/92 (109) 100 115 11/02/20 12:00 59 11/02/20 12:00 50 11/02/20 08:51 56 145/51 11/02/20 08:25 100 Nasal Cannula 3.0 32 11/02/20 08:00 Nasal Cannula 4.0 11/02/20 08:00 4.0 11/02/20 08:00 61 11/02/20 08:00 97.0 56 22 145/51 (82) 100 56 11/02/20 05:05 105 22 146/80 99 11/02/20 04:35 121 41 85/59 78 11/02/20 04:00 121 11/02/20 04:00 4.0 11/02/20 04:00 Nasal Cannula 4.0 11/02/20 04:00 97.7 105 22 146/80 (102) 95 11/02/20 02:00 157 41 85/59 (68) 78 11/02/20 01:00 63 145/99 (114) 100 11/02/20 00:00 Bi-pap 11/02/20 00:00 98.4 141 140/95 (110) 92 11/02/20 00:00 54 11/01/20 23:00 61 26 124/58 (80) 100 11/01/20 22:00 59 23 140/68 (92) 100 12/30/20 21:00 61 22 134/77 (96) 100 11/01/20 20:55 92 143/81 11/01/20 20:00 50 11/01/20 20:00 98.8 58 24 141/46 (77) 100 11/01/20 20:00 52 11/01/20 20:00 Bi-pap 11/01/20 19:22 100 Nasal Cannula 4.0 36 11/01/20 19:00 54 24 129/43 (71) 100 11/01/20 16:00 Bi-pap 11/01/20 16:00 98.7 64 26 131/47 (75) 99 11/01/20 16:00 54 Intake and Output 11/01/20 11/02/20 19:00 07:00 Intake Total 750 ml 750 ml Output Total 175 ml 450 ml Balance 575 ml 300 ml Intake IV Total 750 ml 750 ml Output Urine Total 175 ml 450 ml # Bowel Movements 1 Laboratory Tests 11/01/20 16:34: Arterial Blood pH 7.394, Arterial Blood Partial Pressure CO2 31.3L, Arterial Blood Partial Pressure O2 120.0H, Arterial Blood HCO3 18.7L, Arterial Blood Oxygen Saturation 97.9, Arterial Blood Base Excess -5.2L, Basilio Test Positive 11/02/20 05:15: White Blood Count 7.8, Red Blood Count 3.18L, Hemoglobin 11.1L, Hematocrit 33.3L , Mean Corpuscular Volume 105H, Mean Corpuscular Hemoglobin 34.8H, Mean Corpuscular Hemoglobin Concent 33.2, Red Cell Distribution Width 13.7, Platelet Count 286, Mean Platelet Volume 8.1, Neutrophils (%) (Auto) , Lymphocytes (%) (Auto) , Monocytes (%) (Auto) , Eosinophils (%) (Auto) , Basophils (%) (Auto) , Differential Total Cells Counted 100, Neutrophils % (Manual) 89H, Lymphocytes % (Manual) 7L, Monocytes % (Manual) 4, Eosinophils % (Manual) 0, Basophils % (Manual) 0, Band Neutrophils 0, Platelet Estimate Adequate, Platelet Morphology Normal, Macrocytosis 1+, Schistocytes Rare, Sodium Level 134L, Potassium Level 4.5, Chloride Level 104, Carbon Dioxide Level 24, Anion Gap 6, Blood Urea Nitrogen 44H, Creatinine 1.1, Estimat Glomerular Filtration Rate > 60, Glucose Level 136H, Lactic Acid Level 1.80, Calcium Level 7.3L, Total Bilirubin 0.6, Aspartate Amino Transf (AST/SGOT) 271H, Alanine Aminotransferase (ALT/SGPT) 324H , Alkaline Phosphatase 21L, Troponin I 0.063H, Total Protein 5.6L, Albumin 2.0L, Globulin 3.6, Albumin/Globulin Ratio 0.6L Height (Feet): 5 Height (Inches): 6.00 Weight (Pounds): 145 General Appearance: WD/WN, alert EENT: normal ENT inspection Neck: normal alignment Cardiovascular: normal peripheral pulses Respiratory/Chest: chest wall non-tender, lungs clear, normal breath sounds Abdomen: normal bowel sounds, non tender, soft, no organomegaly Edema: no edema noted Arm (L), no edema noted Arm (R), no edema noted Leg (L), no edema noted Leg (R) Neurologic: alert, responsive Skin: normal pigmentation Assessment/Plan Problem List: (1) COVID-19 virus detected ICD Codes: U07.1 - COVID-19 SNOMED: 7697712890641763 (2) NSTEMI (non-ST elevated myocardial infarction) ICD Codes: I21.4 - Non-ST elevation (NSTEMI) myocardial infarction SNOMED: 26772643 (3) Hypoxia ICD Codes: R09.02 - Hypoxemia SNOMED: 619100788 (4) CHF (congestive heart failure) ICD Codes: I50.9 - Heart failure, unspecified SNOMED: 01705260 Qualifiers: Qualified Codes: I50.9 - Heart failure, unspecified (5) Respiratory distress ICD Codes: R06.03 - Acute respiratory distress SNOMED: 006251106 (6) Pneumonia due to COVID-19 virus ICD Codes: U07.1 - COVID-19; J12.89 - Other viral pneumonia SNOMED: 090553776305086468 (7) Shortness of breath ICD Codes: R06.02 - Shortness of breath SNOMED: 688953342 Status: stable, progressing Assessment/Plan: cont current rx iv steroids ivermectin per ID resp care o2 dvt/stress ulcer prophylaxis swallow eval monitor cxr and abg o2 as needed guarded Donnell Pedersen MD Nov 02, 2020 16:02
[2020-11-02] MEDS ORDERED: Varibar Honey 250ml MC PRN (16:15)
[2020-11-02] MEDS ORDERED: Varibar Thin Liquid powder 148gm MC PRN (16:15)
[2020-11-02] MEDS ORDERED: Varibar Nectar 240ml MC PRN (16:15)
[2020-11-02] MEDS ORDERED: Varibar Pudding 230ml MC PRN (16:15)
[2020-11-03] VITALS: BP 119/59
[2020-11-03 04:00] VITALS: BP 142/54
[2020-11-03 05:19] LABS: HEMATOCRIT 33.2 % (42.0-52.0); MEAN CORPUSCULAR VOLUME 104 FL (80-99); PLATELET COUNT 286 K/UL (150-450); WHITE BLOOD COUNT 6.7 K/UL (4.8-10.8)
[2020-11-03 06:22] LABS: BLOOD UREA NITROGEN 45 mg/dL (7-18); CALCIUM 7.5 MG/DL (8.5-10.1); CARBON DIOXIDE 26 MMOL/L (21-32)
[2020-11-03 08:00] VITALS: BP 138/72
[2020-11-03 08:33] LABS: CHLORIDE 104 MMOL/L (98-107); POTASSIUM 4.1 MMOL/L (3.5-5.1); SODIUM 136 MMOL/L (136-145)
[2020-11-03] MEDS: Metoprolol Tartrate 12.5mg TAB ORAL SCH ×2 (10:07→20:51)
[2020-11-03] MEDS: Amiodarone 200mg tab ORAL SCH (10:07)
[2020-11-03] MEDS: cefTRIAXone 1 GM in D5W 55 ML IVPB SCH (10:09)
[2020-11-03] MEDS: dexAMETHasone 10mg/ml Inj IV SCH (10:09)
[2020-11-03] MEDS: Enoxaparin 60mg Inj SUBQ SCH (10:10)
--- NOTE | 2020-11-03 10:24 | Diagnostic Imaging Report ---
EXAM: XR Chest, 1 View CLINICAL HISTORY: SOB TECHNIQUE: Frontal view of the chest. COMPARISON: Chest radiograph November 01, 2020 FINDINGS/IMPRESSION: Extensive bilateral airspace consolidations, consistent with multifocal infiltrate. Minimal improvement when compared to November 01, 2020. Follow-up chest radiograph recommended. Small bilateral pleural effusions, left greater right, unchanged. No pneumothorax. Cardiomegaly. Calcified aorta.
--- NOTE | 2020-11-03 10:26 | Diagnostic Imaging Report ---
EXAM: XR Abdomen, 2 Views CLINICAL HISTORY: ABD PAIN TECHNIQUE: Frontal view of the abdomen/pelvis with upright view of the abdomen. COMPARISON: No relevant prior studies available. FINDINGS/IMPRESSION: Nonobstructed bowel gas pattern. Bilateral pleural effusions. No free intraperitoneal air. Degenerative changes of the spine and hips. Consider correlation with CT of the abdomen and pelvis, if clinically indicated.
[2020-11-03 12:00] VITALS: BP 141/67
--- NOTE | 2020-11-03 12:10 | General Progress Note ---
Subjective ROS Limited/Unobtainable: No Constitutional: Reports: weakness Allergies: Coded Allergies: No Known Allergies (Unverified , 09/16/20) Subjective no change. remains on bipap. abg noted. no fevers or chills. cooperative with care. Objective Last 24 Hour Vital Signs Date Time Temp Pulse Resp B/P (MAP) Pulse Ox O2 Delivery O2 Flow Rate FiO2 11/03/20 10:07 78 138/72 11/03/20 08:00 50 11/03/20 08:00 96.9 75 20 138/72 (94) 95 11/03/20 08:00 Bi-pap 11/03/20 07:57 100 Bi-Pap 11/03/20 07:57 70 16 100 50 11/03/20 07:46 76 11/03/20 04:00 54 11/03/20 04:00 Bi-pap 11/03/20 04:00 50 11/03/20 04:00 96.8 50 20 142/54 (83) 100 11/03/20 03:50 57 22 100 50 11/03/20 00:00 Bi-pap 11/03/20 00:00 76 11/03/20 00:00 50 11/03/20 00:00 97.7 85 20 119/59 (79) 100 11/02/20 23:12 91 18 100 50 11/02/20 22:31 85 18 119/59 97 11/02/20 22:02 140 181/91 11/02/20 22:01 140 25 181/95 97 11/02/20 20:32 56 15 100 50 11/02/20 20:00 97.7 140 18 181/97 (125) 100 11/02/20 20:00 Bi-pap 11/02/20 20:00 50 11/02/20 20:00 100 Bi-Pap 11/02/20 20:00 106 11/02/20 16:00 74 11/02/20 16:00 Bi-pap 11/02/20 16:00 97.1 52 20 138/55 (82) 100 52 11/02/20 16:00 50 11/02/20 12:31 142 25 100 50 Intake and Output 11/02/20 11/03/20 19:00 07:00 Output Total 1500 ml 1700 ml Balance -1500 ml -1700 ml Output Urine Total 1500 ml 1700 ml Laboratory Tests 11/03/20 03:20: White Blood Count 6.7, Red Blood Count 3.20L, Hemoglobin 11.0L, Hematocrit 33.2L , Mean Corpuscular Volume 104H, Mean Corpuscular Hemoglobin 34.3H, Mean Corpuscular Hemoglobin Concent 33.0, Red Cell Distribution Width 14.0, Platelet Count 286, Mean Platelet Volume 7.3, Neutrophils (%) (Auto) , Lymphocytes (%) (Auto) , Monocytes (%) (Auto) , Eosinophils (%) (Auto) , Basophils (%) (Auto) , Differential Total Cells Counted 100, Neutrophils % (Manual) 76H, Lymphocytes % (Manual) 15L, Monocytes % (Manual) 7, Eosinophils % (Manual) 0, Basophils % (Manual) 0, Band Neutrophils 2, Platelet Estimate Adequate, Platelet Morphology Normal, Anisocytosis 1+, Sodium Level 136, Potassium Level 4.1, Chloride Level 104, Carbon Dioxide Level 26, Blood Urea Nitrogen 45H, Creatinine 1.0, Estimat Glomerular Filtration Rate > 60, Glucose Level 126H, Calcium Level 7.5L 11/03/20 08:38: Arterial Blood pH 7.384, Arterial Blood Partial Pressure CO2 41.2, Arterial Blood Partial Pressure O2 224.5H, Arterial Blood HCO3 24.0, Arterial Blood Oxygen Saturation 98.9, Arterial Blood Base Excess -1.0, Basilio Test Positive Height (Feet): 5 Height (Inches): 6.00 Weight (Pounds): 145 Objective General Appearance: WD/WN, alert EENT: normal ENT inspection Neck: normal alignment Cardiovascular: normal peripheral pulses Respiratory/Chest: chest wall non-tender, lungs clear, normal breath sounds Abdomen: normal bowel sounds, non tender, soft, no organomegaly Edema: no edema noted Arm (L), no edema noted Arm (R), no edema noted Leg (L), no edema noted Leg (R) Neurologic: alert, responsive Skin: normal pigmentation Assessment/Plan Problem List: (1) COVID-19 virus detected ICD Codes: U07.1 - COVID-19 SNOMED: 2485826291015669 (2) NSTEMI (non-ST elevated myocardial infarction) ICD Codes: I21.4 - Non-ST elevation (NSTEMI) myocardial infarction SNOMED: 63149362 (3) Hypoxia ICD Codes: R09.02 - Hypoxemia SNOMED: 085928011 (4) CHF (congestive heart failure) ICD Codes: I50.9 - Heart failure, unspecified SNOMED: 42442710 Qualifiers: Qualified Codes: I50.9 - Heart failure, unspecified (5) Respiratory distress ICD Codes: R06.03 - Acute respiratory distress SNOMED: 011814271 (6) Pneumonia due to COVID-19 virus ICD Codes: U07.1 - COVID-19; J12.89 - Other viral pneumonia SNOMED: 690292961495124643 (7) Shortness of breath ICD Codes: R06.02 - Shortness of breath SNOMED: 161120092 Status: stable, progressing Assessment/Plan: cont current rx iv steroids s/p ivermectin resp care o2 dvt/stress ulcer prophylaxis swallow eval monitor cxr and abg o2 as needed guarded Donnell Pedersen MD Nov 03, 2020 12:10
--- NOTE | 2020-11-03 12:30 | Pulmonology Progress Note ---
Subjective ROS Limited/Unobtainable: Yes Interval Events: back to BiPAP Constitutional: Denies: fever HEENT: Repors: no symptoms Respiratory: Reports: no symptoms Cardiovascular: Reports: no symptoms Gastrointestinal/Abdominal: Reports: no symptoms Allergies: Coded Allergies: No Known Allergies (Unverified , 09/16/20) All Systems: reviewed and negative except above Objective Last 24 Hour Vital Signs Date Time Temp Pulse Resp B/P (MAP) Pulse Ox O2 Delivery O2 Flow Rate FiO2 11/03/20 10:07 78 138/72 11/03/20 08:00 50 11/03/20 08:00 96.9 75 20 138/72 (94) 95 11/03/20 08:00 Bi-pap 11/03/20 07:57 100 Bi-Pap 11/03/20 07:57 70 16 100 50 11/03/20 07:46 76 11/03/20 04:00 54 11/03/20 04:00 Bi-pap 11/03/20 04:00 50 11/03/20 04:00 96.8 50 20 142/54 (83) 100 11/03/20 03:50 57 22 100 50 11/03/20 00:00 Bi-pap 11/03/20 00:00 76 11/03/20 00:00 50 11/03/20 00:00 97.7 85 20 119/59 (79) 100 11/02/20 23:12 91 18 100 50 11/02/20 22:31 85 18 119/59 97 11/02/20 22:02 140 181/91 11/02/20 22:01 140 25 181/95 97 11/02/20 20:32 56 15 100 50 11/02/20 20:00 97.7 140 18 181/97 (125) 100 11/02/20 20:00 Bi-pap 11/02/20 20:00 50 11/02/20 20:00 100 Bi-Pap 11/02/20 20:00 106 11/02/20 16:00 74 11/02/20 16:00 Bi-pap 11/02/20 16:00 97.1 52 20 138/55 (82) 100 52 11/02/20 16:00 50 11/02/20 12:31 142 25 100 50 Intake and Output 11/02/20 11/03/20 19:00 07:00 Output Total 1500 ml 1700 ml Balance -1500 ml -1700 ml Output Urine Total 1500 ml 1700 ml Objective back to BiPAP current setting 10/07 50% FiO2 General Appearance: no acute distress HEENT: normocephalic Respiratory: chest wall non-tender, decreased breath sounds Cardiovascular: normal peripheral pulses Abdomen: normal bowel sounds Extremities: no cyanosis Microbiology Date/Time Source Procedure Growth Status 11/01/20 05:05 Urine,Clean Catch Urine Culture - Final Escherichia Coli Complete 11/01/20 04:54 Nasopharynx SARS-CoV-2 RdRp Gene Assay - Final Complete 11/01/20 04:45 Rectum - Final NO CARBAPENEM-RESISTANT ENTEROBACTERI... Complete 11/01/20 04:45 Rectum VRE Culture - Final NO VANCOMYCIN RESISTANT ENTEROCOCCUS ... Complete 11/01/20 04:45 Nasal Nares MRSA Culture - Final NO METHICILLIN RESISTANT STAPH AUREUS... Complete 11/01/20 04:45 Blood Blood Culture - Preliminary NO GROWTH AFTER 24 HOURS Resulted 11/01/20 04:45 Blood Blood Culture - Preliminary NO GROWTH AFTER 24 HOURS Resulted Laboratory Tests 11/03/20 03:20: White Blood Count 6.7, Red Blood Count 3.20L, Hemoglobin 11.0L, Hematocrit 33.2L , Mean Corpuscular Volume 104H, Mean Corpuscular Hemoglobin 34.3H, Mean Corpuscular Hemoglobin Concent 33.0, Red Cell Distribution Width 14.0, Platelet Count 286, Mean Platelet Volume 7.3, Neutrophils (%) (Auto) , Lymphocytes (%) (Auto) , Monocytes (%) (Auto) , Eosinophils (%) (Auto) , Basophils (%) (Auto) , Differential Total Cells Counted 100, Neutrophils % (Manual) 76H, Lymphocytes % (Manual) 15L, Monocytes % (Manual) 7, Eosinophils % (Manual) 0, Basophils % (Manual) 0, Band Neutrophils 2, Platelet Estimate Adequate, Platelet Morphology Normal, Anisocytosis 1+, Sodium Level 136, Potassium Level 4.1, Chloride Level 104, Carbon Dioxide Level 26, Blood Urea Nitrogen 45H, Creatinine 1.0, Estimat Glomerular Filtration Rate > 60, Glucose Level 126H, Calcium Level 7.5L 11/03/20 08:38: Arterial Blood pH 7.384, Arterial Blood Partial Pressure CO2 41.2, Arterial Blood Partial Pressure O2 224.5H, Arterial Blood HCO3 24.0, Arterial Blood Oxygen Saturation 98.9, Arterial Blood Base Excess -1.0, Basilio Test Positive Current Medications Medications (Trade) Dose Ordered Sig/Lucille Route PRN Reason Start Time Stop Time Status Last Admin Dose Admin Acetaminophen (Tylenol) 650 mg Q4H PRN RECTAL Mild Pain (Pain Scale 1-3) 11/01/20 08:30 12/01/20 08:29 Acetaminophen (Tylenol) 650 mg Q6H PRN ORAL For Headache 11/01/20 08:30 12/01/20 08:29 Amiodarone HCl (Cordarone) 200 mg DAILY ORAL 11/01/20 09:00 01/30/21 08:59 11/03/20 10:07 Barium Sulfate (Varibar Honey) 250 ml NOW PRN RAD 11/02/20 16:15 11/05/20 16:14 Barium Sulfate (Varibar Bier) 240 ml NOW PRN RAD 11/02/20 16:15 11/05/20 16:14 Barium Sulfate (Varibar Pudding) 230 ml NOW PRN RAD 11/02/20 16:15 11/05/20 16:14 Barium Sulfate (Varibar Thin Liquid powder) 148 gm NOW PRN RAD 11/02/20 16:15 11/05/20 16:14 Ceftriaxone Sodium 1 gm/ Dextrose 55 ml @ 110 mls/hr Q24H IVPB 11/01/20 09:00 11/08/20 08:59 11/03/20 10:09 Clonidine HCl (Catapres Tab) 0.1 mg Q4H PRN ORAL SBP above 150 11/01/20 08:30 01/30/21 08:29 Dexamethasone Sodium Phosphate (Decadron 10mg/ ml Inj) 6 mg DAILY IV 11/02/20 09:00 11/10/20 09:01 11/03/20 10:09 Enoxaparin Sodium (Lovenox) 60 mg DAILY SUBQ 11/01/20 09:00 01/30/21 08:59 11/03/20 10:10 Furosemide (Lasix) 40 mg EVERY 12 HOURS IV 11/02/20 13:30 12/02/20 13:29 11/03/20 10:08 Ivermectin (StromectoL) 12 mg Q48H ORAL 11/02/20 22:00 1//21 23:59 Lorazepam (Ativan 2mg/ml 1ml) 1 mg Q4H PRN IV For Anxiety 11/02/20 00:15 11/09/20 00:14 11/02/20 22:01 Metoprolol Tartrate (Lopressor) 12.5 mg Q12HR ORAL 11/01/20 09:00 01/30/21 08:59 11/03/20 10:07 Pantoprazole (Protonix) 40 mg ACBREAKFAST ORAL 11/01/20 09:00 12/01/20 08:59 11/02/20 06:07 Assessment/Plan Assessment/Plan 1. COVID-19 pneumonia. - on Decadron - Continue BiPAP for now - Will transition to nasal O2/supplemental oxygen as tolerated. - ABG improved 2. Pulmonary edema. - Will dc fluids - Will diurese 3. History of CHF. 4. Multi-infarct dementia. 5. Hypertension. DVT ppx - On lovenox Urinary pathogen E. Coli - on ceftriaxone Check labs in AM The care for this patient was discussed with my supervising physician Time spent for this case was approximately 31 minutes Gagan Montilla Nov 03, 2020 12:30 Samuel Santamaria MD Nov 03, 2020 15:34
--- NOTE | 2020-11-03 13:28 | Surgery Progress Note ---
Surgery Progress Note Subjective Additional Comments kub okay cxr noted on bipap no nv labs reviewed Objective Last 24 Hour Vital Signs Date Time Temp Pulse Resp B/P (MAP) Pulse Ox O2 Delivery O2 Flow Rate FiO2 11/03/20 10:07 78 138/72 11/03/20 08:00 50 11/03/20 08:00 96.9 75 20 138/72 (94) 95 11/03/20 08:00 Bi-pap 11/03/20 07:57 100 Bi-Pap 11/03/20 07:57 70 16 100 50 11/03/20 07:46 76 11/03/20 04:00 54 11/03/20 04:00 Bi-pap 11/03/20 04:00 50 11/03/20 04:00 96.8 50 20 142/54 (83) 100 11/03/20 03:50 57 22 100 50 11/03/20 00:00 Bi-pap 11/03/20 00:00 76 11/03/20 00:00 50 11/03/20 00:00 97.7 85 20 119/59 (79) 100 11/02/20 23:12 91 18 100 50 11/02/20 22:31 85 18 119/59 97 11/02/20 22:02 140 181/91 11/02/20 22:01 140 25 181/95 97 11/02/20 20:32 56 15 100 50 11/02/20 20:00 97.7 140 18 181/97 (125) 100 11/02/20 20:00 Bi-pap 11/02/20 20:00 50 11/02/20 20:00 100 Bi-Pap 11/02/20 20:00 106 11/02/20 16:00 74 11/02/20 16:00 Bi-pap 11/02/20 16:00 97.1 52 20 138/55 (82) 100 52 11/02/20 16:00 50 I&O Intake and Output 11/02/20 11/03/20 19:00 07:00 Output Total 1500 ml 1700 ml Balance -1500 ml -1700 ml Output Urine Total 1500 ml 1700 ml Dressing: saturated Cardiovascular: RSR Respiratory: decreased breath sounds Abdomen: soft, non-tender, present bowel sounds, non-distended Extremities: no tenderness, no cyanosis Laboratory Tests Test 11/03/20 03:20 11/03/20 08:38 White Blood Count 6.7 K/UL (4.8-10.8) Red Blood Count 3.20 M/UL (4.70-6.10) L Hemoglobin 11.0 G/DL (14.2-18.0) L Hematocrit 33.2 % (42.0-52.0) L Mean Corpuscular Volume 104 FL (80-99) H Mean Corpuscular Hemoglobin 34.3 PG (27.0-31.0) H Mean Corpuscular Hemoglobin Concent 33.0 G/DL (32.0-36.0) Red Cell Distribution Width 14.0 % (11.6-14.8) Platelet Count 286 K/UL (150-450) Mean Platelet Volume 7.3 FL (6.5-10.1) Neutrophils (%) (Auto) % (45.0-75.0) Lymphocytes (%) (Auto) % (20.0-45.0) Monocytes (%) (Auto) % (1.0-10.0) Eosinophils (%) (Auto) % (0.0-3.0) Basophils (%) (Auto) % (0.0-2.0) Differential Total Cells Counted 100 Neutrophils % (Manual) 76 % (45-75) H Lymphocytes % (Manual) 15 % (20-45) L Monocytes % (Manual) 7 % (1-10) Eosinophils % (Manual) 0 % (0-3) Basophils % (Manual) 0 % (0-2) Band Neutrophils 2 % (0-8) Platelet Estimate Adequate Platelet Morphology Normal Anisocytosis 1+ Sodium Level 136 MMOL/L (136-145) Potassium Level 4.1 MMOL/L (3.5-5.1) Chloride Level 104 MMOL/L (98-107) Carbon Dioxide Level 26 MMOL/L (21-32) Blood Urea Nitrogen 45 mg/dL (7-18) H Creatinine 1.0 MG/DL (0.55-1.30) Estimat Glomerular Filtration Rate > 60 mL/min (>60) Glucose Level 126 MG/DL (74-106) H Calcium Level 7.5 MG/DL (8.5-10.1) L Arterial Blood pH 7.384 (7.350-7.450) Arterial Blood Partial Pressure CO2 41.2 mmHg (35.0-45.0) Arterial Blood Partial Pressure O2 224.5 mmHg (75.0-100.0) H Arterial Blood HCO3 24.0 mmol/L (22.0-26.0) Arterial Blood Oxygen Saturation 98.9 % (95-100) Arterial Blood Base Excess -1.0 (-2-2) Baislio Test Positive Plan Problems: (1) Respiratory distress (2) CHF (congestive heart failure) (3) Hypoxia (4) NSTEMI (non-ST elevated myocardial infarction) (5) COVID-19 virus detected Assessment & Plan: ++ as per pulm and id (6) Shortness of breath (7) Malnutrition (8) Weakness (9) Elevated troponin (10) Abnormal LFTs Assessment & Plan: ast/alt alk phos elevated no cici hold US trend labs exam benign (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 CURRENT DIET: Cardiac ms ground PO DIET RECOMMENDATIONS: Low Na diet/ texture per [employer] ADDITIONAL RECOMMENDATIONS: 1) Add Ensure Enlive BID w/ meals (350 kcal, 20g pro each) 2) Add snacks as tolerated in b/w meals 3) Replete lytes as needed (Low K 3.3) 4) maintain daily calibrated bed scale wts BMI now underweight 5) Consider Kcal count to evaluate po intake (7) Abnormal LFTs Assessment & Plan: elevated t bili ast/alt okay US ordered trend labs cont fluids will follow with resc. Liver: The liver is normal in size and echogenicity. No focal abnormalities are noted. Gallbladder: The gallbladder is normal. No stones are visualized. The wall is not thickened. Is no sonographic Galvan sign. Common bile duct: Normal in size. Pancreas: The visualized portion of pancreas is normal in echogenicity. There are no masses. Kidneys: The kidneys are normal in size and demonstrate cortical thinning. There is fullness of the right collecting system. There is a 2.2 cm parapelvic right renal cyst. There is a subcentimeter right midpole cyst. Prostate is within normal limits in volume. There is mild post void residual volume of 65 mL. Spleen: The spleen is normal in size and echogenicity. Additional findings: Images aorta is unremarkable. There is a large right pleural effusion. There is a large left pleural effusion. IMPRESSION: 1. Mildly atrophic kidneys. 2. Fullness of the right collecting system without sonographic evidence of obstructive process. 3. Mild post void residual volume of 65 mL. 4. Large bilateral pleural effusions. 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 loose bm soilage. patient not able to always states when. wash daily with NS. apply skin protectant turn q2h off load pressure monitor for incontinence and care appropriately thank you Mo Siegel Nov 03, 2020 13:27
[2020-11-03 16:00] VITALS: BP 135/55
--- NOTE | 2020-11-03 17:11 | Infectious Diseases Prog Note ---
Assessment/Plan Assessment/Plan antibiotics : ceftriaxone A 1. covid 19 pneumonia on 50 % Fi O2, saturation 100 % 2. e.coli UTI 3. CHF 4. dementia 5. atrial fibrillation P 1. continue dexamethasone day 3 2. 1 dose ivermectin 3. continue ceftriaxone 5 more days 4. continue isolation Subjective ROS Limited/Unobtainable: Yes Allergies: Coded Allergies: No Known Allergies (Unverified , 09/16/20) Objective Last 24 Hour Vital Signs Date Time Temp Pulse Resp B/P (MAP) Pulse Ox O2 Delivery O2 Flow Rate FiO2 11/03/20 16:00 85 11/03/20 12:00 97.0 87 19 141/67 (91) 100 11/03/20 11:49 76 11/03/20 10:07 78 138/72 11/03/20 08:00 50 11/03/20 08:00 96.9 75 20 138/72 (94) 95 11/03/20 08:00 Bi-pap 11/03/20 07:57 100 Bi-Pap 11/03/20 07:57 70 16 100 50 11/03/20 07:46 76 11/03/20 04:00 54 11/03/20 04:00 Bi-pap 11/03/20 04:00 50 11/03/20 04:00 96.8 50 20 142/54 (83) 100 11/03/20 03:50 57 22 100 50 11/03/20 00:00 Bi-pap 11/03/20 00:00 76 11/03/20 00:00 50 11/03/20 00:00 97.7 85 20 119/59 (79) 100 11/02/20 23:12 91 18 100 50 11/02/20 22:31 85 18 119/59 97 11/02/20 22:02 140 181/91 11/02/20 22:01 140 25 181/95 97 11/02/20 20:32 56 15 100 50 11/02/20 20:00 97.7 140 18 181/97 (125) 100 11/02/20 20:00 Bi-pap 11/02/20 20:00 50 11/02/20 20:00 100 Bi-Pap 11/02/20 20:00 106 Height (Feet): 5 Height (Inches): 6.00 Weight (Pounds): 145 HEENT: other - on bipap Microbiology Date/Time Source Procedure Growth Status 11/01/20 05:05 Urine,Clean Catch Urine Culture - Final Escherichia Coli Complete 11/01/20 04:54 Nasopharynx SARS-CoV-2 RdRp Gene Assay - Final Complete 11/01/20 04:45 Rectum - Final NO CARBAPENEM-RESISTANT ENTEROBACTERI... Complete 11/01/20 04:45 Rectum VRE Culture - Final NO VANCOMYCIN RESISTANT ENTEROCOCCUS ... Complete 11/01/20 04:45 Nasal Nares MRSA Culture - Final NO METHICILLIN RESISTANT STAPH AUREUS... Complete 11/01/20 04:45 Blood Blood Culture - Preliminary NO GROWTH AFTER 24 HOURS Resulted 11/01/20 04:45 Blood Blood Culture - Preliminary NO GROWTH AFTER 24 HOURS Resulted Laboratory Tests Test 11/03/20 03:20 11/03/20 08:38 White Blood Count 6.7 K/UL (4.8-10.8) Red Blood Count 3.20 M/UL (4.70-6.10) L Hemoglobin 11.0 G/DL (14.2-18.0) L Hematocrit 33.2 % (42.0-52.0) L Mean Corpuscular Volume 104 FL (80-99) H Mean Corpuscular Hemoglobin 34.3 PG (27.0-31.0) H Mean Corpuscular Hemoglobin Concent 33.0 G/DL (32.0-36.0) Red Cell Distribution Width 14.0 % (11.6-14.8) Platelet Count 286 K/UL (150-450) Mean Platelet Volume 7.3 FL (6.5-10.1) Neutrophils (%) (Auto) % (45.0-75.0) Lymphocytes (%) (Auto) % (20.0-45.0) Monocytes (%) (Auto) % (1.0-10.0) Eosinophils (%) (Auto) % (0.0-3.0) Basophils (%) (Auto) % (0.0-2.0) Differential Total Cells Counted 100 Neutrophils % (Manual) 76 % (45-75) H Lymphocytes % (Manual) 15 % (20-45) L Monocytes % (Manual) 7 % (1-10) Eosinophils % (Manual) 0 % (0-3) Basophils % (Manual) 0 % (0-2) Band Neutrophils 2 % (0-8) Platelet Estimate Adequate Platelet Morphology Normal Anisocytosis 1+ Sodium Level 136 MMOL/L (136-145) Potassium Level 4.1 MMOL/L (3.5-5.1) Chloride Level 104 MMOL/L (98-107) Carbon Dioxide Level 26 MMOL/L (21-32) Blood Urea Nitrogen 45 mg/dL (7-18) H Creatinine 1.0 MG/DL (0.55-1.30) Estimat Glomerular Filtration Rate > 60 mL/min (>60) Glucose Level 126 MG/DL (74-106) H Calcium Level 7.5 MG/DL (8.5-10.1) L Arterial Blood pH 7.384 (7.350-7.450) Arterial Blood Partial Pressure CO2 41.2 mmHg (35.0-45.0) Arterial Blood Partial Pressure O2 224.5 mmHg (75.0-100.0) H Arterial Blood HCO3 24.0 mmol/L (22.0-26.0) Arterial Blood Oxygen Saturation 98.9 % (95-100) Arterial Blood Base Excess -1.0 (-2-2) Basilio Test Positive Current Medications Medications (Trade) Dose Ordered Sig/Lucille Route PRN Reason Start Time Stop Time Status Last Admin Dose Admin Acetaminophen (Tylenol) 650 mg Q4H PRN RECTAL Mild Pain (Pain Scale 1-3) 11/01/20 08:30 12/01/20 08:29 Acetaminophen (Tylenol) 650 mg Q6H PRN ORAL For Headache 11/01/20 08:30 12/01/20 08:29 Amiodarone HCl (Cordarone) 200 mg DAILY ORAL 11/01/20 09:00 01/30/21 08:59 11/03/20 10:07 Barium Sulfate (Varibar Honey) 250 ml NOW PRN RAD 11/02/20 16:15 11/05/20 16:14 Barium Sulfate (Varibar Jolivue) 240 ml NOW PRN RAD 11/02/20 16:15 11/05/20 16:14 Barium Sulfate (Varibar Pudding) 230 ml NOW PRN RAD 11/02/20 16:15 11/05/20 16:14 Barium Sulfate (Varibar Thin Liquid powder) 148 gm NOW PRN RAD 11/02/20 16:15 11/05/20 16:14 Ceftriaxone Sodium 1 gm/ Dextrose 55 ml @ 110 mls/hr Q24H IVPB 11/01/20 09:00 11/08/20 08:59 11/03/20 10:09 Clonidine HCl (Catapres Tab) 0.1 mg Q4H PRN ORAL SBP above 150 11/01/20 08:30 01/30/21 08:29 Dexamethasone Sodium Phosphate (Decadron 10mg/ ml Inj) 6 mg DAILY IV 11/02/20 09:00 11/10/20 09:01 11/03/20 10:09 Enoxaparin Sodium (Lovenox) 60 mg DAILY SUBQ 11/01/20 09:00 01/30/21 08:59 11/03/20 10:10 Furosemide (Lasix) 40 mg EVERY 12 HOURS IV 11/02/20 13:30 12/02/20 13:29 11/03/20 10:08 Ivermectin (StromectoL) 12 mg Q48H ORAL 11/02/20 22:00 11/04/20 23:59 Lorazepam (Ativan 2mg/ml 1ml) 1 mg Q4H PRN IV For Anxiety 11/02/20 00:15 11/09/20 00:14 11/02/20 22:01 Metoprolol Tartrate (Lopressor) 12.5 mg Q12HR ORAL 11/01/20 09:00 01/30/21 08:59 11/03/20 10:07 Pantoprazole (Protonix) 40 mg ACBREAKFAST ORAL 11/01/20 09:00 12/01/20 08:59 11/02/20 06:07 Coretta Garcia MD Nov 03, 2020 17:11
[2020-11-03 20:00] VITALS: BP 150/82
[2020-11-04] VITALS: BP 142/79
[2020-11-04] MEDS: LORazepam Inj 2mg/ml 1ml IV PRN (00:15)
[2020-11-04 04:00] VITALS: BP 146/84
[2020-11-04 06:25] LABS: HEMATOCRIT 35.2 % (42.0-52.0); HEMOGLOBIN 12.3 G/DL (14.2-18.0); MEAN CORPUSCULAR VOLUME 100 FL (80-99); PLATELET COUNT 312 K/UL (150-450); RED BLOOD COUNT 3.52 M/UL (4.70-6.10); RED CELL DISTRIBUTION WIDTH 14.9 % (11.6-14.8); WHITE BLOOD COUNT 10.1 K/UL (4.8-10.8)
[2020-11-04 06:31] LABS: ALANINE AMINOTRANSFERASE 179 U/L (12-78); ALBUMIN 2.5 G/DL (3.4-5.0); ALBUMIN/GLOBULIN RATIO 0.7 (1.0-2.7); ALKALINE PHOSPHATASE 19 U/L (46-116); ANION GAP 7 mmol/L (5-15); ASPARTATE AMINO TRANSFERASE 50 U/L (15-37); BILIRUBIN,TOTAL 0.6 MG/DL (0.2-1.0); BLOOD UREA NITROGEN 43 mg/dL (7-18); CALCIUM 8.3 MG/DL (8.5-10.1); CARBON DIOXIDE 30 MMOL/L (21-32); CHLORIDE 101 MMOL/L (98-107); POTASSIUM 3.5 MMOL/L (3.5-5.1); SODIUM 138 MMOL/L (136-145)
[2020-11-04 08:00] VITALS: BP 171/88
--- NOTE | 2020-11-04 10:47 | Pulmonology Progress Note ---
Subjective ROS Limited/Unobtainable: Yes Interval Events: now on 15L NRBM Constitutional: Denies: fever HEENT: Repors: no symptoms Respiratory: Reports: no symptoms Cardiovascular: Reports: no symptoms Gastrointestinal/Abdominal: Reports: no symptoms Allergies: Coded Allergies: No Known Allergies (Unverified , 09/16/20) All Systems: reviewed and negative except above Objective Last 24 Hour Vital Signs Date Time Temp Pulse Resp B/P (MAP) Pulse Ox O2 Delivery O2 Flow Rate FiO2 11/04/20 07:49 92 11/04/20 04:00 15.0 11/04/20 04:00 97.4 106 24 146/84 (104) 99 11/04/20 04:00 Non-Rebreather 15.0 11/04/20 03:46 68 11/04/20 00:45 91 20 138/62 100 11/04/20 00:15 110 22 142/79 100 11/04/20 00:00 97.0 108 24 142/79 (100) 100 11/04/20 00:00 15.0 11/04/20 00:00 Non-Rebreather 15.0 11/03/20 23:55 110 11/03/20 20:51 78 131/59 11/03/20 20:00 15.0 11/03/20 20:00 97.9 72 22 150/82 (104) 100 11/03/20 20:00 Non-Rebreather 15.0 11/03/20 19:46 98 Non-Rebreather 15.0 100 11/03/20 19:44 108 11/03/20 16:00 97.3 65 18 135/55 (81) 100 11/03/20 16:00 Non-Rebreather 15.0 11/03/20 16:00 85 11/03/20 16:00 15.0 11/03/20 12:00 97.0 87 19 141/67 (91) 100 11/03/20 12:00 15.0 11/03/20 12:00 Non-Rebreather 15.0 11/03/20 11:49 76 Intake and Output 11/03/20 11/04/20 19:00 07:00 Output Total 1500 ml 2000 ml Balance -1500 ml -2000 ml Output Urine Total 1500 ml 2000 ml Objective now on 15L NRBM saturating at 99% General Appearance: no acute distress HEENT: normocephalic Respiratory: chest wall non-tender, decreased breath sounds Cardiovascular: normal peripheral pulses Abdomen: normal bowel sounds Extremities: no cyanosis Laboratory Tests 11/04/20 05:10: White Blood Count 10.1#, Red Blood Count 3.52L, Hemoglobin 12.3L, Hematocrit 35.2L, Mean Corpuscular Volume 100H, Mean Corpuscular Hemoglobin 34.9H, Mean Corpuscular Hemoglobin Concent 34.9, Red Cell Distribution Width 14.9H, Platelet Count 312, Mean Platelet Volume 8.2, Neutrophils (%) (Auto) , Lymphocytes (%) (Auto) , Monocytes (%) (Auto) , Eosinophils (%) (Auto) , Basophils (%) (Auto) , Differential Total Cells Counted 100, Neutrophils % (Manual) 88H, Lymphocytes % (Manual) 5L, Monocytes % (Manual) 7, Eosinophils % (Manual) 0, Basophils % (Manual) 0, Band Neutrophils 0, Platelet Estimate Adequate, Platelet Morphology Normal, Anisocytosis 1+, Macrocytosis 1+, Sodium Level 138, Potassium Level 3.5, Chloride Level 101, Carbon Dioxide Level 30, Anion Gap 7, Blood Urea Nitrogen 43H, Creatinine 1.0, Estimat Glomerular Filtration Rate > 60, Glucose Level 128H , Calcium Level 8.3L, Total Bilirubin 0.6, Aspartate Amino Transf (AST/SGOT) 50H , Alanine Aminotransferase (ALT/SGPT) 179H, Alkaline Phosphatase 19L, Total Protein 6.2L, Albumin 2.5L, Globulin 3.7, Albumin/Globulin Ratio 0.7L Current Medications Medications (Trade) Dose Ordered Sig/Lucille Route PRN Reason Start Time Stop Time Status Last Admin Dose Admin Acetaminophen (Tylenol) 650 mg Q4H PRN RECTAL Mild Pain (Pain Scale 1-3) 11/01/20 08:30 12/01/20 08:29 Acetaminophen (Tylenol) 650 mg Q6H PRN ORAL For Headache 11/01/20 08:30 12/01/20 08:29 Amiodarone HCl (Cordarone) 200 mg DAILY ORAL 11/01/20 09:00 01/30/21 08:59 11/03/20 10:07 Barium Sulfate (Varibar Honey) 250 ml NOW PRN MC RAD 11/02/20 16:15 11/05/20 16:14 Barium Sulfate (Varibar [place]) 240 ml NOW PRN RAD 11/02/20 16:15 11/05/20 16:14 Barium Sulfate (Varibar Pudding) 230 ml NOW PRN RAD 11/02/20 16:15 11/05/20 16:14 Barium Sulfate (Varibar Thin Liquid powder) 148 gm NOW PRN RAD 11/02/20 16:15 11/05/20 16:14 Ceftriaxone Sodium 1 gm/ Dextrose 55 ml @ 110 mls/hr Q24H IVPB 11/01/20 09:00 11/08/20 08:59 11/03/20 10:09 Clonidine HCl (Catapres Tab) 0.1 mg Q4H PRN ORAL SBP above 150 11/01/20 08:30 01/30/21 08:29 Dexamethasone Sodium Phosphate (Decadron 10mg/ ml Inj) 6 mg DAILY IV 11/02/20 09:00 11/10/20 09:01 11/03/20 10:09 Enoxaparin Sodium (Lovenox) 60 mg DAILY SUBQ 11/01/20 09:00 01/30/21 08:59 11/03/20 10:10 Furosemide (Lasix) 40 mg EVERY 12 HOURS IV 11/02/20 13:30 12/02/20 13:29 11/03/20 20:50 Ivermectin (StromectoL) 12 mg Q48H ORAL 11/02/20 22:00 11/04/20 23:59 11/03/20 18:31 Lorazepam (Ativan 2mg/ml 1ml) 1 mg Q4H PRN IV For Anxiety 11/02/20 00:15 11/09/20 00:14 11/04/20 00:15 Metoprolol Tartrate (Lopressor) 12.5 mg Q12HR ORAL 11/01/20 09:00 01/30/21 08:59 11/03/20 20:51 Pantoprazole (Protonix) 40 mg ACBREAKFAST ORAL 11/01/20 09:00 12/01/20 08:59 11/04/20 05:33 Assessment/Plan Assessment/Plan 1. COVID-19 pneumonia. - on Decadron - saturating at 99% on 15L NRBM; will attempt weaning today - Will transition to nasal O2/supplemental oxygen as tolerated. - ABG improved 2. Pulmonary edema. - Will dc fluids - Will diurese 3. History of CHF. 4. Multi-infarct dementia. 5. Hypertension. DVT ppx - On lovenox Urinary pathogen E. Coli - on ceftriaxone The care for this patient was discussed with my supervising physician Time spent for this case was approximately 31 minutes Gagan Montilla Nov 04, 2020 10:47
[2020-11-04] MEDS: Amiodarone 200mg tab ORAL SCH (10:59)
[2020-11-04] MEDS: Metoprolol Tartrate 12.5mg TAB ORAL SCH ×2 (11:01→21:00)
[2020-11-04] MEDS: Enoxaparin 60mg Inj SUBQ SCH (11:02)
[2020-11-04] MEDS: dexAMETHasone 10mg/ml Inj IV SCH (11:53)
[2020-11-04] MEDS: cefTRIAXone 1 GM in D5W 55 ML IVPB SCH (11:57)
[2020-11-04 12:00] VITALS: BP 135/74
--- NOTE | 2020-11-04 12:17 | General Progress Note ---
Subjective ROS Limited/Unobtainable: Yes Constitutional: Reports: no symptoms HEENT: Reports: no symptoms Cardiovascular: Reports: no symptoms Respiratory: Reports: cough, shortness of breath Gastrointestinal/Abdominal: Reports: no symptoms Genitourinary: Reports: no symptoms Neurologic/Psychiatric: Reports: anxiety Endocrine: Reports: no symptoms Hematologic/Lymphatic: Reports: no symptoms Allergies: Coded Allergies: No Known Allergies (Unverified , 09/16/20) All Systems: reviewed and negative except above Subjective no change. remains on bipap. anxious and agitated. no fevers. d/w RN. Objective Last 24 Hour Vital Signs Date Time Temp Pulse Resp B/P (MAP) Pulse Ox O2 Delivery O2 Flow Rate FiO2 11/04/20 11:01 80 171/88 11/04/20 07:49 92 11/04/20 04:00 15.0 11/04/20 04:00 97.4 106 24 146/84 (104) 99 11/04/20 04:00 Non-Rebreather 15.0 11/04/20 03:46 68 11/04/20 00:45 91 20 138/62 100 11/04/20 00:15 110 22 142/79 100 11/04/20 00:00 97.0 108 24 142/79 (100) 100 11/04/20 00:00 15.0 11/04/20 00:00 Non-Rebreather 15.0 11/03/20 23:55 110 11/03/20 20:51 78 131/59 11/03/20 20:00 15.0 11/03/20 20:00 97.9 72 22 150/82 (104) 100 11/03/20 20:00 Non-Rebreather 15.0 11/03/20 19:46 98 Non-Rebreather 15.0 100 11/03/20 19:44 108 11/03/20 16:00 97.3 65 18 135/55 (81) 100 11/03/20 16:00 Non-Rebreather 15.0 11/03/20 16:00 85 11/03/20 16:00 15.0 Intake and Output 11/03/20 11/04/20 19:00 07:00 Output Total 1500 ml 2000 ml Balance -1500 ml -2000 ml Output Urine Total 1500 ml 2000 ml Laboratory Tests 11/04/20 05:10: White Blood Count 10.1#, Red Blood Count 3.52L, Hemoglobin 12.3L, Hematocrit 35.2L, Mean Corpuscular Volume 100H, Mean Corpuscular Hemoglobin 34.9H, Mean Corpuscular Hemoglobin Concent 34.9, Red Cell Distribution Width 14.9H, Platelet Count 312, Mean Platelet Volume 8.2, Neutrophils (%) (Auto) , Lymphocytes (%) (Auto) , Monocytes (%) (Auto) , Eosinophils (%) (Auto) , Basophils (%) (Auto) , Differential Total Cells Counted 100, Neutrophils % (Manual) 88H, Lymphocytes % (Manual) 5L, Monocytes % (Manual) 7, Eosinophils % (Manual) 0, Basophils % (Manual) 0, Band Neutrophils 0, Platelet Estimate Adequate, Platelet Morphology Normal, Anisocytosis 1+, Macrocytosis 1+, Sodium Level 138, Potassium Level 3.5, Chloride Level 101, Carbon Dioxide Level 30, Anion Gap 7, Blood Urea Nitrogen 43H, Creatinine 1.0, Estimat Glomerular Filtration Rate > 60, Glucose Level 128H , Calcium Level 8.3L, Total Bilirubin 0.6, Aspartate Amino Transf (AST/SGOT) 50H , Alanine Aminotransferase (ALT/SGPT) 179H, Alkaline Phosphatase 19L, Total Protein 6.2L, Albumin 2.5L, Globulin 3.7, Albumin/Globulin Ratio 0.7L Height (Feet): 5 Height (Inches): 6.00 Weight (Pounds): 145 Objective General Appearance: WD/WN, alert EENT: normal ENT inspection Neck: normal alignment Cardiovascular: normal peripheral pulses Respiratory/Chest: chest wall non-tender, lungs clear, normal breath sounds Abdomen: normal bowel sounds, non tender, soft, no organomegaly Edema: no edema noted Arm (L), no edema noted Arm (R), no edema noted Leg (L), no edema noted Leg (R) Neurologic: alert, responsive Skin: normal pigmentation Assessment/Plan Problem List: (1) COVID-19 virus detected ICD Codes: U07.1 - COVID-19 SNOMED: 8889149337196881 (2) NSTEMI (non-ST elevated myocardial infarction) ICD Codes: I21.4 - Non-ST elevation (NSTEMI) myocardial infarction SNOMED: 67889786 (3) Hypoxia ICD Codes: R09.02 - Hypoxemia SNOMED: 017022859 (4) CHF (congestive heart failure) ICD Codes: I50.9 - Heart failure, unspecified SNOMED: 83515224 Qualifiers: Qualified Codes: I50.9 - Heart failure, unspecified (5) Respiratory distress ICD Codes: R06.03 - Acute respiratory distress SNOMED: 865364438 (6) Pneumonia due to COVID-19 virus ICD Codes: U07.1 - COVID-19; J12.89 - Other viral pneumonia SNOMED: 055621616764553107 (7) Shortness of breath ICD Codes: R06.02 - Shortness of breath SNOMED: 483947677 Status: stable, progressing Assessment/Plan: cont current rx iv steroids s/p ivermectin resp care o2 dvt/stress ulcer prophylaxis swallow eval monitor cxr and abg diuresis anxiolytics o2 as needed guarded Donnell Pedersen MD Nov 04, 2020 12:16
--- NOTE | 2020-11-04 13:35 | Infectious Diseases Prog Note ---
Assessment/Plan Assessment/Plan A: 1. COVID-19 pneumonia. 2. Congestive heart failure. 3. Coronary artery disease. 4. Atrial fibrillation. 5. Dementia. 6. Hypoxemia 7. E.coli UTI PLAN: 1. Continue dexamethasone day #4 2. Got a dose of ivermectin 3. Continue isolation. 4. Continue Rocephin x 4 days Subjective ROS Limited/Unobtainable: Yes Constitutional: Denies: fever Neurologic: Reports: other - more alert, on restraint Allergies: Coded Allergies: No Known Allergies (Unverified , 09/16/20) Objective Last 24 Hour Vital Signs Date Time Temp Pulse Resp B/P (MAP) Pulse Ox O2 Delivery O2 Flow Rate FiO2 11/04/20 12:00 10.0 11/04/20 12:00 97.3 81 21 135/74 (94) 99 11/04/20 12:00 Non-Rebreather 15.0 11/04/20 12:00 83 11/04/20 11:01 80 171/88 11/04/20 10:57 98 Venturi Mask 10.0 50 11/04/20 08:00 15.0 11/04/20 08:00 97.0 106 26 171/88 (115) 99 11/04/20 08:00 Non-Rebreather 15.0 11/04/20 07:49 92 11/04/20 06:48 100 Non-Rebreather 15.0 100 11/04/20 04:00 15.0 11/04/20 04:00 97.4 106 24 146/84 (104) 99 11/04/20 04:00 Non-Rebreather 15.0 11/04/20 03:46 68 11/04/20 00:45 91 20 138/62 100 11/04/20 00:15 110 22 142/79 100 11/04/20 00:00 97.0 108 24 142/79 (100) 100 11/04/20 00:00 15.0 11/04/20 00:00 Non-Rebreather 15.0 11/03/20 23:55 110 11/03/20 20:51 78 131/59 11/03/20 20:00 15.0 11/03/20 20:00 97.9 72 22 150/82 (104) 100 11/03/20 20:00 Non-Rebreather 15.0 11/03/20 19:46 98 Non-Rebreather 15.0 100 11/03/20 19:44 108 11/03/20 16:00 97.3 65 18 135/55 (81) 100 11/03/20 16:00 Non-Rebreather 15.0 11/03/20 16:00 85 11/03/20 16:00 15.0 Height (Feet): 5 Height (Inches): 6.00 Weight (Pounds): 145 HEENT: mucous membranes moist Respiratory/Chest: lungs clear, other - on BIPAP Cardiovascular: normal rate Abdomen: soft, non tender Extremities: no edema Neurologic/Psychiatric: alert, responsive Laboratory Tests Test 11/04/20 05:10 White Blood Count 10.1 K/UL (4.8-10.8) # Red Blood Count 3.52 M/UL (4.70-6.10) L Hemoglobin 12.3 G/DL (14.2-18.0) L Hematocrit 35.2 % (42.0-52.0) L Mean Corpuscular Volume 100 FL (80-99) H Mean Corpuscular Hemoglobin 34.9 PG (27.0-31.0) H Mean Corpuscular Hemoglobin Concent 34.9 G/DL (32.0-36.0) Red Cell Distribution Width 14.9 % (11.6-14.8) H Platelet Count 312 K/UL (150-450) Mean Platelet Volume 8.2 FL (6.5-10.1) Neutrophils (%) (Auto) % (45.0-75.0) Lymphocytes (%) (Auto) % (20.0-45.0) Monocytes (%) (Auto) % (1.0-10.0) Eosinophils (%) (Auto) % (0.0-3.0) Basophils (%) (Auto) % (0.0-2.0) Differential Total Cells Counted 100 Neutrophils % (Manual) 88 % (45-75) H Lymphocytes % (Manual) 5 % (20-45) L Monocytes % (Manual) 7 % (1-10) Eosinophils % (Manual) 0 % (0-3) Basophils % (Manual) 0 % (0-2) Band Neutrophils 0 % (0-8) Platelet Estimate Adequate Platelet Morphology Normal Anisocytosis 1+ Macrocytosis 1+ Sodium Level 138 MMOL/L (136-145) Potassium Level 3.5 MMOL/L (3.5-5.1) Chloride Level 101 MMOL/L (98-107) Carbon Dioxide Level 30 MMOL/L (21-32) Anion Gap 7 mmol/L (5-15) Blood Urea Nitrogen 43 mg/dL (7-18) H Creatinine 1.0 MG/DL (0.55-1.30) Estimat Glomerular Filtration Rate > 60 mL/min (>60) Glucose Level 128 MG/DL (74-106) H Calcium Level 8.3 MG/DL (8.5-10.1) L Total Bilirubin 0.6 MG/DL (0.2-1.0) Aspartate Amino Transf (AST/SGOT) 50 U/L (15-37) H Alanine Aminotransferase (ALT/SGPT) 179 U/L (12-78) H Alkaline Phosphatase 19 U/L (46-116) L Total Protein 6.2 G/DL (6.4-8.2) L Albumin 2.5 G/DL (3.4-5.0) L Globulin 3.7 g/dL Albumin/Globulin Ratio 0.7 (1.0-2.7) L Current Medications Medications (Trade) Dose Ordered Sig/Lucille Route PRN Reason Start Time Stop Time Status Last Admin Dose Admin Acetaminophen (Tylenol) 650 mg Q4H PRN RECTAL Mild Pain (Pain Scale 1-3) 11/01/20 08:30 12/01/20 08:29 Acetaminophen (Tylenol) 650 mg Q6H PRN ORAL For Headache 11/01/20 08:30 12/01/20 08:29 Amiodarone HCl (Cordarone) 200 mg DAILY ORAL 11/01/20 09:00 01/30/21 08:59 11/04/20 10:59 Barium Sulfate (Varibar Honey) 250 ml NOW PRN MC RAD 11/02/20 16:15 11/05/20 16:14 Barium Sulfate (Varibar [place]) 240 ml NOW PRN MC RAD 11/02/20 16:15 11/05/20 16:14 Barium Sulfate (Varibar Pudding) 230 ml NOW PRN RAD 11/02/20 16:15 11/05/20 16:14 Barium Sulfate (Varibar Thin Liquid powder) 148 gm NOW PRN MC RAD 11/02/20 16:15 11/05/20 16:14 Ceftriaxone Sodium 1 gm/ Dextrose 55 ml @ 110 mls/hr Q24H IVPB 11/01/20 09:00 11/08/20 08:59 11/04/20 11:57 Clonidine HCl (Catapres Tab) 0.1 mg Q4H PRN ORAL SBP above 150 11/01/20 08:30 01/30/21 08:29 Dexamethasone Sodium Phosphate (Decadron 10mg/ ml Inj) 6 mg DAILY IV 11/02/20 09:00 11/10/20 09:01 11/04/20 11:53 Enoxaparin Sodium (Lovenox) 60 mg DAILY SUBQ 11/01/20 09:00 01/30/21 08:59 11/04/20 11:02 Furosemide (Lasix) 40 mg EVERY 12 HOURS IV 11/02/20 13:30 12/02/20 13:29 11/04/20 11:53 Ivermectin (StromectoL) 12 mg Q48H ORAL 11/02/20 22:00 11/04/20 23:59 11/03/20 18:31 Lorazepam (Ativan 2mg/ml 1ml) 1 mg Q4H PRN IV For Anxiety 11/02/20 00:15 11/09/20 00:14 11/04/20 00:15 Metoprolol Tartrate (Lopressor) 12.5 mg Q12HR ORAL 11/01/20 09:00 01/30/21 08:59 11/04/20 11:01 Pantoprazole (Protonix) 40 mg ACBREAKFAST ORAL 11/01/20 09:00 12/01/20 08:59 11/04/20 05:33 Quetiapine Fumarate (SEROqueL) 25 mg Q12HR ORAL 11/04/20 12:30 12/19/20 12:29 Silvio Medrano MD Nov 04, 2020 13:35
--- NOTE | 2020-11-04 14:07 | Infectious Diseases Prog Note ---
Assessment/Plan Assessment/Plan A: 1. COVID-19 pneumonia. 2. Congestive heart failure. 3. Coronary artery disease. 4. Atrial fibrillation. 5. Dementia. 6. Hypoxemia 7. E.coli UTI PLAN: 1. Continue dexamethasone day #4 2. Got a dose of ivermectin 3. Continue isolation. 4. Continue Rocephin x 4 days Subjective ROS Limited/Unobtainable: Yes Constitutional: Reports: other - doing better, transferred from [facility] to telemetry Neurologic: Reports: confusion, other - on restraint Allergies: Coded Allergies: No Known Allergies (Unverified , 09/16/20) Objective Last 24 Hour Vital Signs Date Time Temp Pulse Resp B/P (MAP) Pulse Ox O2 Delivery O2 Flow Rate FiO2 11/04/20 12:00 10.0 11/04/20 12:00 97.3 81 21 135/74 (94) 99 11/04/20 12:00 Non-Rebreather 15.0 11/04/20 12:00 83 11/04/20 11:01 80 171/88 11/04/20 10:57 98 Venturi Mask 10.0 50 11/04/20 08:00 15.0 11/04/20 08:00 97.0 106 26 171/88 (115) 99 11/04/20 08:00 Non-Rebreather 15.0 11/04/20 07:49 92 11/04/20 06:48 100 Non-Rebreather 15.0 100 11/04/20 04:00 15.0 11/04/20 04:00 97.4 106 24 146/84 (104) 99 11/04/20 04:00 Non-Rebreather 15.0 11/04/20 03:46 68 11/04/20 00:45 91 20 138/62 100 11/04/20 00:15 110 22 142/79 100 11/04/20 00:00 97.0 108 24 142/79 (100) 100 11/04/20 00:00 15.0 11/04/20 00:00 Non-Rebreather 15.0 11/03/20 23:55 110 11/03/20 20:51 78 131/59 11/03/20 20:00 15.0 11/03/20 20:00 97.9 72 22 150/82 (104) 100 11/03/20 20:00 Non-Rebreather 15.0 11/03/20 19:46 98 Non-Rebreather 15.0 100 11/03/20 19:44 108 11/03/20 16:00 97.3 65 18 135/55 (81) 100 11/03/20 16:00 Non-Rebreather 15.0 11/03/20 16:00 85 11/03/20 16:00 15.0 Height (Feet): 5 Height (Inches): 6.00 Weight (Pounds): 145 HEENT: mucous membranes moist Respiratory/Chest: other - oxygen by venturi mask Cardiovascular: normal rate Abdomen: soft, non tender Extremities: no edema Neurologic/Psychiatric: alert, responsive Laboratory Tests Test 11/04/20 05:10 White Blood Count 10.1 K/UL (4.8-10.8) # Red Blood Count 3.52 M/UL (4.70-6.10) L Hemoglobin 12.3 G/DL (14.2-18.0) L Hematocrit 35.2 % (42.0-52.0) L Mean Corpuscular Volume 100 FL (80-99) H Mean Corpuscular Hemoglobin 34.9 PG (27.0-31.0) H Mean Corpuscular Hemoglobin Concent 34.9 G/DL (32.0-36.0) Red Cell Distribution Width 14.9 % (11.6-14.8) H Platelet Count 312 K/UL (150-450) Mean Platelet Volume 8.2 FL (6.5-10.1) Neutrophils (%) (Auto) % (45.0-75.0) Lymphocytes (%) (Auto) % (20.0-45.0) Monocytes (%) (Auto) % (1.0-10.0) Eosinophils (%) (Auto) % (0.0-3.0) Basophils (%) (Auto) % (0.0-2.0) Differential Total Cells Counted 100 Neutrophils % (Manual) 88 % (45-75) H Lymphocytes % (Manual) 5 % (20-45) L Monocytes % (Manual) 7 % (1-10) Eosinophils % (Manual) 0 % (0-3) Basophils % (Manual) 0 % (0-2) Band Neutrophils 0 % (0-8) Platelet Estimate Adequate Platelet Morphology Normal Anisocytosis 1+ Macrocytosis 1+ Sodium Level 138 MMOL/L (136-145) Potassium Level 3.5 MMOL/L (3.5-5.1) Chloride Level 101 MMOL/L (98-107) Carbon Dioxide Level 30 MMOL/L (21-32) Anion Gap 7 mmol/L (5-15) Blood Urea Nitrogen 43 mg/dL (7-18) H Creatinine 1.0 MG/DL (0.55-1.30) Estimat Glomerular Filtration Rate > 60 mL/min (>60) Glucose Level 128 MG/DL (74-106) H Calcium Level 8.3 MG/DL (8.5-10.1) L Total Bilirubin 0.6 MG/DL (0.2-1.0) Aspartate Amino Transf (AST/SGOT) 50 U/L (15-37) H Alanine Aminotransferase (ALT/SGPT) 179 U/L (12-78) H Alkaline Phosphatase 19 U/L (46-116) L Total Protein 6.2 G/DL (6.4-8.2) L Albumin 2.5 G/DL (3.4-5.0) L Globulin 3.7 g/dL Albumin/Globulin Ratio 0.7 (1.0-2.7) L Current Medications Medications (Trade) Dose Ordered Sig/Lucille Route PRN Reason Start Time Stop Time Status Last Admin Dose Admin Acetaminophen (Tylenol) 650 mg Q4H PRN RECTAL Mild Pain (Pain Scale 1-3) 11/01/20 08:30 12/01/20 08:29 Acetaminophen (Tylenol) 650 mg Q6H PRN ORAL For Headache 11/01/20 08:30 12/01/20 08:29 Amiodarone HCl (Cordarone) 200 mg DAILY ORAL 11/01/20 09:00 01/30/21 08:59 11/04/20 10:59 Barium Sulfate (Varibar Honey) 250 ml NOW PRN RAD 11/02/20 16:15 11/05/20 16:14 Barium Sulfate (Varibar [place]) 240 ml NOW PRN RAD 11/02/20 16:15 11/05/20 16:14 Barium Sulfate (Varibar Pudding) 230 ml NOW PRN RAD 11/02/20 16:15 11/05/20 16:14 Barium Sulfate (Varibar Thin Liquid powder) 148 gm NOW PRN MC RAD 11/02/20 16:15 11/05/20 16:14 Ceftriaxone Sodium 1 gm/ Dextrose 55 ml @ 110 mls/hr Q24H IVPB 11/01/20 09:00 11/08/20 08:59 11/04/20 11:57 Clonidine HCl (Catapres Tab) 0.1 mg Q4H PRN ORAL SBP above 150 11/01/20 08:30 01/30/21 08:29 Dexamethasone Sodium Phosphate (Decadron 10mg/ ml Inj) 6 mg DAILY IV 11/02/20 09:00 11/10/20 09:01 11/04/20 11:53 Enoxaparin Sodium (Lovenox) 60 mg DAILY SUBQ 11/01/20 09:00 01/30/21 08:59 11/04/20 11:02 Furosemide (Lasix) 40 mg EVERY 12 HOURS IV 11/02/20 13:30 12/02/20 13:29 11/04/20 11:53 Ivermectin (StromectoL) 12 mg Q48H ORAL 11/02/20 22:00 11/04/20 23:59 11/03/20 18:31 Lorazepam (Ativan 2mg/ml 1ml) 1 mg Q4H PRN IV For Anxiety 11/02/20 00:15 11/09/20 00:14 11/04/20 00:15 Metoprolol Tartrate (Lopressor) 12.5 mg Q12HR ORAL 11/01/20 09:00 01/30/21 08:59 11/04/20 11:01 Pantoprazole (Protonix) 40 mg ACBREAKFAST ORAL 11/01/20 09:00 12/01/20 08:59 11/04/20 05:33 Quetiapine Fumarate (SEROqueL) 25 mg Q12HR ORAL 11/04/20 12:30 12/19/20 12:29 Silvio Medrano MD Nov 04, 2020 14:07
--- NOTE | 2020-11-04 15:36 | Surgery Progress Note ---
Surgery Progress Note Subjective Additional Comments labs okay lf'ts improving respiratory unchanged no n/v Objective Last 24 Hour Vital Signs Date Time Temp Pulse Resp B/P (MAP) Pulse Ox O2 Delivery O2 Flow Rate FiO2 11/04/20 12:00 10.0 11/04/20 12:00 97.3 81 21 135/74 (94) 99 11/04/20 12:00 Non-Rebreather 15.0 11/04/20 12:00 83 11/04/20 11:01 80 171/88 11/04/20 10:57 98 Venturi Mask 10.0 50 11/04/20 08:00 15.0 11/04/20 08:00 97.0 106 26 171/88 (115) 99 11/04/20 08:00 Non-Rebreather 15.0 11/04/20 07:49 92 11/04/20 06:48 100 Non-Rebreather 15.0 100 11/04/20 04:00 15.0 11/04/20 04:00 97.4 106 24 146/84 (104) 99 11/04/20 04:00 Non-Rebreather 15.0 11/04/20 03:46 68 11/04/20 00:45 91 20 138/62 100 11/04/20 00:15 110 22 142/79 100 11/04/20 00:00 97.0 108 24 142/79 (100) 100 11/04/20 00:00 15.0 11/04/20 00:00 Non-Rebreather 15.0 11/03/20 23:55 110 11/03/20 20:51 78 131/59 11/03/20 20:00 15.0 11/03/20 20:00 97.9 72 22 150/82 (104) 100 11/03/20 20:00 Non-Rebreather 15.0 11/03/20 19:46 98 Non-Rebreather 15.0 100 11/03/20 19:44 108 11/03/20 16:00 97.3 65 18 135/55 (81) 100 11/03/20 16:00 Non-Rebreather 15.0 11/03/20 16:00 85 11/03/20 16:00 15.0 I&O Intake and Output 11/03/20 11/04/20 19:00 07:00 Output Total 1500 ml 2000 ml Balance -1500 ml -2000 ml Output Urine Total 1500 ml 2000 ml Cardiovascular: RSR Respiratory: decreased breath sounds Abdomen: non-tender, present bowel sounds, non-distended Extremities: no tenderness, no cyanosis Laboratory Tests Test 11/04/20 05:10 White Blood Count 10.1 K/UL (4.8-10.8) # Red Blood Count 3.52 M/UL (4.70-6.10) L Hemoglobin 12.3 G/DL (14.2-18.0) L Hematocrit 35.2 % (42.0-52.0) L Mean Corpuscular Volume 100 FL (80-99) H Mean Corpuscular Hemoglobin 34.9 PG (27.0-31.0) H Mean Corpuscular Hemoglobin Concent 34.9 G/DL (32.0-36.0) Red Cell Distribution Width 14.9 % (11.6-14.8) H Platelet Count 312 K/UL (150-450) Mean Platelet Volume 8.2 FL (6.5-10.1) Neutrophils (%) (Auto) % (45.0-75.0) Lymphocytes (%) (Auto) % (20.0-45.0) Monocytes (%) (Auto) % (1.0-10.0) Eosinophils (%) (Auto) % (0.0-3.0) Basophils (%) (Auto) % (0.0-2.0) Differential Total Cells Counted 100 Neutrophils % (Manual) 88 % (45-75) H Lymphocytes % (Manual) 5 % (20-45) L Monocytes % (Manual) 7 % (1-10) Eosinophils % (Manual) 0 % (0-3) Basophils % (Manual) 0 % (0-2) Band Neutrophils 0 % (0-8) Platelet Estimate Adequate Platelet Morphology Normal Anisocytosis 1+ Macrocytosis 1+ Sodium Level 138 MMOL/L (136-145) Potassium Level 3.5 MMOL/L (3.5-5.1) Chloride Level 101 MMOL/L (98-107) Carbon Dioxide Level 30 MMOL/L (21-32) Anion Gap 7 mmol/L (5-15) Blood Urea Nitrogen 43 mg/dL (7-18) H Creatinine 1.0 MG/DL (0.55-1.30) Estimat Glomerular Filtration Rate > 60 mL/min (>60) Glucose Level 128 MG/DL (74-106) H Calcium Level 8.3 MG/DL (8.5-10.1) L Total Bilirubin 0.6 MG/DL (0.2-1.0) Aspartate Amino Transf (AST/SGOT) 50 U/L (15-37) H Alanine Aminotransferase (ALT/SGPT) 179 U/L (12-78) H Alkaline Phosphatase 19 U/L (46-116) L Total Protein 6.2 G/DL (6.4-8.2) L Albumin 2.5 G/DL (3.4-5.0) L Globulin 3.7 g/dL Albumin/Globulin Ratio 0.7 (1.0-2.7) L Plan Problems: (1) Respiratory distress (2) CHF (congestive heart failure) (3) Hypoxia (4) NSTEMI (non-ST elevated myocardial infarction) (5) COVID-19 virus detected Assessment & Plan: ++ as per pulm and id (6) Shortness of breath (7) Malnutrition (8) Weakness (9) Elevated troponin (10) Abnormal LFTs Assessment & Plan: ast/alt alk phos elevated no cici hold US trend labs exam benign (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 CURRENT DIET: Cardiac ms ground PO DIET RECOMMENDATIONS: Low Na diet/ texture per PICTURE PAINTER ADDITIONAL RECOMMENDATIONS: 1) Add Ensure Enlive BID w/ meals (350 kcal, 20g pro each) 2) Add snacks as tolerated in b/w meals 3) Replete lytes as needed (Low K 3.3) 4) maintain daily calibrated bed scale wts BMI now underweight 5) Consider Kcal count to evaluate po intake (7) Abnormal LFTs Assessment & Plan: elevated t bili ast/alt okay US ordered trend labs cont fluids will follow with resc. Liver: The liver is normal in size and echogenicity. No focal abnormalities are noted. Gallbladder: The gallbladder is normal. No stones are visualized. The wall is not thickened. Is no sonographic Galvan sign. Common bile duct: Normal in size. Pancreas: The visualized portion of pancreas is normal in echogenicity. There are no masses. Kidneys: The kidneys are normal in size and demonstrate cortical thinning. There is fullness of the right collecting system. There is a 2.2 cm parapelvic right renal cyst. There is a subcentimeter right midpole cyst. Prostate is within normal limits in volume. There is mild post void residual volume of 65 mL. Spleen: The spleen is normal in size and echogenicity. Additional findings: Images aorta is unremarkable. There is a large right pleural effusion. There is a large left pleural effusion. IMPRESSION: 1. Mildly atrophic kidneys. 2. Fullness of the right collecting system without sonographic evidence of obstructive process. 3. Mild post void residual volume of 65 mL. 4. Large bilateral pleural effusions. 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 loose bm soilage. patient not able to always states when. wash daily with NS. apply skin protectant turn q2h off load pressure monitor for incontinence and care appropriately thank you Mo Siegel Nov 04, 2020 15:36
[2020-11-04 16:00] VITALS: BP 142/80
[2020-11-04 20:00] VITALS: BP 146/71
[2020-11-05] VITALS: BP 115/44
[2020-11-05 04:00] VITALS: BP 136/80
[2020-11-05 08:00] VITALS: BP 103/61
[2020-11-05] MEDS: Metoprolol Tartrate 12.5mg TAB ORAL SCH ×2 (09:00→21:27)
[2020-11-05] MEDS: cefTRIAXone 1 GM in D5W 55 ML IVPB SCH (09:27)
[2020-11-05] MEDS: Amiodarone 200mg tab ORAL SCH (09:28)
[2020-11-05] MEDS: Enoxaparin 60mg Inj SUBQ SCH (09:29)
[2020-11-05] MEDS: dexAMETHasone 10mg/ml Inj IV SCH (09:29)
--- NOTE | 2020-11-05 10:54 | General Progress Note ---
Subjective ROS Limited/Unobtainable: No Constitutional: Reports: malaise, weakness HEENT: Reports: no symptoms Cardiovascular: Reports: no symptoms Respiratory: Reports: cough, shortness of breath Gastrointestinal/Abdominal: Reports: no symptoms Genitourinary: Reports: no symptoms Neurologic/Psychiatric: Reports: no symptoms Endocrine: Reports: no symptoms Hematologic/Lymphatic: Reports: no symptoms Allergies: Coded Allergies: No Known Allergies (Unverified , 09/16/20) Subjective no change. currently on venti mask. less anxious and agitated. no fevers. d/w RN. Objective Last 24 Hour Vital Signs Date Time Temp Pulse Resp B/P (MAP) Pulse Ox O2 Delivery O2 Flow Rate FiO2 11/05/20 09:00 58 126/51 11/05/20 08:00 98.8 60 18 103/61 (75) 95 11/05/20 04:00 97.3 94 20 136/80 (98) 99 11/05/20 04:00 54 11/05/20 00:00 97.5 65 17 115/44 (67) 99 11/05/20 00:00 53 11/04/20 21:00 Non-Rebreather 15.0 11/04/20 21:00 77 146/74 11/04/20 20:00 106 11/04/20 20:00 97.9 77 17 146/71 (96) 99 11/04/20 16:00 62 11/04/20 16:00 97.6 92 20 142/80 (100) 98 11/04/20 12:00 10.0 11/04/20 12:00 97.3 81 21 135/74 (94) 99 11/04/20 12:00 Non-Rebreather 15.0 11/04/20 12:00 83 11/04/20 11:01 80 171/88 11/04/20 10:57 98 Venturi Mask 10.0 50 Intake and Output 11/04/20 11/05/20 19:00 07:00 Intake Total 240 ml 240 ml Output Total 1200 ml 1000 ml Balance -960 ml -760 ml Intake Oral 240 ml 240 ml Output Urine Total 1200 ml 1000 ml # Voids 1 Height (Feet): 5 Height (Inches): 6.00 Weight (Pounds): 145 Objective General Appearance: WD/WN, alert EENT: normal ENT inspection Neck: normal alignment Cardiovascular: normal peripheral pulses Respiratory/Chest: chest wall non-tender, lungs clear, normal breath sounds Abdomen: normal bowel sounds, non tender, soft, no organomegaly Edema: no edema noted Arm (L), no edema noted Arm (R), no edema noted Leg (L), no edema noted Leg (R) Neurologic: alert, responsive Skin: normal pigmentation Assessment/Plan Problem List: (1) COVID-19 virus detected ICD Codes: U07.1 - COVID-19 SNOMED: 1657885997606742 (2) NSTEMI (non-ST elevated myocardial infarction) ICD Codes: I21.4 - Non-ST elevation (NSTEMI) myocardial infarction SNOMED: 69861258 (3) Hypoxia ICD Codes: R09.02 - Hypoxemia SNOMED: 410300410 (4) CHF (congestive heart failure) ICD Codes: I50.9 - Heart failure, unspecified SNOMED: 87585186 Qualifiers: Qualified Codes: I50.9 - Heart failure, unspecified (5) Respiratory distress ICD Codes: R06.03 - Acute respiratory distress SNOMED: 178452813 (6) Pneumonia due to COVID-19 virus ICD Codes: U07.1 - COVID-19; J12.89 - Other viral pneumonia SNOMED: 524271816670260735 (7) Shortness of breath ICD Codes: R06.02 - Shortness of breath SNOMED: 845051862 Status: stable, progressing Assessment/Plan: cont current rx iv steroids s/p ivermectin resp care o2 dvt/stress ulcer prophylaxis swallow eval monitor cxr and abg diuresis anxiolytics o2 as needed guarded Donnell Pedersen MD Nov 05, 2020 10:54
[2020-11-05 12:00] VITALS: BP 120/56
--- NOTE | 2020-11-05 13:19 | Surgery Progress Note ---
Surgery Progress Note Subjective Additional Comments afebrile, HD stable, labs stable comfortable no complaints Objective Last 24 Hour Vital Signs Date Time Temp Pulse Resp B/P (MAP) Pulse Ox O2 Delivery O2 Flow Rate FiO2 11/05/20 12:00 97.5 69 20 120/56 (77) 98 11/05/20 09:00 Venturi Mask 10.0 11/05/20 09:00 58 126/51 11/05/20 08:00 98.8 60 18 103/61 (75) 95 11/05/20 08:00 71 11/05/20 04:00 97.3 94 20 136/80 (98) 99 11/05/20 04:00 54 11/05/20 00:00 97.5 65 17 115/44 (67) 99 11/05/20 00:00 53 11/04/20 21:00 Non-Rebreather 15.0 11/04/20 21:00 77 146/74 11/04/20 20:00 106 11/04/20 20:00 97.9 77 17 146/71 (96) 99 11/04/20 16:00 62 11/04/20 16:00 97.6 92 20 142/80 (100) 98 I&O Intake and Output 11/04/20 11/05/20 19:00 07:00 Intake Total 240 ml 240 ml Output Total 1200 ml 1000 ml Balance -960 ml -760 ml Intake Oral 240 ml 240 ml Output Urine Total 1200 ml 1000 ml # Voids 1 Dressing: saturated Cardiovascular: RSR Respiratory: decreased breath sounds Abdomen: non-tender, present bowel sounds, non-distended Extremities: no tenderness, no cyanosis Plan Problems: (1) Respiratory distress (2) CHF (congestive heart failure) (3) Hypoxia (4) NSTEMI (non-ST elevated myocardial infarction) (5) COVID-19 virus detected Assessment & Plan: ++ as per pulm and id (6) Shortness of breath (7) Malnutrition (8) Weakness (9) Elevated troponin (10) Abnormal LFTs Assessment & Plan: ast/alt alk phos elevated no cici hold US trend labs exam benign (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 CURRENT DIET: Cardiac ms ground PO DIET RECOMMENDATIONS: Low Na diet/ texture per MANAGEMENT ARCHITECT ADDITIONAL RECOMMENDATIONS: 1) Add Ensure Enlive BID w/ meals (350 kcal, 20g pro each) 2) Add snacks as tolerated in b/w meals 3) Replete lytes as needed (Low K 3.3) 4) maintain daily calibrated bed scale wts BMI now underweight 5) Consider Kcal count to evaluate po intake (7) Abnormal LFTs Assessment & Plan: elevated t bili ast/alt okay US ordered trend labs cont fluids will follow with resc. Liver: The liver is normal in size and echogenicity. No focal abnormalities are noted. Gallbladder: The gallbladder is normal. No stones are visualized. The wall is not thickened. Is no sonographic Galvan sign. Common bile duct: Normal in size. Pancreas: The visualized portion of pancreas is normal in echogenicity. There are no masses. Kidneys: The kidneys are normal in size and demonstrate cortical thinning. There is fullness of the right collecting system. There is a 2.2 cm parapelvic right renal cyst. There is a subcentimeter right midpole cyst. Prostate is within normal limits in volume. There is mild post void residual volume of 65 mL. Spleen: The spleen is normal in size and echogenicity. Additional findings: Images aorta is unremarkable. There is a large right pleural effusion. There is a large left pleural effusion. IMPRESSION: 1. Mildly atrophic kidneys. 2. Fullness of the right collecting system without sonographic evidence of obstructive process. 3. Mild post void residual volume of 65 mL. 4. Large bilateral pleural effusions. 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 loose bm soilage. patient not able to always states when. wash daily with NS. apply skin protectant turn q2h off load pressure monitor for incontinence and care appropriately thank you Mo Siegel Nov 05, 2020 13:19
--- NOTE | 2020-11-05 15:23 | Pulmonology Progress Note ---
Subjective ROS Limited/Unobtainable: No Interval Events: now on 10L Venturi mask Constitutional: Reports: other - doing better, transferred from [facility] to telem etry HEENT: Repors: no symptoms Respiratory: Reports: no symptoms Cardiovascular: Reports: no symptoms Gastrointestinal/Abdominal: Reports: no symptoms Allergies: Coded Allergies: No Known Allergies (Unverified , 09/16/20) All Systems: reviewed and negative except above Objective Last 24 Hour Vital Signs Date Time Temp Pulse Resp B/P (MAP) Pulse Ox O2 Delivery O2 Flow Rate FiO2 11/05/20 12:00 63 11/05/20 12:00 97.5 69 20 120/56 (77) 98 11/05/20 09:00 Venturi Mask 10.0 11/05/20 09:00 58 126/51 11/05/20 08:00 98.8 60 18 103/61 (75) 95 11/05/20 08:00 71 11/05/20 04:00 97.3 94 20 136/80 (98) 99 11/05/20 04:00 54 11/05/20 00:00 97.5 65 17 115/44 (67) 99 11/05/20 00:00 53 11/04/20 21:00 Non-Rebreather 15.0 11/04/20 21:00 77 146/74 11/04/20 20:00 106 11/04/20 20:00 97.9 77 17 146/71 (96) 99 11/04/20 16:00 62 11/04/20 16:00 97.6 92 20 142/80 (100) 98 Intake and Output 11/04/20 11/05/20 19:00 07:00 Intake Total 240 ml 240 ml Output Total 1200 ml 1000 ml Balance -960 ml -760 ml Intake Oral 240 ml 240 ml Output Urine Total 1200 ml 1000 ml # Voids 1 Objective now on 10L Venturi mask General Appearance: no acute distress HEENT: normocephalic Respiratory: chest wall non-tender, decreased breath sounds Cardiovascular: normal peripheral pulses Abdomen: normal bowel sounds Extremities: no cyanosis Current Medications Medications (Trade) Dose Ordered Sig/Lucille Route PRN Reason Start Time Stop Time Status Last Admin Dose Admin Acetaminophen (Tylenol) 650 mg Q4H PRN RECTAL Mild Pain (Pain Scale 1-3) 11/01/20 08:30 12/01/20 08:29 Acetaminophen (Tylenol) 650 mg Q6H PRN ORAL For Headache 11/01/20 08:30 12/01/20 08:29 Amiodarone HCl (Cordarone) 200 mg DAILY ORAL 11/01/20 09:00 01/30/21 08:59 11/05/20 09:28 Barium Sulfate (Varibar Honey) 250 ml NOW PRN MC RAD 11/02/20 16:15 11/05/20 16:14 Barium Sulfate (Varibar Enlow) 240 ml NOW PRN MC RAD 11/02/20 16:15 11/05/20 16:14 Barium Sulfate (Varibar Pudding) 230 ml NOW PRN MC RAD 11/02/20 16:15 11/05/20 16:14 Barium Sulfate (Varibar Thin Liquid powder) 148 gm NOW PRN RAD 11/02/20 16:15 11/05/20 16:14 Ceftriaxone Sodium 1 gm/ Dextrose 55 ml @ 110 mls/hr Q24H IVPB 11/01/20 09:00 11/08/20 08:59 11/05/20 09:27 Clonidine HCl (Catapres Tab) 0.1 mg Q4H PRN ORAL SBP above 150 11/01/20 08:30 01/30/21 08:29 Dexamethasone Sodium Phosphate (Decadron 10mg/ ml Inj) 6 mg DAILY IV 11/02/20 09:00 11/10/20 09:01 11/05/20 09:29 Enoxaparin Sodium (Lovenox) 60 mg DAILY SUBQ 11/01/20 09:00 01/30/21 08:59 11/05/20 09:29 Furosemide (Lasix) 40 mg EVERY 12 HOURS IV 11/02/20 13:30 12/02/20 13:29 11/05/20 09:28 Lorazepam (Ativan 2mg/ml 1ml) 1 mg Q4H PRN IV For Anxiety 11/02/20 00:15 11/09/20 00:14 11/04/20 00:15 Metoprolol Tartrate (Lopressor) 12.5 mg Q12HR ORAL 11/01/20 09:00 01/30/21 08:59 11/04/20 21:00 Pantoprazole (Protonix) 40 mg ACBREAKFAST ORAL 11/01/20 09:00 12/01/20 08:59 11/05/20 06:30 Quetiapine Fumarate (SEROqueL) 25 mg Q12HR ORAL 11/04/20 12:30 12/19/20 12:29 11/05/20 10:10 Assessment/Plan Assessment/Plan 1. COVID-19 pneumonia. - on Decadron - saturating at 10L Venturi mask; weaned off NRBM yesterday - Will transition to nasal O2/supplemental oxygen as tolerated. - ABG improved 2. Pulmonary edema. - Will dc fluids - Will diurese 3. History of CHF. 4. Multi-infarct dementia. 5. Hypertension. DVT ppx - On lovenox Urinary pathogen E. Coli - on ceftriaxone The care for this patient was discussed with my supervising physician Time spent for this case was approximately 31 minutes Gagan Montilla Nov 05, 2020 15:23
[2020-11-05 16:00] VITALS: BP 140/55
[2020-11-05 20:00] VITALS: BP 139/62
[2020-11-06] VITALS: BP 132/57
[2020-11-06 04:00] VITALS: BP 134/55
[2020-11-06 08:00] VITALS: BP 136/59
[2020-11-06] MEDS: dexAMETHasone 10mg/ml Inj IV SCH (09:03)
[2020-11-06] MEDS: Metoprolol Tartrate 12.5mg TAB ORAL SCH ×2 (09:04→21:00)
[2020-11-06] MEDS: Amiodarone 200mg tab ORAL SCH (09:05)
[2020-11-06] MEDS: Enoxaparin 60mg Inj SUBQ SCH (09:08)
[2020-11-06] MEDS: cefTRIAXone 1 GM in D5W 55 ML IVPB SCH (09:09)
--- NOTE | 2020-11-06 10:12 | Pulmonology Progress Note ---
Subjective ROS Limited/Unobtainable: No Interval Events: none major overnight per nursing Constitutional: Reports: other - doing better, transferred from [facility] to telemetry HEENT: Repors: no symptoms Respiratory: Reports: no symptoms Cardiovascular: Reports: no symptoms Gastrointestinal/Abdominal: Reports: no symptoms Allergies: Coded Allergies: No Known Allergies (Unverified , 09/16/20) All Systems: reviewed and negative except above Objective Last 24 Hour Vital Signs Date Time Temp Pulse Resp B/P (MAP) Pulse Ox O2 Delivery O2 Flow Rate FiO2 11/06/20 09:04 70 136/59 11/06/20 04:00 97.9 75 18 134/55 (81) 98 11/06/20 04:00 75 11/06/20 00:00 52 11/06/20 00:00 97.4 52 17 132/57 (82) 98 11/05/20 21:27 73 139/62 11/05/20 21:00 Nasal Cannula 4.0 11/05/20 20:00 97.6 73 18 139/62 (87) 99 11/05/20 20:00 52 11/05/20 19:00 95 Nasal Cannula 4.0 36 11/05/20 17:41 Nasal Cannula 4.0 11/05/20 16:00 53 11/05/20 16:00 97.5 79 21 140/55 (83) 98 11/05/20 12:00 63 11/05/20 12:00 97.5 69 20 120/56 (77) 98 Intake and Output 11/05/20 11/06/20 19:00 07:00 Intake Total 300 ml Output Total 900 ml Balance 300 ml -900 ml Intake Oral 300 ml Output Urine Total 900 ml # Voids 1 Objective now on 4L NC saturating at 97% General Appearance: no acute distress HEENT: normocephalic Respiratory: chest wall non-tender, decreased breath sounds Cardiovascular: normal peripheral pulses Abdomen: normal bowel sounds Extremities: no cyanosis Current Medications Medications (Trade) Dose Ordered Sig/Lucille Route PRN Reason Start Time Stop Time Status Last Admin Dose Admin Acetaminophen (Tylenol) 650 mg Q4H PRN RECTAL Mild Pain (Pain Scale 1-3) 11/01/20 08:30 12/01/20 08:29 Acetaminophen (Tylenol) 650 mg Q6H PRN ORAL For Headache 11/01/20 08:30 12/01/20 08:29 Amiodarone HCl (Cordarone) 200 mg DAILY ORAL 11/01/20 09:00 01/30/21 08:59 11/06/20 09:05 Ceftriaxone Sodium 1 gm/ Dextrose 55 ml @ 110 mls/hr Q24H IVPB 11/01/20 09:00 11/08/20 08:59 11/06/20 09:09 Clonidine HCl (Catapres Tab) 0.1 mg Q4H PRN ORAL SBP above 150 11/01/20 08:30 01/30/21 08:29 Dexamethasone Sodium Phosphate (Decadron 10mg/ ml Inj) 6 mg DAILY IV 11/02/20 09:00 11/10/20 09:01 11/06/20 09:03 Enoxaparin Sodium (Lovenox) 60 mg DAILY SUBQ 11/01/20 09:00 01/30/21 08:59 11/06/20 09:08 Furosemide (Lasix) 40 mg EVERY 12 HOURS IV 11/02/20 13:30 12/02/20 13:29 11/06/20 09:03 Lorazepam (Ativan 2mg/ml 1ml) 1 mg Q4H PRN IV For Anxiety 11/02/20 00:15 11/09/20 00:14 11/04/20 00:15 Metoprolol Tartrate (Lopressor) 12.5 mg Q12HR ORAL 11/01/20 09:00 01/30/21 08:59 11/06/20 09:04 Pantoprazole (Protonix) 40 mg ACBREAKFAST ORAL 11/01/20 09:00 12/01/20 08:59 11/06/20 06:05 Quetiapine Fumarate (SEROqueL) 25 mg Q12HR ORAL 11/04/20 12:30 12/19/20 12:29 11/06/20 09:22 Assessment/Plan Assessment/Plan 1. COVID-19 pneumonia. - on Decadron (11/02-) - saturating at 97% on 4L NC; weaned off 10L Venturi mask yesterday - wean down further as tolerated - ABG improved 2. Pulmonary edema. - Will dc fluids - Will diurese 3. History of CHF. 4. Multi-infarct dementia. 5. Hypertension. DVT ppx - On lovenox Urinary pathogen E. Coli - on ceftriaxone The care for this patient was discussed with my supervising physician Time spent for this case was approximately 31 minutes Gagan Montilla Nov 06, 2020 10:12
[2020-11-06 12:00] VITALS: BP 125/55
--- NOTE | 2020-11-06 13:02 | Surgery Progress Note ---
Surgery Progress Note Subjective Symptoms: improved, tolerating diet, voiding well, passing flatus, BM Additional Comments states abd discomfort improved since last bm Objective Last 24 Hour Vital Signs Date Time Temp Pulse Resp B/P (MAP) Pulse Ox O2 Delivery O2 Flow Rate FiO2 11/06/20 12:00 97.5 84 18 125/55 (78) 97 11/06/20 12:00 63 11/06/20 09:04 70 136/59 11/06/20 09:00 Nasal Cannula 4.0 11/06/20 08:00 76 11/06/20 08:00 97.7 70 20 136/59 (84) 96 11/06/20 04:00 97.9 75 18 134/55 (81) 98 11/06/20 04:00 75 11/06/20 00:00 52 11/06/20 00:00 97.4 52 17 132/57 (82) 98 11/05/20 21:27 73 139/62 11/05/20 21:00 Nasal Cannula 4.0 11/05/20 20:00 97.6 73 18 139/62 (87) 99 11/05/20 20:00 52 11/05/20 19:00 95 Nasal Cannula 4.0 36 11/05/20 17:41 Nasal Cannula 4.0 11/05/20 16:00 53 11/05/20 16:00 97.5 79 21 140/55 (83) 98 I&O Intake and Output 11/05/20 11/06/20 19:00 07:00 Intake Total 300 ml Output Total 900 ml Balance 300 ml -900 ml Intake Oral 300 ml Output Urine Total 900 ml # Voids 1 Cardiovascular: RSR Respiratory: clear Abdomen: soft, flat, non-tender, present bowel sounds, non-distended Extremities: no tenderness, no cyanosis Plan Problems: (1) Respiratory distress (2) CHF (congestive heart failure) (3) Hypoxia (4) NSTEMI (non-ST elevated myocardial infarction) (5) COVID-19 virus detected Assessment & Plan: ++ as per pulm and id (6) Shortness of breath (7) Malnutrition (8) Weakness (9) Elevated troponin (10) Abnormal LFTs Assessment & Plan: ast/alt alk phos elevated no cici hold US trend labs exam benign (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 CURRENT DIET: Cardiac ms ground PO DIET RECOMMENDATIONS: Low Na diet/ texture per SCHOOL ADMINISTRATOR ADDITIONAL RECOMMENDATIONS: 1) Add Ensure Enlive BID w/ meals (350 kcal, 20g pro each) 2) Add snacks as tolerated in b/w meals 3) Replete lytes as needed (Low K 3.3) 4) maintain daily calibrated bed scale wts BMI now underweight 5) Consider Kcal count to evaluate po intake (7) Abnormal LFTs Assessment & Plan: elevated t bili ast/alt okay US ordered trend labs cont fluids will follow with resc. Liver: The liver is normal in size and echogenicity. No focal abnormalities are noted. Gallbladder: The gallbladder is normal. No stones are visualized. The wall is not thickened. Is no sonographic Galvan sign. Common bile duct: Normal in size. Pancreas: The visualized portion of pancreas is normal in echogenicity. There are no masses. Kidneys: The kidneys are normal in size and demonstrate cortical thinning. There is fullness of the right collecting system. There is a 2.2 cm parapelvic right re nal cyst. There is a subcentimeter right midpole cyst. Prostate is within normal limits in volume. There is mild post void residual volume of 65 mL. Spleen: The spleen is normal in size and echogenicity. Additional findings: Images aorta is unremarkable. There is a large right pleural effusion. There is a large left pleural effusion. IMPRESSION: 1. Mildly atrophic kidneys. 2. Fullness of the right collecting system without sonographic evidence of obstructive process. 3. Mild post void residual volume of 65 mL. 4. Large bilateral pleural effusions. 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 loose bm soilage. patient not able to always states when. wash daily with NS. apply skin protectant turn q2h off load pressure monitor for incontinence and care appropriately thank you Mo Siegel Nov 06, 2020 13:02
--- NOTE | 2020-11-06 14:03 | General Progress Note ---
Subjective ROS Limited/Unobtainable: No Constitutional: Reports: malaise, weakness HEENT: Reports: no symptoms Cardiovascular: Reports: no symptoms Respiratory: Reports: cough Gastrointestinal/Abdominal: Reports: no symptoms Genitourinary: Reports: no symptoms Neurologic/Psychiatric: Reports: no symptoms Endocrine: Reports: no symptoms Hematologic/Lymphatic: Reports: no symptoms Allergies: Coded Allergies: No Known Allergies (Unverified , 09/16/20) All Systems: reviewed and negative except above Subjective no change. improved. decreased o2 requirements. currently on nasal cannula. less anxious and agitated. no fevers. d/w RN. Objective Last 24 Hour Vital Signs Date Time Temp Pulse Resp B/P (MAP) Pulse Ox O2 Delivery O2 Flow Rate FiO2 11/06/20 12:00 97.5 84 18 125/55 (78) 97 11/06/20 12:00 63 11/06/20 09:04 70 136/59 11/06/20 09:00 Nasal Cannula 4.0 11/06/20 08:00 76 11/06/20 08:00 97.7 70 20 136/59 (84) 96 11/06/20 04:00 97.9 75 18 134/55 (81) 98 11/06/20 04:00 75 11/06/20 00:00 52 11/06/20 00:00 97.4 52 17 132/57 (82) 98 11/05/20 21:27 73 139/62 11/05/20 21:00 Nasal Cannula 4.0 11/05/20 20:00 97.6 73 18 139/62 (87) 99 11/05/20 20:00 52 11/05/20 19:00 95 Nasal Cannula 4.0 36 11/05/20 17:41 Nasal Cannula 4.0 11/05/20 16:00 53 11/05/20 16:00 97.5 79 21 140/55 (83) 98 Intake and Output 11/05/20 11/06/20 19:00 07:00 Intake Total 300 ml Output Total 900 ml Balance 300 ml -900 ml Intake Oral 300 ml Output Urine Total 900 ml # Voids 1 Height (Feet): 5 Height (Inches): 6.00 Weight (Pounds): 145 Objective General Appearance: WD/WN, alert EENT: normal ENT inspection Neck: normal alignment Cardiovascular: normal peripheral pulses Respiratory/Chest: chest wall non-tender, lungs clear, normal breath sounds Abdomen: normal bowel sounds, non tender, soft, no organomegaly Edema: no edema noted Arm (L), no edema noted Arm (R), no edema noted Leg (L), no edema noted Leg (R) Neurologic: alert, responsive Skin: normal pigmentation Assessment/Plan Problem List: (1) COVID-19 virus detected ICD Codes: U07.1 - COVID-19 SNOMED: 4973250345493580 (2) NSTEMI (non-ST elevated myocardial infarction) ICD Codes: I21.4 - Non-ST elevation (NSTEMI) myocardial infarction SNOMED: 85449224 (3) Hypoxia ICD Codes: R09.02 - Hypoxemia SNOMED: 473359533 (4) CHF (congestive heart failure) ICD Codes: I50.9 - Heart failure, unspecified SNOMED: 10606707 Qualifiers: Qualified Codes: I50.9 - Heart failure, unspecified (5) Respiratory distress ICD Codes: R06.03 - Acute respiratory distress SNOMED: 781149182 (6) Pneumonia due to COVID-19 virus ICD Codes: U07.1 - COVID-19; J12.89 - Other viral pneumonia SNOMED: 818994675053591312 (7) Shortness of breath ICD Codes: R06.02 - Shortness of breath SNOMED: 438865291 Status: stable, progressing Assessment/Plan: cont current rx iv steroids s/p ivermectin resp care o2 dvt/stress ulcer prophylaxis swallow eval monitor cxr and abg diuresis anxiolytics o2 as needed guarded Donnell Pedersen MD Nov 06, 2020 14:03
--- NOTE | 2020-11-06 15:59 | Infectious Diseases Prog Note ---
Assessment/Plan Assessment/Plan antibiotics : ceftriaxone A 1. covid 19 pneumonia improving on 4 liters O2, saturation 98 % s/p ivermectin 2. e.coli UTI 3. CHF 4. dementia 5. atrial fibrillation P 1. continue dexamethasone day 6 2. continue ceftriaxone 2 more days 3. continue isolation Subjective ROS Limited/Unobtainable: Yes Allergies: Coded Allergies: No Known Allergies (Unverified , 09/16/20) Objective Last 24 Hour Vital Signs Date Time Temp Pulse Resp B/P (MAP) Pulse Ox O2 Delivery O2 Flow Rate FiO2 11/06/20 12:00 97.5 84 18 125/55 (78) 97 11/06/20 12:00 63 11/06/20 09:04 70 136/59 11/06/20 09:00 Nasal Cannula 4.0 11/06/20 08:00 76 11/06/20 08:00 97.7 70 20 136/59 (84) 96 11/06/20 04:00 97.9 75 18 134/55 (81) 98 11/06/20 04:00 75 11/06/20 00:00 52 11/06/20 00:00 97.4 52 17 132/57 (82) 98 11/05/20 21:27 73 139/62 11/05/20 21:00 Nasal Cannula 4.0 11/05/20 20:00 97.6 73 18 139/62 (87) 99 11/05/20 20:00 52 11/05/20 19:00 95 Nasal Cannula 4.0 36 11/05/20 17:41 Nasal Cannula 4.0 11/05/20 16:00 53 11/05/20 16:00 97.5 79 21 140/55 (83) 98 Height (Feet): 5 Height (Inches): 6.00 Weight (Pounds): 145 Current Medications Medications (Trade) Dose Ordered Sig/Lucille Route PRN Reason Start Time Stop Time Status Last Admin Dose Admin Acetaminophen (Tylenol) 650 mg Q4H PRN RECTAL Mild Pain (Pain Scale 1-3) 11/01/20 08:30 12/01/20 08:29 Acetaminophen (Tylenol) 650 mg Q6H PRN ORAL For Headache 11/01/20 08:30 12/01/20 08:29 Amiodarone HCl (Cordarone) 200 mg DAILY ORAL 11/01/20 09:00 01/30/21 08:59 11/06/20 09:05 Ceftriaxone Sodium 1 gm/ Dextrose 55 ml @ 110 mls/hr Q24H IVPB 11/01/20 09:00 11/08/20 08:59 11/06/20 09:09 Clonidine HCl (Catapres Tab) 0.1 mg Q4H PRN ORAL SBP above 150 11/01/20 08:30 01/30/21 08:29 Dexamethasone Sodium Phosphate (Decadron 10mg/ ml Inj) 6 mg DAILY IV 11/02/20 09:00 11/10/20 09:01 11/06/20 09:03 Enoxaparin Sodium (Lovenox) 60 mg DAILY SUBQ 11/01/20 09:00 01/30/21 08:59 11/06/20 09:08 Furosemide (Lasix) 40 mg EVERY 12 HOURS IV 11/02/20 13:30 12/02/20 13:29 11/06/20 09:03 Lorazepam (Ativan 2mg/ml 1ml) 1 mg Q4H PRN IV For Anxiety 11/02/20 00:15 11/09/20 00:14 11/04/20 00:15 Metoprolol Tartrate (Lopressor) 12.5 mg Q12HR ORAL 11/01/20 09:00 01/30/21 08:59 11/06/20 09:04 Pantoprazole (Protonix) 40 mg ACBREAKFAST ORAL 11/01/20 09:00 12/01/20 08:59 11/06/20 06:05 Quetiapine Fumarate (SEROqueL) 25 mg Q12HR ORAL 11/04/20 12:30 12/19/20 12:29 11/06/20 09:22 Coretta Garcia MD Nov 06, 2020 15:59
[2020-11-06 16:00] VITALS: BP 132/75
[2020-11-06 20:00] VITALS: BP 137/50
[2020-11-07] VITALS: BP 140/65
--- NOTE | 2020-11-07 02:34 | Cardiology Progress Note ---
Subjective DATE OF SERVICE: Nov 06, 2019 On O2 by nasal cannula Less SOB and congestion Monitor: sinus/sinus bradycardia with atrial ectopy Objective Last 24 Hour Vital Signs Date Time Temp Pulse Resp B/P (MAP) Pulse Ox O2 Delivery O2 Flow Rate FiO2 11/07/20 00:00 97.7 70 20 140/65 (90) 98 11/07/20 00:00 76 11/06/20 21:00 Nasal Cannula 4.0 11/06/20 21:00 51 136/43 11/06/20 20:00 98.2 51 20 137/50 (79) 97 11/06/20 20:00 56 11/06/20 19:13 96 Nasal Cannula 4.0 36 11/06/20 16:00 97.7 48 20 132/75 (94) 96 11/06/20 16:00 76 11/06/20 12:00 97.5 84 18 125/55 (78) 97 11/06/20 12:00 63 11/06/20 09:04 70 136/59 11/06/20 09:00 Nasal Cannula 4.0 11/06/20 08:00 76 11/06/20 08:00 97.7 70 20 136/59 (84) 96 11/06/20 04:00 97.9 75 18 134/55 (81) 98 11/06/20 04:00 75 ROS: unchanged from 11/01/20 RHYTHM: NSR, SB, PACs LUNGS: bilateral rhonchi CARDIAC: regular rhythm, normal S1 and S2, bradycardia ABDOMEN: normal bowel sounds EXTREMITIES: no calf tenderness, No edema Assessment/Plan Assessment/Plan Covid19 PNA Hypoxia Acute respiratory failure Acute coronary syndr Acute/chronic systolic CHF Lactic acidosis Hypokalemia O2 Full anticoagulation Steroids Monitor volume status; trend BNP with diuresis prn. F/U CXR and labs. Replace lytes as needed Rey Katz MD Nov 07, 2020 02:34
[2020-11-07 04:00] VITALS: BP 140/51
[2020-11-07 07:53] LABS: HEMATOCRIT 36.8 % (42.0-52.0); HEMOGLOBIN 12.2 G/DL (14.2-18.0); MEAN CORPUSCULAR VOLUME 105 FL (80-99); PLATELET COUNT 234 K/UL (150-450); RED CELL DISTRIBUTION WIDTH 15.3 % (11.6-14.8); WHITE BLOOD COUNT 14.3 K/UL (4.8-10.8)
[2020-11-07 08:00] VITALS: BP 139/47
[2020-11-07 08:21] LABS: ANION GAP 1 mmol/L (5-15); BLOOD UREA NITROGEN 38 mg/dL (7-18); CALCIUM 8.4 MG/DL (8.5-10.1); CARBON DIOXIDE 40 MMOL/L (21-32); CHLORIDE 103 MMOL/L (98-107); CREATININE 0.8 MG/DL (0.55-1.30); POTASSIUM 2.8 MMOL/L (3.5-5.1); SODIUM 144 MMOL/L (136-145)
[2020-11-07] MEDS: cefTRIAXone 1 GM in D5W 55 ML IVPB SCH (09:26)
[2020-11-07] MEDS: Amiodarone 200mg tab ORAL SCH (09:27)
[2020-11-07] MEDS: Metoprolol Tartrate 12.5mg TAB ORAL SCH ×2 (09:27→21:41)
[2020-11-07] MEDS: Enoxaparin 60mg Inj SUBQ SCH (09:28)
[2020-11-07] MEDS: dexAMETHasone 10mg/ml Inj IV SCH (09:29)
--- NOTE | 2020-11-07 10:09 | Pulmonology Progress Note ---
Subjective ROS Limited/Unobtainable: Yes Interval Events: none major overnight per nursing Constitutional: Reports: other - doing better, transferred from [facility] to telemetry HEENT: Repors: no symptoms Respiratory: Reports: no symptoms Cardiovascular: Reports: no symptoms Gastrointestinal/Abdominal: Reports: no symptoms Allergies: Coded Allergies: No Known Allergies (Unverified , 09/16/20) All Systems: reviewed and negative except above Objective Last 24 Hour Vital Signs Date Time Temp Pulse Resp B/P (MAP) Pulse Ox O2 Delivery O2 Flow Rate FiO2 11/07/20 09:27 56 139/47 11/07/20 08:09 97 Nasal Cannula 4.0 36 11/07/20 08:00 96.3 56 20 139/47 (77) 97 11/07/20 04:00 97.3 60 20 140/51 (80) 97 11/07/20 04:00 74 11/07/20 00:00 97.7 70 20 140/65 (90) 98 11/07/20 00:00 76 11/06/20 21:00 Nasal Cannula 4.0 11/06/20 21:00 51 136/43 11/06/20 20:00 98.2 51 20 137/50 (79) 97 11/06/20 20:00 56 11/06/20 19:13 96 Nasal Cannula 4.0 36 11/06/20 16:00 97.7 48 20 132/75 (94) 96 11/06/20 16:00 76 11/06/20 12:00 97.5 84 18 125/55 (78) 97 11/06/20 12:00 63 Intake and Output 11/06/20 11/07/20 19:00 07:00 Intake Total 285 ml Output Total 1400 ml 500 ml Balance -1115 ml -500 ml Intake Oral 230 ml IV Total 55 ml Output Urine Total 1400 ml 500 ml Objective now on 2L NC saturating at 96% General Appearance: no acute distress HEENT: normocephalic Respiratory: chest wall non-tender, decreased breath sounds Cardiovascular: normal peripheral pulses Abdomen: normal bowel sounds Extremities: no cyanosis Laboratory Tests 11/07/20 05:59: White Blood Count 14.3H, Red Blood Count 3.50L, Hemoglobin 12.2L, Hematocrit 36.8L, Mean Corpuscular Volume 105H, Mean Corpuscular Hemoglobin 34.9H, Mean Corpuscular Hemoglobin Concent 33.2, Red Cell Distribution Width 15.3H, Platelet Count 234, Mean Platelet Volume 9.3, Neutrophils (%) (Auto) , Lymphocytes (%) (Auto) , Monocytes (%) (Auto) , Eosinophils (%) (Auto) , Basophils (%) (Auto) , Neutrophils % (Manual) [Pending], Lymphocytes % (Manual) [Pending], Platelet Estimate [Pending], Platelet Morphology [Pending], Sodium Level 144, Potassium Level 2.8L, Chloride Level 103, Carbon Dioxide Level 40H, Anion Gap 1L, Blood Urea Nitrogen 38H, Creatinine 0.8, Estimat Glomerular Filtration Rate > 60, Glucose Level 115H, Calcium Level 8.4L, Magnesium Level 2.4, Pro-B-Type Natriuretic Peptide 63073K Current Medications Medications (Trade) Dose Ordered Sig/Lucille Route PRN Reason Start Time Stop Time Status Last Admin Dose Admin Acetaminophen (Tylenol) 650 mg Q4H PRN RECTAL Mild Pain (Pain Scale 1-3) 11/01/20 08:30 12/01/20 08:29 Acetaminophen (Tylenol) 650 mg Q6H PRN ORAL For Headache 11/01/20 08:30 12/01/20 08:29 Amiodarone HCl (Cordarone) 200 mg DAILY ORAL 11/01/20 09:00 01/30/21 08:59 11/07/20 09:27 Ceftriaxone Sodium 1 gm/ Dextrose 55 ml @ 110 mls/hr Q24H IVPB 11/01/20 09:00 11/08/20 08:59 11/07/20 09:26 Clonidine HCl (Catapres Tab) 0.1 mg Q4H PRN ORAL SBP above 150 11/01/20 08:30 01/30/21 08:29 Dexamethasone Sodium Phosphate (Decadron 10mg/ ml Inj) 6 mg DAILY IV 11/02/20 09:00 11/10/20 09:01 11/07/20 09:29 Enoxaparin Sodium (Lovenox) 60 mg DAILY SUBQ 11/01/20 09:00 01/30/21 08:59 11/07/20 09:28 Furosemide (Lasix) 40 mg EVERY 12 HOURS IV 11/02/20 13:30 12/02/20 13:29 11/06/20 21:05 Lorazepam (Ativan 2mg/ml 1ml) 1 mg Q4H PRN IV For Anxiety 11/02/20 00:15 11/09/20 00:14 11/04/20 00:15 Metoprolol Tartrate (Lopressor) 12.5 mg Q12HR ORAL 11/01/20 09:00 01/30/21 08:59 11/07/20 09:27 Pantoprazole (Protonix) 40 mg ACBREAKFAST ORAL 11/01/20 09:00 12/01/20 08:59 11/07/20 05:32 Potassium Chloride (K-Dur) 40 meq ONCE ORAL 11/07/20 10:00 11/07/20 11:00 Quetiapine Fumarate (SEROqueL) 25 mg Q12HR ORAL 11/04/20 12:30 12/19/20 12:29 11/07/20 09:27 Assessment/Plan Assessment/Plan 1. COVID-19 pneumonia. - on Decadron (11/02-) - saturating at 96% on 2L NC - wean down further as tolerated - ABG improved 2. Pulmonary edema. - Will dc fluids - Will diurese 3. History of CHF. 4. Multi-infarct dementia. 5. Hypertension. 6. DVT ppx - On lovenox 7. Urinary pathogen E. Coli - on ceftriaxone 8. Hypokalemia - per primary MD The care for this patient was discussed with my supervising physician Time spent for this case was approximately 31 minutes Gagan Montilla Nov 07, 2020 10:09
[2020-11-07 12:00] VITALS: BP 130/67
--- NOTE | 2020-11-07 14:48 | Surgery Progress Note ---
Surgery Progress Note Subjective Additional Comments lasix held electrolytes being replated no n/v Objective Last 24 Hour Vital Signs Date Time Temp Pulse Resp B/P (MAP) Pulse Ox O2 Delivery O2 Flow Rate FiO2 11/07/20 09:27 56 139/47 11/07/20 09:00 Nasal Cannula 4.0 11/07/20 08:09 97 Nasal Cannula 4.0 36 11/07/20 08:00 56 11/07/20 08:00 96.3 56 20 139/47 (77) 97 11/07/20 04:00 97.3 60 20 140/51 (80) 97 11/07/20 04:00 74 11/07/20 00:00 97.7 70 20 140/65 (90) 98 11/07/20 00:00 76 11/06/20 21:00 Nasal Cannula 4.0 11/06/20 21:00 51 136/43 11/06/20 20:00 98.2 51 20 137/50 (79) 97 11/06/20 20:00 56 11/06/20 19:13 96 Nasal Cannula 4.0 36 11/06/20 16:00 97.7 48 20 132/75 (94) 96 11/06/20 16:00 76 I&O Intake and Output 11/06/20 11/07/20 19:00 07:00 Intake Total 285 ml Output Total 1400 ml 500 ml Balance -1115 ml -500 ml Intake Oral 230 ml IV Total 55 ml Output Urine Total 1400 ml 500 ml Dressing: saturated Cardiovascular: RSR Respiratory: decreased breath sounds Abdomen: soft, non-tender, present bowel sounds, non-distended Extremities: no edema, no tenderness Laboratory Tests Test 11/07/20 05:59 White Blood Count 14.3 K/UL (4.8-10.8) H Red Blood Count 3.50 M/UL (4.70-6.10) L Hemoglobin 12.2 G/DL (14.2-18.0) L Hematocrit 36.8 % (42.0-52.0) L Mean Corpuscular Volume 105 FL (80-99) H Mean Corpuscular Hemoglobin 34.9 PG (27.0-31.0) H Mean Corpuscular Hemoglobin Concent 33.2 G/DL (32.0-36.0) Red Cell Distribution Width 15.3 % (11.6-14.8) H Platelet Count 234 K/UL (150-450) Mean Platelet Volume 9.3 FL (6.5-10.1) Neutrophils (%) (Auto) % (45.0-75.0) Lymphocytes (%) (Auto) % (20.0-45.0) Monocytes (%) (Auto) % (1.0-10.0) Eosinophils (%) (Auto) % (0.0-3.0) Basophils (%) (Auto) % (0.0-2.0) Differential Total Cells Counted 100 Neutrophils % (Manual) 92 % (45-75) H Lymphocytes % (Manual) 5 % (20-45) L Monocytes % (Manual) 3 % (1-10) Eosinophils % (Manual) 0 % (0-3) Basophils % (Manual) 0 % (0-2) Band Neutrophils 0 % (0-8) Platelet Estimate Adequate Platelet Morphology Normal Anisocytosis 1+ Macrocytosis 1+ Sodium Level 144 MMOL/L (136-145) Potassium Level 2.8 MMOL/L (3.5-5.1) L Chloride Level 103 MMOL/L (98-107) Carbon Dioxide Level 40 MMOL/L (21-32) H Anion Gap 1 mmol/L (5-15) L Blood Urea Nitrogen 38 mg/dL (7-18) H Creatinine 0.8 MG/DL (0.55-1.30) Estimat Glomerular Filtration Rate > 60 mL/min (>60) Glucose Level 115 MG/DL (74-106) H Calcium Level 8.4 MG/DL (8.5-10.1) L Magnesium Level 2.4 MG/DL (1.8-2.4) Pro-B-Type Natriuretic Peptide 07976 pg/mL (0-125) H Plan Problems: (1) Respiratory distress (2) CHF (congestive heart failure) (3) Hypoxia (4) NSTEMI (non-ST elevated myocardial infarction) (5) COVID-19 virus detected Assessment & Plan: ++ as per pulm and id (6) Shortness of breath (7) Malnutrition (8) Weakness (9) Elevated troponin (10) Abnormal LFTs Assessment & Plan: ast/alt alk phos elevated no cici hold US trend labs exam benign (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 CURRENT DIET: Cardiac ms ground PO DIET RECOMMENDATIONS: Low Na diet/ texture per BILLING CLERK ADDITIONAL RECOMMENDATIONS: 1) Add Ensure Enlive BID w/ meals (350 kcal, 20g pro each) 2) Add snacks as tolerated in b/w meals 3) Replete lytes as needed (Low K 3.3) 4) maintain daily calibrated bed scale wts BMI now underweight 5) Consider Kcal count to evaluate po intake (7) Abnormal LFTs Assessment & Plan: elevated t bili ast/alt okay US ordered trend labs cont fluids will follow with resc. Liver: The liver is normal in size and echogenicity. No focal abnormalities are noted. Gallbladder: The gallbladder is normal. No stones are visualized. The wall is not thickened. Is no sonographic Galvan sign. Common bile duct: Normal in size. Pancreas: The visualized portion of pancreas is normal in echogenicity. There are no masses. Kidneys: The kidneys are normal in size and demonstrate cortical thinning. There is fullness of the right collecting system. There is a 2.2 cm parapelvic right renal cyst. There is a subcentimeter right midpole cyst. Prostate is within normal limits in volume. There is mild post void residual volume of 65 mL. Spleen: The spleen is normal in size and echogenicity. Additional findings: Images aorta is unremarkable. There is a large right pleural effusion. There is a large left pleural effusion. IMPRESSION: 1. Mildly atrophic kidneys. 2. Fullness of the right collecting system without sonographic evidence of obstructive process. 3. Mild post void residual volume of 65 mL. 4. Large bilateral pleural effusions. 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 loose bm soilage. patient not able to always states when. wash daily with NS. apply skin protectant turn q2h off load pressure monitor for incontinence and care appropriately thank you Mo Siegel Nov 07, 2020 14:47
--- NOTE | 2020-11-07 15:59 | General Progress Note ---
Subjective ROS Limited/Unobtainable: No Constitutional: Reports: malaise, weakness HEENT: Reports: no symptoms Cardiovascular: Reports: no symptoms Respiratory: Reports: cough, shortness of breath Gastrointestinal/Abdominal: Reports: no symptoms Genitourinary: Reports: no symptoms Neurologic/Psychiatric: Reports: no symptoms Endocrine: Reports: no symptoms Hematologic/Lymphatic: Reports: no symptoms Allergies: Coded Allergies: No Known Allergies (Unverified , 09/16/20) All Systems: reviewed and negative except above Subjective no change. improved. decreased o2 requirements. currently on nasal cannula 4L. less anxious and agitated. more cooperative. no fevers. d/w RN. Objective Last 24 Hour Vital Signs Date Time Temp Pulse Resp B/P (MAP) Pulse Ox O2 Delivery O2 Flow Rate FiO2 11/07/20 09:27 56 139/47 11/07/20 09:00 Nasal Cannula 4.0 11/07/20 08:09 97 Nasal Cannula 4.0 36 11/07/20 08:00 56 11/07/20 08:00 96.3 56 20 139/47 (77) 97 11/07/20 04:00 97.3 60 20 140/51 (80) 97 11/07/20 04:00 74 11/07/20 00:00 97.7 70 20 140/65 (90) 98 11/07/20 00:00 76 11/06/20 21:00 Nasal Cannula 4.0 11/06/20 21:00 51 136/43 11/06/20 20:00 98.2 51 20 137/50 (79) 97 11/06/20 20:00 56 11/06/20 19:13 96 Nasal Cannula 4.0 36 11/06/20 16:00 97.7 48 20 132/75 (94) 96 11/06/20 16:00 76 Intake and Output 11/06/20 11/07/20 19:00 07:00 Intake Total 285 ml Output Total 1400 ml 500 ml Balance -1115 ml -500 ml Intake Oral 230 ml IV Total 55 ml Output Urine Total 1400 ml 500 ml Laboratory Tests 11/07/20 05:59: White Blood Count 14.3H, Red Blood Count 3.50L, Hemoglobin 12.2L, Hematocrit 36.8L, Mean Corpuscular Volume 105H, Mean Corpuscular Hemoglobin 34.9H, Mean Corpuscular Hemoglobin Concent 33.2, Red Cell Distribution Width 15.3H, Platelet Count 234, Mean Platelet Volume 9.3, Neutrophils (%) (Auto) , Lymphocytes (%) (Auto) , Monocytes (%) (Auto) , Eosinophils (%) (Auto) , Basophils (%) (Auto) , Differential Total Cells Counted 100, Neutrophils % (Manual) 92H, Lymphocytes % (Manual) 5L, Monocytes % (Manual) 3, Eosinophils % (Manual) 0, Basophils % (Manual) 0, Band Neutrophils 0, Platelet Estimate Adequate, Platelet Morphology Normal, Anisocytosis 1+, Macrocytosis 1+, Sodium Level 144, Potassium Level 2.8L , Chloride Level 103, Carbon Dioxide Level 40H, Anion Gap 1L, Blood Urea Nitrogen 38H, Creatinine 0.8, Estimat Glomerular Filtration Rate > 60, Glucose Level 115H, Calcium Level 8.4L, Magnesium Level 2.4, Pro-B-Type Natriuretic Peptide 92391K Height (Feet): 5 Height (Inches): 6.00 Weight (Pounds): 145 Objective General Appearance: WD/WN, alert EENT: normal ENT inspection Neck: normal alignment Cardiovascular: normal peripheral pulses Respiratory/Chest: chest wall non-tender, lungs clear, normal breath sounds Abdomen: normal bowel sounds, non tender, soft, no organomegaly Edema: no edema noted Arm (L), no edema noted Arm (R), no edema noted Leg (L), no edema noted Leg (R) Neurologic: alert, responsive Skin: normal pigmentation Assessment/Plan Problem List: (1) COVID-19 virus detected ICD Codes: U07.1 - COVID-19 SNOMED: 8754230712202415 (2) NSTEMI (non-ST elevated myocardial infarction) ICD Codes: I21.4 - Non-ST elevation (NSTEMI) myocardial infarction SNOMED: 55849982 (3) Hypoxia ICD Codes: R09.02 - Hypoxemia SNOMED: 547445689 (4) CHF (congestive heart failure) ICD Codes: I50.9 - Heart failure, unspecified SNOMED: 33415980 Qualifiers: Qualified Codes: I50.9 - Heart failure, unspecified (5) Respiratory distress ICD Codes: R06.03 - Acute respiratory distress SNOMED: 047397302 (6) Pneumonia due to COVID-19 virus ICD Codes: U07.1 - COVID-19; J12.89 - Other viral pneumonia SNOMED: 151758662620368776 (7) Shortness of breath ICD Codes: R06.02 - Shortness of breath SNOMED: 858384488 Status: stable, progressing Assessment/Plan: cont current rx iv steroids s/p ivermectin resp care o2 dvt/stress ulcer prophylaxis swallow eval monitor cxr and abg diuresis anxiolytics o2 as needed dvt/stress ulcer prophylaxis guarded Donnell Pedersen MD Nov 07, 2020 15:59
[2020-11-07 16:00] VITALS: BP 140/53
[2020-11-07 20:00] VITALS: BP 145/55
[2020-11-07] MEDS: LORazepam Inj 2mg/ml 1ml IV PRN (23:35)
[2020-11-08] VITALS: BP 138/57
--- NOTE | 2020-11-08 01:07 | Cardiology Progress Note ---
Subjective DATE OF SERVICE: Nov 07, 2020 On O2 by nasal cannula Less SOB and congestion Monitor: sinus/sinus bradycardia with atrial ectopy Low potassium noted Objective Last 24 Hour Vital Signs Date Time Temp Pulse Resp B/P (MAP) Pulse Ox O2 Delivery O2 Flow Rate FiO2 11/07/20 21:41 61 145/55 11/07/20 21:00 Nasal Cannula 4.0 11/07/20 20:00 61 11/07/20 20:00 97.9 61 19 145/55 (85) 95 11/07/20 19:46 96 Nasal Cannula 4.0 36 11/07/20 16:00 97.5 57 19 140/53 (82) 100 11/07/20 16:00 59 11/07/20 12:00 55 11/07/20 12:00 98.1 67 20 130/67 (88) 100 11/07/20 09:27 56 139/47 11/07/20 09:00 Nasal Cannula 4.0 11/07/20 08:09 97 Nasal Cannula 4.0 36 11/07/20 08:00 56 11/07/20 08:00 96.3 56 20 139/47 (77) 97 11/07/20 04:00 97.3 60 20 140/51 (80) 97 11/07/20 04:00 74 ROS: unchanged from 11/01/20 RHYTHM: NSR, SB, PACs LUNGS: bilateral rhonchi CARDIAC: regular rhythm, normal S1 and S2, bradycardia ABDOMEN: normal bowel sounds EXTREMITIES: no calf tenderness, No edema Laboratory Tests Test 11/07/20 05:59 White Blood Count 14.3 K/UL (4.8-10.8) H Red Blood Count 3.50 M/UL (4.70-6.10) L Hemoglobin 12.2 G/DL (14.2-18.0) L Hematocrit 36.8 % (42.0-52.0) L Mean Corpuscular Volume 105 FL (80-99) H Mean Corpuscular Hemoglobin 34.9 PG (27.0-31.0) H Mean Corpuscular Hemoglobin Concent 33.2 G/DL (32.0-36.0) Red Cell Distribution Width 15.3 % (11.6-14.8) H Platelet Count 234 K/UL (150-450) Mean Platelet Volume 9.3 FL (6.5-10.1) Neutrophils (%) (Auto) % (45.0-75.0) Lymphocytes (%) (Auto) % (20.0-45.0) Monocytes (%) (Auto) % (1.0-10.0) Eosinophils (%) (Auto) % (0.0-3.0) Basophils (%) (Auto) % (0.0-2.0) Differential Total Cells Counted 100 Neutrophils % (Manual) 92 % (45-75) H Lymphocytes % (Manual) 5 % (20-45) L Monocytes % (Manual) 3 % (1-10) Eosinophils % (Manual) 0 % (0-3) Basophils % (Manual) 0 % (0-2) Band Neutrophils 0 % (0-8) Platelet Estimate Adequate Platelet Morphology Normal Anisocytosis 1+ Macrocytosis 1+ Sodium Level 144 MMOL/L (136-145) Potassium Level 2.8 MMOL/L (3.5-5.1) L Chloride Level 103 MMOL/L (98-107) Carbon Dioxide Level 40 MMOL/L (21-32) H Anion Gap 1 mmol/L (5-15) L Blood Urea Nitrogen 38 mg/dL (7-18) H Creatinine 0.8 MG/DL (0.55-1.30) Estimat Glomerular Filtration Rate > 60 mL/min (>60) Glucose Level 115 MG/DL (74-106) H Calcium Level 8.4 MG/DL (8.5-10.1) L Magnesium Level 2.4 MG/DL (1.8-2.4) Pro-B-Type Natriuretic Peptide 54590 pg/mL (0-125) H Assessment/Plan Assessment/Plan Covid19 PNA Hypoxia Acute respiratory failure Acute coronary syndr Acute/chronic systolic CHF Lactic acidosis O2 Full anticoagulation Steroids Monitor volume status; trend BNP with diuresis prn. F/U CXR and labs. Potassium suppl Rey Katz MD Nov 08, 2020 01:07
[2020-11-08 04:00] VITALS: BP 151/59
[2020-11-08 08:00] VITALS: BP 133/57
[2020-11-08] MEDS: Amiodarone 200mg tab ORAL SCH ×2 (08:38→11:09)
[2020-11-08] MEDS: Enoxaparin 60mg Inj SUBQ SCH (08:38)
[2020-11-08] MEDS: dexAMETHasone 10mg/ml Inj IV SCH (08:39)
--- NOTE | 2020-11-08 09:23 | Pulmonology Progress Note ---
Subjective ROS Limited/Unobtainable: No Interval Events: none major overnight per nursing Constitutional: Reports: other - doing better, transferred from [facility] to telemetry HEENT: Repors: no symptoms Respiratory: Reports: no symptoms Cardiovascular: Reports: no symptoms Gastrointestinal/Abdominal: Reports: no symptoms Allergies: Coded Allergies: No Known Allergies (Unverified , 09/16/20) All Systems: reviewed and negative except above Objective Last 24 Hour Vital Signs Date Time Temp Pulse Resp B/P (MAP) Pulse Ox O2 Delivery O2 Flow Rate FiO2 11/08/20 04:00 97.1 68 18 151/59 (89) 95 11/08/20 04:00 59 11/08/20 00:00 97.1 69 19 138/57 (84) 99 11/08/20 00:00 87 11/07/20 21:41 61 145/55 11/07/20 21:00 Nasal Cannula 4.0 11/07/20 20:00 61 11/07/20 20:00 97.9 61 19 145/55 (85) 95 11/07/20 19:46 96 Nasal Cannula 4.0 36 11/07/20 16:00 97.5 57 19 140/53 (82) 100 11/07/20 16:00 59 11/07/20 12:00 55 11/07/20 12:00 98.1 67 20 130/67 (88) 100 11/07/20 09:27 56 139/47 Intake and Output 11/07/20 11/08/20 19:00 07:00 Intake Total 140 ml Output Total 1200 ml 1900 ml Balance -1060 ml -1900 ml Intake Oral 140 ml Output Urine Total 1200 ml 1900 ml # Voids 3 Objective now on RA saturating well General Appearance: no acute distress HEENT: normocephalic Respiratory: chest wall non-tender, decreased breath sounds Cardiovascular: normal peripheral pulses Abdomen: normal bowel sounds Extremities: no cyanosis Current Medications Medications (Trade) Dose Ordered Sig/Lucille Route PRN Reason Start Time Stop Time Status Last Admin Dose Admin Acetaminophen (Tylenol) 650 mg Q4H PRN RECTAL Mild Pain (Pain Scale 1-3) 11/01/20 08:30 12/01/20 08:29 Acetaminophen (Tylenol) 650 mg Q6H PRN ORAL For Headache 11/01/20 08:30 12/01/20 08:29 Amiodarone HCl (Cordarone) 200 mg DAILY ORAL 11/01/20 09:00 01/30/21 08:59 11/08/20 08:38 Clonidine HCl (Catapres Tab) 0.1 mg Q4H PRN ORAL SBP above 150 11/01/20 08:30 01/30/21 08:29 Dexamethasone Sodium Phosphate (Decadron 10mg/ ml Inj) 6 mg DAILY IV 11/02/20 09:00 11/10/20 09:01 11/08/20 08:39 Enoxaparin Sodium (Lovenox) 60 mg DAILY SUBQ 11/01/20 09:00 01/30/21 08:59 11/08/20 08:38 Furosemide (Lasix) 40 mg EVERY 12 HOURS IV 11/02/20 13:30 12/02/20 13:29 11/07/20 21:41 Lorazepam (Ativan 2mg/ml 1ml) 1 mg Q4H PRN IV For Anxiety 11/02/20 00:15 11/09/20 00:14 11/07/20 23:35 Metoprolol Tartrate (Lopressor) 12.5 mg Q12HR ORAL 11/01/20 09:00 01/30/21 08:59 11/07/20 21:41 Pantoprazole (Protonix) 40 mg ACBREAKFAST ORAL 11/01/20 09:00 12/01/20 08:59 11/08/20 06:26 Quetiapine Fumarate (SEROqueL) 25 mg Q12HR ORAL 11/04/20 12:30 12/19/20 12:29 11/08/20 08:38 Assessment/Plan Assessment/Plan 1. COVID-19 pneumonia. - on Decadron (11/02-) - saturating at 96% on 2L NC - wean down further as tolerated - ABG improved 2. Pulmonary edema. - Will dc fluids - on diuretics 3. History of CHF. - trend BNP and diurese prn per Cardio 4. Multi-infarct dementia. 5. Hypertension. 6. DVT ppx - On lovenox 7. Urinary pathogen E. Coli - s/p ceftriaxone (11/01-11/08) 8. Hypokalemia - replaced The care for this patient was discussed with my supervising physician Time spent for this case was approximately 31 minutes Gagan Montilla 6, 2021 09:23
[2020-11-08 09:50] LABS: HEMATOCRIT 39.1 % (42.0-52.0); HEMOGLOBIN 12.6 G/DL (14.2-18.0); MEAN CORPUSCULAR VOLUME 105 FL (80-99); PLATELET COUNT 222 K/UL (150-450); RED BLOOD COUNT 3.71 M/UL (4.70-6.10); RED CELL DISTRIBUTION WIDTH 15.1 % (11.6-14.8)
[2020-11-08] MEDS: Metoprolol Tartrate 12.5mg TAB ORAL SCH ×2 (10:07→20:38)
[2020-11-08 10:10] LABS: ALANINE AMINOTRANSFERASE 66 U/L (12-78); ALBUMIN 2.4 G/DL (3.4-5.0); ALBUMIN/GLOBULIN RATIO 0.6 (1.0-2.7); ALKALINE PHOSPHATASE 17 U/L (46-116); ANION GAP 0 mmol/L (5-15); ASPARTATE AMINO TRANSFERASE 21 U/L (15-37); BILIRUBIN,TOTAL 0.7 MG/DL (0.2-1.0); BLOOD UREA NITROGEN 34 mg/dL (7-18); CALCIUM 8.4 MG/DL (8.5-10.1); CARBON DIOXIDE 38 MMOL/L (21-32); CHLORIDE 103 MMOL/L (98-107); CREATININE 0.7 MG/DL (0.55-1.30); POTASSIUM 3.4 MMOL/L (3.5-5.1); SODIUM 141 MMOL/L (136-145)
--- NOTE | 2020-11-08 10:39 | General Progress Note ---
Subjective ROS Limited/Unobtainable: No Constitutional: Reports: malaise, weakness HEENT: Reports: no symptoms Cardiovascular: Reports: no symptoms Respiratory: Reports: cough, shortness of breath Gastrointestinal/Abdominal: Reports: no symptoms Genitourinary: Reports: no symptoms Neurologic/Psychiatric: Reports: no symptoms Endocrine: Reports: no symptoms Hematologic/Lymphatic: Reports: no symptoms Allergies: Coded Allergies: No Known Allergies (Unverified , 09/16/20) All Systems: reviewed and negative except above Subjective no change. improved. decreased o2 requirements. currently on nasal cannula 4L. less anxious and agitated. more cooperative. no fevers. passed swallow eval low k noted Objective Last 24 Hour Vital Signs Date Time Temp Pulse Resp B/P (MAP) Pulse Ox O2 Delivery O2 Flow Rate FiO2 11/08/20 10:07 58 11/08/20 09:00 Nasal Cannula 4.0 11/08/20 04:00 97.1 68 18 151/59 (89) 95 11/08/20 04:00 59 11/08/20 00:00 97.1 69 19 138/57 (84) 99 11/08/20 00:00 87 11/07/20 21:41 61 145/55 11/07/20 21:00 Nasal Cannula 4.0 11/07/20 20:00 61 11/07/20 20:00 97.9 61 19 145/55 (85) 95 11/07/20 19:46 96 Nasal Cannula 4.0 36 11/07/20 16:00 97.5 57 19 140/53 (82) 100 11/07/20 16:00 59 11/07/20 12:00 55 11/07/20 12:00 98.1 67 20 130/67 (88) 100 Intake and Output 11/07/20 11/08/20 19:00 07:00 Intake Total 140 ml Output Total 1200 ml 1900 ml Balance -1060 ml -1900 ml Intake Oral 140 ml Output Urine Total 1200 ml 1900 ml # Voids 3 Laboratory Tests 11/08/20 09:10: White Blood Count 14.0H, Red Blood Count 3.71L, Hemoglobin 12.6L, Hematocrit 39.1L, Mean Corpuscular Volume 105H, Mean Corpuscular Hemoglobin 34.1H, Mean Corpuscular Hemoglobin Concent 32.3, Red Cell Distribution Width 15.1H, Platelet Count 222, Mean Platelet Volume 8.5, Neutrophils (%) (Auto) , Lymphocytes (%) (Auto) , Monocytes (%) (Auto) , Eosinophils (%) (Auto) , Basophils (%) (Auto) , Neutrophils % (Manual) [Pending], Lymphocytes % (Manual) [Pending], Platelet Estimate [Pending], Platelet Morphology [Pending], Sodium Level 141, Potassium Level 3.4L, Chloride Level 103, Carbon Dioxide Level 38H, Anion Gap 0L, Blood Urea Nitrogen 34H, Creatinine 0.7, Estimat Glomerular Filtration Rate > 60, Glucose Level 136H, Calcium Level 8.4L, Total Bilirubin 0.7, Aspartate Amino Transf (AST/SGOT) 21, Alanine Aminotransferase (ALT/SGPT) 66, Alkaline Phosphatase 17L, Total Protein 6.2L, Albumin 2.4L, Globulin 3.8, Albumin/Globulin Ratio 0.6L Height (Feet): 5 Height (Inches): 6.00 Weight (Pounds): 145 Objective General Appearance: WD/WN, alert EENT: normal ENT inspection Neck: normal alignment Cardiovascular: normal peripheral pulses Respiratory/Chest: chest wall non-tender, lungs clear, normal breath sounds Abdomen: normal bowel sounds, non tender, soft, no organomegaly Edema: no edema noted Arm (L), no edema noted Arm (R), no edema noted Leg (L), no edema noted Leg (R) Neurologic: alert, responsive Skin: normal pigmentation Assessment/Plan Problem List: (1) COVID-19 virus detected ICD Codes: U07.1 - COVID-19 SNOMED: 4703463027533424 (2) NSTEMI (non-ST elevated myocardial infarction) ICD Codes: I21.4 - Non-ST elevation (NSTEMI) myocardial infarction SNOMED: 84872334 (3) Hypoxia ICD Codes: R09.02 - Hypoxemia SNOMED: 794703293 (4) CHF (congestive heart failure) ICD Codes: I50.9 - Heart failure, unspecified SNOMED: 60585351 Qualifiers: Qualified Codes: I50.9 - Heart failure, unspecified (5) Respiratory distress ICD Codes: R06.03 - Acute respiratory distress SNOMED: 219357656 (6) Pneumonia due to COVID-19 virus ICD Codes: U07.1 - COVID-19; J12.89 - Other viral pneumonia SNOMED: 374543033828451333 (7) Shortness of breath ICD Codes: R06.02 - Shortness of breath SNOMED: 093997930 Status: stable, progressing Assessment/Plan: cont current rx iv steroids s/p ivermectin resp care o2 dvt/stress ulcer prophylaxis swallow eval noted- start po monitor cxr and abg diuresis replace k anxiolytics o2 as needed dvt/stress ulcer prophylaxis guarded Donnell Pedersen MD Nov 08, 2020 10:39
[2020-11-08] MEDS: Losartan 50mg tab ORAL SCH (11:08)
[2020-11-08] MEDS: Spironolactone 25mg tab ORAL SCH (11:09)
[2020-11-08 12:05] VITALS: BP 131/57
--- NOTE | 2020-11-08 12:34 | Surgery Progress Note ---
Surgery Progress Note Subjective Additional Comments Patient seen and examined bedside. No acute events. Resting comfortably. Labs noted. Exam stable. No complaints at this time. Imaging reviewed micro revi ewed afebrile hemodynamic stable Objective Last 24 Hour Vital Signs Date Time Temp Pulse Resp B/P (MAP) Pulse Ox O2 Delivery O2 Flow Rate FiO2 11/08/20 12:05 97.7 65 18 131/57 (81) 95 11/08/20 11:08 145/59 11/08/20 10:07 58 11/08/20 09:00 Nasal Cannula 4.0 11/08/20 08:00 97.1 67 18 133/57 (82) 98 11/08/20 07:32 63 11/08/20 04:00 97.1 68 18 151/59 (89) 95 11/08/20 04:00 59 11/08/20 00:00 97.1 69 19 138/57 (84) 99 11/08/20 00:00 87 11/07/20 21:41 61 145/55 11/07/20 21:00 Nasal Cannula 4.0 11/07/20 20:00 61 11/07/20 20:00 97.9 61 19 145/55 (85) 95 11/07/20 19:46 96 Nasal Cannula 4.0 36 11/07/20 16:00 97.5 57 19 140/53 (82) 100 11/07/20 16:00 59 I&O Intake and Output 11/07/20 11/08/20 19:00 07:00 Intake Total 140 ml Output Total 1200 ml 1900 ml Balance -1060 ml -1900 ml Intake Oral 140 ml Output Urine Total 1200 ml 1900 ml # Voids 3 Laboratory Tests Test 11/08/20 09:10 White Blood Count 14.0 K/UL (4.8-10.8) H Red Blood Count 3.71 M/UL (4.70-6.10) L Hemoglobin 12.6 G/DL (14.2-18.0) L Hematocrit 39.1 % (42.0-52.0) L Mean Corpuscular Volume 105 FL (80-99) H Mean Corpuscular Hemoglobin 34.1 PG (27.0-31.0) H Mean Corpuscular Hemoglobin Concent 32.3 G/DL (32.0-36.0) Red Cell Distribution Width 15.1 % (11.6-14.8) H Platelet Count 222 K/UL (150-450) Mean Platelet Volume 8.5 FL (6.5-10.1) Neutrophils (%) (Auto) % (45.0-75.0) Lymphocytes (%) (Auto) % (20.0-45.0) Monocytes (%) (Auto) % (1.0-10.0) Eosinophils (%) (Auto) % (0.0-3.0) Basophils (%) (Auto) % (0.0-2.0) Differential Total Cells Counted 100 Neutrophils % (Manual) 93 % (45-75) H Lymphocytes % (Manual) 4 % (20-45) L Monocytes % (Manual) 3 % (1-10) Eosinophils % (Manual) 0 % (0-3) Basophils % (Manual) 0 % (0-2) Band Neutrophils 0 % (0-8) Platelet Estimate Adequate Platelet Morphology Normal Anisocytosis 1+ Macrocytosis 1+ Sodium Level 141 MMOL/L (136-145) Potassium Level 3.4 MMOL/L (3.5-5.1) L Chloride Level 103 MMOL/L (98-107) Carbon Dioxide Level 38 MMOL/L (21-32) H Anion Gap 0 mmol/L (5-15) L Blood Urea Nitrogen 34 mg/dL (7-18) H Creatinine 0.7 MG/DL (0.55-1.30) Estimat Glomerular Filtration Rate > 60 mL/min (>60) Glucose Level 136 MG/DL (74-106) H Calcium Level 8.4 MG/DL (8.5-10.1) L Total Bilirubin 0.7 MG/DL (0.2-1.0) Aspartate Amino Transf (AST/SGOT) 21 U/L (15-37) Alanine Aminotransferase (ALT/SGPT) 66 U/L (12-78) Alkaline Phosphatase 17 U/L (46-116) L Total Protein 6.2 G/DL (6.4-8.2) L Albumin 2.4 G/DL (3.4-5.0) L Globulin 3.8 g/dL Albumin/Globulin Ratio 0.6 (1.0-2.7) L Plan Problems: (1) Respiratory distress (2) CHF (congestive heart failure) (3) Hypoxia (4) NSTEMI (non-ST elevated myocardial infarction) (5) COVID-19 virus detected Assessment & Plan: ++ as per pulm and id (6) Shortness of breath (7) Malnutrition Assessment & Plan: Mr. Miles is an 85 year old male recently hospitalize here at [facility] on 09/16/2020 returned to ED here on 11/01/2020 from [facility] for recurrent CHF exacerbation, hyponatremia, LISA, elevated LFT, dyspnea, hypoxemia with new diagnosis of COVID 19 (10/01/2020). The most recent TTE with remarkable for LV hypokinesis, LVEF 20~25%, IVC dilation elevated PA pressure, Mod. AR, Sev. MR consists with large bilateral pleural effusion. PMH: paroxysmal atrial fibrillation flutter RVR, Acute on chronic Systolic CHF, ME, CAD, CVA Current labs, vital signs, imaging reviewed. Current Code status: Full Findings: is alert. He is sitting upright 90 degree in his bed. He is asking for [place] nurse. He is not able to complete sentence due to shortness of breathe. Voice is intact. Pt asked for water, so i gave a cup of water. He was able to takes multiple sips without s.s of aspiration. Pt reused food at this time. Impression: Mr. Miles is an 85 year old [place] Male presents with endstage heart failure with high risk of aspiration, pneumonia and respiratory failure. Pt is currently full code and ok for PEG. However given him poor cardiac function and providing him fdc feeding may result suffering rather providing quality of care . Interpretation: 1. Functional swallow with Pureed and liquid 2. Risk of respiratory failure with aspiration, trach etc with poor cardiac function Plan/Recommendation. 1. Pureed and thin liquid 2. 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 CURRENT DIET: Cardiac ms ground PO DIET RECOMMENDATIONS: Low Na diet/ texture per LIFESTYLE CONSULTANT ADDITIONAL RECOMMENDATIONS: 1) Add Ensure Enlive BID w/ meals (350 kcal, 20g pro each) 2) Add snacks as tolerated in b/w meals 3) Replete lytes as needed (Low K 3.3) 4) maintain daily calibrated bed scale wts BMI now underweight 5) Consider Kcal count to evaluate po intake (7) Abnormal LFTs Assessment & Plan: elevated t bili ast/alt okay US ordered trend labs cont fluids will follow with resc. Liver: The liver is normal in size and echogenicity. No focal abnormalities are noted. Gallbladder: The gallbladder is normal. No stones are visualized. The wall is not thickened. Is no sonographic Galvan sign. Common bile duct: Normal in size. Pancreas: The visualized portion of pancreas is normal in echogenicity. There are no masses. Kidneys: The kidneys are normal in size and demonstrate cortical thinning. There is fullness of the right collecting system. There is a 2.2 cm parapelvic right renal cyst. There is a subcentimeter right midpole cyst. Prostate is within normal limits in volume. There is mild post void residual volume of 65 mL. Spleen: The spleen is normal in size and echogenicity. Additional findings: Images aorta is unremarkable. There is a large right pleural effusion. There is a large left pleural effusion. IMPRESSION: 1. Mildly atrophic kidneys. 2. Fullness of the right collecting system without sonographic evidence of obstructive process. 3. Mild post void residual volume of 65 mL. 4. Large bilateral pleural effusions. 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 loose bm soilage. patient not able to always states when. wash daily with NS. apply skin protectant turn q2h off load pressure monitor for incontinence and care appropriately thank you Mo Siegel Nov 08, 2020 12:34
--- NOTE | 2020-11-08 14:36 | Diagnostic Imaging Report ---
Indication: Shortness of breath Technique: One view of the chest Comparison: 11/03/2020 Findings: There is decreased pleural fluid on the left. There is a small right pleural effusion. Bilateral infiltrates are unchanged. The heart is borderline enlarged. Densely calcified mediastinal lymph nodes are again demonstrated. Impression: Decreased left pleural effusion Stable bilateral infiltrates Evidence of old granulomatous disease
[2020-11-08 16:00] VITALS: BP 134/50
--- NOTE | 2020-11-08 16:05 | Cardiology Report ---
APPROVED REPORT EKG Measurement Heart [id number] <Conclusion> Atrial fibrillation with rapid ventricular response Right superior axis deviation Nonspecific intraventricular block Abnormal ECG
--- NOTE | 2020-11-08 16:20 | Infectious Diseases Prog Note ---
Assessment/Plan Assessment/Plan antibiotics : ceftriaxone A 1. covid 19 pneumonia improving on 4 liters O2, saturation 96 % s/p ivermectin 2. e.coli UTI 3. CHF 4. dementia 5. atrial fibrillation P 1. continue dexamethasone day 8 2. d/c ceftriaxone 3. continue isolation Subjective Constitutional: Denies: fever, chills Respiratory: Reports: dry cough - mild; Denies: shortness of breath Gastrointestinal/Abdominal: Denies: nausea, vomiting, diarrhea Musculoskeletal: Denies: pain Allergies: Coded Allergies: No Known Allergies (Unverified , 09/16/20) Objective Last 24 Hour Vital Signs Date Time Temp Pulse Resp B/P (MAP) Pulse Ox O2 Delivery O2 Flow Rate FiO2 11/08/20 12:05 97.7 65 18 131/57 (81) 95 11/08/20 11:44 84 11/08/20 11:08 145/59 11/08/20 10:07 58 11/08/20 09:00 Nasal Cannula 4.0 11/08/20 08:00 97.1 67 18 133/57 (82) 98 11/08/20 07:32 63 11/08/20 04:00 97.1 68 18 151/59 (89) 95 11/08/20 04:00 59 11/08/20 00:00 97.1 69 19 138/57 (84) 99 11/08/20 00:00 87 11/07/20 21:41 61 145/55 11/07/20 21:00 Nasal Cannula 4.0 11/07/20 20:00 61 11/07/20 20:00 97.9 61 19 145/55 (85) 95 11/07/20 19:46 96 Nasal Cannula 4.0 36 Height (Feet): 5 Height (Inches): 6.00 Weight (Pounds): 145 Laboratory Tests Test 11/08/20 09:10 White Blood Count 14.0 K/UL (4.8-10.8) H Red Blood Count 3.71 M/UL (4.70-6.10) L Hemoglobin 12.6 G/DL (14.2-18.0) L Hematocrit 39.1 % (42.0-52.0) L Mean Corpuscular Volume 105 FL (80-99) H Mean Corpuscular Hemoglobin 34.1 PG (27.0-31.0) H Mean Corpuscular Hemoglobin Concent 32.3 G/DL (32.0-36.0) Red Cell Distribution Width 15.1 % (11.6-14.8) H Platelet Count 222 K/UL (150-450) Mean Platelet Volume 8.5 FL (6.5-10.1) Neutrophils (%) (Auto) % (45.0-75.0) Lymphocytes (%) (Auto) % (20.0-45.0) Monocytes (%) (Auto) % (1.0-10.0) Eosinophils (%) (Auto) % (0.0-3.0) Basophils (%) (Auto) % (0.0-2.0) Differential Total Cells Counted 100 Neutrophils % (Manual) 93 % (45-75) H Lymphocytes % (Manual) 4 % (20-45) L Monocytes % (Manual) 3 % (1-10) Eosinophils % (Manual) 0 % (0-3) Basophils % (Manual) 0 % (0-2) Band Neutrophils 0 % (0-8) Platelet Estimate Adequate Platelet Morphology Normal Anisocytosis 1+ Macrocytosis 1+ Sodium Level 141 MMOL/L (136-145) Potassium Level 3.4 MMOL/L (3.5-5.1) L Chloride Level 103 MMOL/L (98-107) Carbon Dioxide Level 38 MMOL/L (21-32) H Anion Gap 0 mmol/L (5-15) L Blood Urea Nitrogen 34 mg/dL (7-18) H Creatinine 0.7 MG/DL (0.55-1.30) Estimat Glomerular Filtration Rate > 60 mL/min (>60) Glucose Level 136 MG/DL (74-106) H Calcium Level 8.4 MG/DL (8.5-10.1) L Total Bilirubin 0.7 MG/DL (0.2-1.0) Aspartate Amino Transf (AST/SGOT) 21 U/L (15-37) Alanine Aminotransferase (ALT/SGPT) 66 U/L (12-78) Alkaline Phosphatase 17 U/L (46-116) L Total Protein 6.2 G/DL (6.4-8.2) L Albumin 2.4 G/DL (3.4-5.0) L Globulin 3.8 g/dL Albumin/Globulin Ratio 0.6 (1.0-2.7) L Current Medications Medications (Trade) Dose Ordered Sig/Lucille Route PRN Reason Start Time Stop Time Status Last Admin Dose Admin Acetaminophen (Tylenol) 650 mg Q4H PRN RECTAL Mild Pain (Pain Scale 1-3) 11/01/20 08:30 12/01/20 08:29 Acetaminophen (Tylenol) 650 mg Q6H PRN ORAL For Headache 11/01/20 08:30 12/01/20 08:29 Amiodarone HCl (Cordarone) 100 mg DAILY ORAL 11/08/20 10:30 02/06/21 10:29 11/08/20 11:09 Amiodarone HCl (Cordarone) 200 mg DAILY ORAL 11/01/20 09:00 01/30/21 08:59 11/08/20 08:38 Clonidine HCl (Catapres Tab) 0.1 mg Q4H PRN ORAL SBP above 150 11/01/20 08:30 01/30/21 08:29 Dexamethasone Sodium Phosphate (Decadron 10mg/ ml Inj) 6 mg DAILY IV 11/02/20 09:00 11/10/20 09:01 11/08/20 08:39 Enoxaparin Sodium (Lovenox) 60 mg DAILY SUBQ 11/01/20 09:00 01/30/21 08:59 11/08/20 08:38 Furosemide (Lasix) 40 mg DAILY IV 11/08/20 10:30 12/02/20 10:29 11/08/20 11:09 Lorazepam (Ativan 2mg/ml 1ml) 1 mg Q4H PRN IV For Anxiety 11/02/20 00:15 11/09/20 00:14 11/07/20 23:35 Losartan Potassium (Cozaar) 100 mg DAILY ORAL 11/08/20 10:30 12/08/20 10:29 11/08/20 11:08 Metoprolol Tartrate (Lopressor) 12.5 mg Q12HR ORAL 11/01/20 09:00 01/30/21 08:59 11/07/20 21:41 Pantoprazole (Protonix) 40 mg ACBREAKFAST ORAL 11/01/20 09:00 12/01/20 08:59 11/08/20 06:26 Quetiapine Fumarate (SEROqueL) 25 mg Q12HR ORAL 11/04/20 12:30 12/19/20 12:29 11/08/20 08:38 Spironolactone (Aldactone) 25 mg DAILY ORAL 11/08/20 10:30 12/08/20 10:29 11/08/20 11:09 Coretta Garcia MD Nov 08, 2020 16:20
[2020-11-08] MEDS: LORazepam Inj 2mg/ml 1ml IV PRN (19:18)
[2020-11-08 20:00] VITALS: BP 139/62
[2020-11-09] VITALS: BP 115/60
--- NOTE | 2020-11-09 01:22 | Cardiology Progress Note ---
Subjective DATE OF SERVICE: Nov 08, 2020 On O2 by nasal cannula Less SOB and congestion Monitor: sinus/sinus bradycardia with atrial ectopy Objective Last 24 Hour Vital Signs Date Time Temp Pulse Resp B/P (MAP) Pulse Ox O2 Delivery O2 Flow Rate FiO2 11/09/20 00:00 97.9 82 17 115/60 (78) 98 11/08/20 21:00 Nasal Cannula 4.0 11/08/20 20:38 69 139/62 11/08/20 20:00 73 11/08/20 20:00 97.9 79 18 139/62 (87) 95 11/08/20 16:00 64 11/08/20 16:00 98.1 62 18 134/50 (78) 99 11/08/20 12:05 97.7 65 18 131/57 (81) 95 11/08/20 11:44 84 11/08/20 11:08 145/59 11/08/20 10:07 58 11/08/20 09:00 Nasal Cannula 4.0 11/08/20 08:00 97.1 67 18 133/57 (82) 98 11/08/20 07:32 63 11/08/20 04:00 97.1 68 18 151/59 (89) 95 11/08/20 04:00 59 ROS: unchanged from 11/01/20 RHYTHM: NSR, SB, PACs LUNGS: bilateral rhonchi CARDIAC: regular rhythm, normal S1 and S2, bradycardia ABDOMEN: normal bowel sounds EXTREMITIES: no calf tenderness, No edema Laboratory Tests Test 11/08/20 09:10 White Blood Count 14.0 K/UL (4.8-10.8) H Red Blood Count 3.71 M/UL (4.70-6.10) L Hemoglobin 12.6 G/DL (14.2-18.0) L Hematocrit 39.1 % (42.0-52.0) L Mean Corpuscular Volume 105 FL (80-99) H Mean Corpuscular Hemoglobin 34.1 PG (27.0-31.0) H Mean Corpuscular Hemoglobin Concent 32.3 G/DL (32.0-36.0) Red Cell Distribution Width 15.1 % (11.6-14.8) H Platelet Count 222 K/UL (150-450) Mean Platelet Volume 8.5 FL (6.5-10.1) Neutrophils (%) (Auto) % (45.0-75.0) Lymphocytes (%) (Auto) % (20.0-45.0) Monocytes (%) (Auto) % (1.0-10.0) Eosinophils (%) (Auto) % (0.0-3.0) Basophils (%) (Auto) % (0.0-2.0) Differential Total Cells Counted 100 Neutrophils % (Manual) 93 % (45-75) H Lymphocytes % (Manual) 4 % (20-45) L Monocytes % (Manual) 3 % (1-10) Eosinophils % (Manual) 0 % (0-3) Basophils % (Manual) 0 % (0-2) Band Neutrophils 0 % (0-8) Platelet Estimate Adequate Platelet Morphology Normal Anisocytosis 1+ Macrocytosis 1+ Sodium Level 141 MMOL/L (136-145) Potassium Level 3.4 MMOL/L (3.5-5.1) L Chloride Level 103 MMOL/L (98-107) Carbon Dioxide Level 38 MMOL/L (21-32) H Anion Gap 0 mmol/L (5-15) L Blood Urea Nitrogen 34 mg/dL (7-18) H Creatinine 0.7 MG/DL (0.55-1.30) Estimat Glomerular Filtration Rate > 60 mL/min (>60) Glucose Level 136 MG/DL (74-106) H Calcium Level 8.4 MG/DL (8.5-10.1) L Total Bilirubin 0.7 MG/DL (0.2-1.0) Aspartate Amino Transf (AST/SGOT) 21 U/L (15-37) Alanine Aminotransferase (ALT/SGPT) 66 U/L (12-78) Alkaline Phosphatase 17 U/L (46-116) L Total Protein 6.2 G/DL (6.4-8.2) L Albumin 2.4 G/DL (3.4-5.0) L Globulin 3.8 g/dL Albumin/Globulin Ratio 0.6 (1.0-2.7) L Assessment/Plan Assessment/Plan Covid19 PNA Hypoxia Acute respiratory failure Acute coronary syndr Acute/chronic systolic CHF Lactic acidosis O2 Full anticoagulation Steroids Monitor volume status; trend BNP with diuresis prn. F/U CXR and labs. Rye Katz MD Nov 09, 2020 01:22
[2020-11-09 04:00] VITALS: BP 144/62
[2020-11-09 08:00] VITALS: BP 146/60
[2020-11-09] MEDS ORDERED: Enoxaparin 30mg Inj SUBQ SCH (09:00)
[2020-11-09] MEDS: Amiodarone 200mg tab ORAL SCH ×2 (09:00→10:35)
[2020-11-09] MEDS: dexAMETHasone 10mg/ml Inj IV SCH (09:33)
[2020-11-09] MEDS: Losartan 50mg tab ORAL SCH (09:33)
--- NOTE | 2020-11-09 09:58 | Infectious Diseases Prog Note ---
Assessment/Plan Assessment/Plan A: 1. COVID-19 pneumonia. 2. Congestive heart failure. 3. Coronary artery disease. 4. Atrial fibrillation. 5. Dementia. 6. Hypoxemia 7. E.coli UTI treated PLAN: 1. Continue dexamethasone day #9 2. Got a dose of ivermectin 3. Continue isolation. Subjective ROS Limited/Unobtainable: Yes Constitutional: Denies: fever Allergies: Coded Allergies: No Known Allergies (Unverified , 09/16/20) Objective Last 24 Hour Vital Signs Date Time Temp Pulse Resp B/P (MAP) Pulse Ox O2 Delivery O2 Flow Rate FiO2 11/09/20 09:33 146/60 11/09/20 08:56 Nasal Cannula 4.0 11/09/20 08:00 97.9 87 20 146/60 (88) 95 11/09/20 08:00 102 11/09/20 07:45 96 Nasal Cannula 4.0 36 11/09/20 04:00 98.1 82 18 144/62 (89) 96 11/09/20 04:00 97 11/09/20 00:00 108 11/09/20 00:00 97.9 82 17 115/60 (78) 98 11/08/20 21:00 Nasal Cannula 4.0 11/08/20 20:38 69 139/62 11/08/20 20:00 73 11/08/20 20:00 97.9 79 18 139/62 (87) 95 11/08/20 16:00 64 11/08/20 16:00 98.1 62 18 134/50 (78) 99 11/08/20 12:05 97.7 65 18 131/57 (81) 95 11/08/20 11:44 84 11/08/20 11:08 145/59 11/08/20 10:07 58 Height (Feet): 5 Height (Inches): 6.00 Weight (Pounds): 145 HEENT: mucous membranes moist Respiratory/Chest: other - oxygen by nasal cannula Cardiovascular: tachycardia Abdomen: soft, non tender Extremities: no edema Neurologic/Psychiatric: aphasia Musculoskeletal: atrophy Current Medications Medications (Trade) Dose Ordered Sig/Lucille Route PRN Reason Start Time Stop Time Status Last Admin Dose Admin Acetaminophen (Tylenol) 650 mg Q4H PRN RECTAL Mild Pain (Pain Scale 1-3) 11/01/20 08:30 12/01/20 08:29 Acetaminophen (Tylenol) 650 mg Q6H PRN ORAL For Headache 11/01/20 08:30 12/01/20 08:29 Amiodarone HCl (Cordarone) 100 mg DAILY ORAL 11/08/20 10:30 02/06/21 10:29 11/08/20 11:09 Amiodarone HCl (Cordarone) 200 mg DAILY ORAL 11/01/20 09:00 01/30/21 08:59 11/08/20 08:38 Clonidine HCl (Catapres Tab) 0.1 mg Q4H PRN ORAL SBP above 150 11/01/20 08:30 01/30/21 08:29 Dexamethasone Sodium Phosphate (Decadron 10mg/ ml Inj) 6 mg DAILY IV 11/02/20 09:00 11/10/20 09:01 11/09/20 09:33 Enoxaparin Sodium (Lovenox) 30 mg DAILY SUBQ 11/09/20 09:00 02/07/21 08:59 11/09/20 09:34 Furosemide (Lasix) 40 mg DAILY IV 11/08/20 10:30 12/02/20 10:29 11/09/20 09:35 Losartan Potassium (Cozaar) 100 mg DAILY ORAL 11/08/20 10:30 12/08/20 10:29 11/09/20 09:33 Metoprolol Tartrate (Lopressor) 12.5 mg Q12HR ORAL 11/01/20 09:00 01/30/21 08:59 11/08/20 20:38 Pantoprazole (Protonix) 40 mg ACBREAKFAST ORAL 11/01/20 09:00 12/01/20 08:59 11/09/20 06:05 Quetiapine Fumarate (SEROqueL) 25 mg Q12HR ORAL 11/04/20 12:30 12/19/20 12:29 11/09/20 09:34 Spironolactone (Aldactone) 25 mg DAILY ORAL 11/08/20 10:30 12/08/20 10:29 11/08/20 11:09 Silvio Medrano MD Nov 09, 2020 09:58
[2020-11-09] MEDS: Spironolactone 25mg tab ORAL SCH (10:35)
[2020-11-09] MEDS: Metoprolol Tartrate 12.5mg TAB ORAL SCH (10:35)
[2020-11-09 11:00] VITALS: BP 125/69
--- NOTE | 2020-11-09 11:10 | Cardiology Progress Note ---
Subjective DATE OF SERVICE: Nov 09, 2020 Saturating adequately on room air. Less SOB and congestion Monitor: sinus/sinus bradycardia with atrial ectopy Low potassium noted Objective Last 24 Hour Vital Signs Date Time Temp Pulse Resp B/P (MAP) Pulse Ox O2 Delivery O2 Flow Rate FiO2 11/09/20 10:35 102 146/60 11/09/20 09:33 146/60 11/09/20 08:56 Nasal Cannula 4.0 11/09/20 08:00 97.9 87 20 146/60 (88) 95 11/09/20 08:00 102 11/09/20 07:45 96 Nasal Cannula 4.0 36 11/09/20 04:00 98.1 82 18 144/62 (89) 96 11/09/20 04:00 97 11/09/20 00:00 108 11/09/20 00:00 97.9 82 17 115/60 (78) 98 11/08/20 21:00 Nasal Cannula 4.0 11/08/20 20:38 69 139/62 11/08/20 20:00 73 11/08/20 20:00 97.9 79 18 139/62 (87) 95 11/08/20 16:00 64 11/08/20 16:00 98.1 62 18 134/50 (78) 99 11/08/20 12:05 97.7 65 18 131/57 (81) 95 11/08/20 11:44 84 ROS: unchanged from 11/01/20 RHYTHM: NSR, SB, PACs LUNGS: bilateral rhonchi CARDIAC: regular rhythm, normal S1 and S2, bradycardia ABDOMEN: normal bowel sounds EXTREMITIES: no calf tenderness, No edema Assessment/Plan Assessment/Plan Covid19 PNA Hypoxia Acute respiratory failure Acute coronary syndr Acute/chronic systolic CHF Lactic acidosis O2 Full anticoagulation while immobilized Steroids Monitor volume status; trend BNP with diuresis prn. Potassium suppl as needed. Complete recovery at [facility] Rey Katz MD Nov 09, 2020 11:10
--- NOTE | 2020-11-09 11:51 | Surgery Progress Note ---
Surgery Progress Note Subjective Additional Comments patient has been accepted for placement d/c planning improved okay to d/c no n/v/f/c Objective Last 24 Hour Vital Signs Date Time Temp Pulse Resp B/P (MAP) Pulse Ox O2 Delivery O2 Flow Rate FiO2 11/09/20 10:35 102 146/60 11/09/20 09:33 146/60 11/09/20 08:56 Nasal Cannula 4.0 11/09/20 08:00 97.9 87 20 146/60 (88) 95 11/09/20 08:00 102 11/09/20 07:45 96 Nasal Cannula 4.0 36 11/09/20 04:00 98.1 82 18 144/62 (89) 96 11/09/20 04:00 97 11/09/20 00:00 108 11/09/20 00:00 97.9 82 17 115/60 (78) 98 11/08/20 21:00 Nasal Cannula 4.0 11/08/20 20:38 69 139/62 11/08/20 20:00 73 11/08/20 20:00 97.9 79 18 139/62 (87) 95 11/08/20 16:00 64 11/08/20 16:00 98.1 62 18 134/50 (78) 99 11/08/20 12:05 97.7 65 18 131/57 (81) 95 I&O Intake and Output 11/08/20 11/09/20 19:00 07:00 Intake Total 300 ml Output Total 1200 ml 550 ml Balance -900 ml -550 ml Intake Oral 300 ml Output Urine Total 1200 ml 550 ml # Bowel Movements 1 Dressing: saturated Cardiovascular: RSR Respiratory: decreased breath sounds Abdomen: soft, non-tender, present bowel sounds, non-distended Extremities: no tenderness, no cyanosis Plan Problems: (1) Respiratory distress (2) CHF (congestive heart failure) (3) Hypoxia (4) NSTEMI (non-ST elevated myocardial infarction) (5) COVID-19 virus detected Assessment & Plan: ++ as per pulm and id (6) Shortness of breath (7) Malnutrition Assessment & Plan: Mr. Miles is an 85 year old male recently hospitalize here at [facility] on 09/16/2020 returned to ED here on 11/01/2020 from [facility] for recurrent CHF exacerbation, hyponatremia, LISA, elevated LFT, dyspnea, hypoxemia with new diagnosis of COVID 19 (10/01/2020 ). The most recent TTE with remarkable for LV hypokinesis, LVEF 20~25%, IVC dilation elevated PA pressure, Mod. AR, Sev. MR consists with large bilateral pleural effusion. PMH: paroxysmal atrial fibrillation flutter RVR, Acute on chronic Systolic CHF, SC, CAD, CVA Current labs, vital signs, imaging reviewed. Current Code status: Full Findings: is alert. He is sitting upright 90 degree in his bed. He is asking for Czech nurse. He is not able to complete sentence due to shortness of breathe. Voice is intact. Pt asked for water, so i gave a cup of water. He was able to takes multiple sips without s.s of aspiration. Pt reused food at this time. Impression: Mr. Miles is an 85 year old [place] Male presents with endstage heart failure with high risk of aspiration, pneumonia and respiratory failure. Pt is currently full code and ok for PEG. However given him poor cardiac function and providing him long-term feeding may result suffering rather providing quality of care . Interpretation: 1. Functional swallow with Pureed and liquid 2. Risk of respiratory failure with aspiration, trach etc with poor cardiac function Plan/Recommendation. 1. Pureed and thin liquid 2. Discussion of goal of care (8) Weakness (9) Elevated troponin (10) Abnormal LFTs Assessment & Plan: ast/alt alk phos elevated no cici hold US trend labs exam benign (11) Incontinence associated dermatitis Assessment & Plan: Malnutrition Assessment & Plan: DAILY ESTIMATED NEEDS: Needs based on underweight, pulmonary 51kg 30-35 kcals/kg 4825-5620 total kcals 1.25-1.5 g protein/kg 64-77 g total protein Fluid per MD On lasix NUTRITION DIAGNOSIS: Increased kcal and pro needs r/t underweight status as evidenced by pt w/ BMI underweight per guidelines, 79% of [place] Body Weight, w/ sacral redness. CURRENT DIET: Cardiac ms ground PO DIET RECOMMENDATIONS: Low Na diet/ texture per [employer] SAL[employer] MANAGER ADDITIONAL RECOMMENDATIONS: 1) Add Ensure Enlive BID w/ meals (350 kcal, 20g pro each) 2) Add snacks as tolerated in b/w meals 3) Replete lytes as needed (Low K 3.3) 4) maintain daily calibrated bed scale wts BMI now underweight 5) Consider Kcal count to evaluate po intake (7) Abnormal LFTs Assessment & Plan: elevated t bili ast/alt okay US ordered trend labs cont fluids will follow with resc. Liver: The liver is normal in size and echogenicity. No focal abnormalities are noted. Gallbladder: The gallbladder is normal. No stones are visualized. The wall is n ot thickened. Is no sonographic Galvan sign. Common bile duct: Normal in size. Pancreas: The visualized portion of pancreas is normal in echogenicity. There are no masses. Kidneys: The kidneys are normal in size and demonstrate cortical thinning. There is fullness of the right collecting system. There is a 2.2 cm parapelvic right renal cyst. There is a subcentimeter right midpole cyst. Prostate is within normal limits in volume. There is mild post void residual volume of 65 mL. Spleen: The spleen is normal in size and echogenicity. Additional findings: Images aorta is unremarkable. There is a large right pleural effusion. There is a large left pleural effusion. IMPRESSION: 1. Mildly atrophic kidneys. 2. Fullness of the right collecting system without sonographic evidence of obstructive process. 3. Mild post void residual volume of 65 mL. 4. Large bilateral pleural effusions. 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 loose bm soilage. patient not able to always states when. wash daily with NS. apply skin protectant turn q2h off load pressure monitor for incontinence and care appropriately thank you Mo Siegel Nov 09, 2020 11:51
--- NOTE | 2020-11-09 11:54 | Pulmonology Progress Note ---
Subjective ROS Limited/Unobtainable: Yes Interval Events: none major overnight per nursing Constitutional: Denies: fever HEENT: Repors: no symptoms Respiratory: Reports: no symptoms Cardiovascular: Reports: no symptoms Gastrointestinal/Abdominal: Denies: nausea, vomiting, diarrhea Musculoskeletal: Denies: pain Allergies: Coded Allergies: No Known Allergies (Unverified , 09/16/20) All Systems: reviewed and negative except above Objective Last 24 Hour Vital Signs Date Time Temp Pulse Resp B/P (MAP) Pulse Ox O2 Delivery O2 Flow Rate FiO2 11/09/20 10:35 102 146/60 11/09/20 09:33 146/60 11/09/20 08:56 Nasal Cannula 4.0 11/09/20 08:00 97.9 87 20 146/60 (88) 95 11/09/20 08:00 102 11/09/20 07:45 96 Nasal Cannula 4.0 36 11/09/20 04:00 98.1 82 18 144/62 (89) 96 11/09/20 04:00 97 11/09/20 00:00 108 11/09/20 00:00 97.9 82 17 115/60 (78) 98 11/08/20 21:00 Nasal Cannula 4.0 11/08/20 20:38 69 139/62 11/08/20 20:00 73 11/08/20 20:00 97.9 79 18 139/62 (87) 95 11/08/20 16:00 64 11/08/20 16:00 98.1 62 18 134/50 (78) 99 11/08/20 12:05 97.7 65 18 131/57 (81) 95 Intake and Output 11/08/20 11/09/20 19:00 07:00 Intake Total 300 ml Output Total 1200 ml 550 ml Balance -900 ml -550 ml Intake Oral 300 ml Output Urine Total 1200 ml 550 ml # Bowel Movements 1 Objective now on RA saturating well General Appearance: no acute distress HEENT: normocephalic Respiratory: chest wall non-tender, decreased breath sounds Cardiovascular: normal peripheral pulses Abdomen: normal bowel sounds Extremities: no cyanosis Current Medications Medications (Trade) Dose Ordered Sig/Lucille Route PRN Reason Start Time Stop Time Status Last Admin Dose Admin Acetaminophen (Tylenol) 650 mg Q4H PRN RECTAL Mild Pain (Pain Scale 1-3) 11/01/20 08:30 12/01/20 08:29 Acetaminophen (Tylenol) 650 mg Q6H PRN ORAL For Headache 11/01/20 08:30 12/01/20 08:29 Amiodarone HCl (Cordarone) 100 mg DAILY ORAL 11/08/20 10:30 02/06/21 10:29 11/09/20 10:35 Clonidine HCl (Catapres Tab) 0.1 mg Q4H PRN ORAL SBP above 150 11/01/20 08:30 01/30/21 08:29 Dexamethasone Sodium Phosphate (Decadron 10mg/ ml Inj) 6 mg DAILY IV 11/02/20 09:00 11/10/20 09:01 11/09/20 09:33 Enoxaparin Sodium (Lovenox) 30 mg DAILY SUBQ 11/09/20 09:00 02/07/21 08:59 11/09/20 09:34 Furosemide (Lasix) 40 mg DAILY IV 11/08/20 10:30 12/02/20 10:29 11/09/20 09:35 Losartan Potassium (Cozaar) 100 mg DAILY ORAL 11/08/20 10:30 12/08/20 10:29 11/09/20 09:33 Metoprolol Tartrate (Lopressor) 12.5 mg Q12HR ORAL 11/01/20 09:00 01/30/21 08:59 11/09/20 10:35 Pantoprazole (Protonix) 40 mg ACBREAKFAST ORAL 11/01/20 09:00 12/01/20 08:59 11/09/20 06:05 Quetiapine Fumarate (SEROqueL) 25 mg BEDTIME ORAL 11/09/20 21:00 12/24/20 20:59 Spironolactone (Aldactone) 25 mg DAILY ORAL 11/08/20 10:30 12/08/20 10:29 11/09/20 10:35 Assessment/Plan Assessment/Plan 1. COVID-19 pneumonia. - on Decadron (11/02-) - saturating well on RA - ABG improved 2. Pulmonary edema. - Will dc fluids - on diuretics 3. History of CHF. - trend BNP and diurese prn per Cardio 4. Multi-infarct dementia. 5. Hypertension. 6. DVT ppx - On lovenox 7. Urinary pathogen E. Coli - s/p ceftriaxone (11/01-11/08) 8. Hypokalemia - replaced Medically stable for discharge from pulmonary stand point The care for this patient was discussed with my supervising physician Time spent for this case was approximately 31 minutes Gagan Montilla Nov 09, 2020 11:54 Samuel Santamaria MD Nov 09, 2020 14:19
[2020-11-09 12:00] VITALS: BP 130/59
[2020-11-09 12:27] LABS: ANION GAP 2 mmol/L (5-15); BLOOD UREA NITROGEN 32 mg/dL (7-18); CALCIUM 9.3 MG/DL (8.5-10.1); CARBON DIOXIDE 38 MMOL/L (21-32); CHLORIDE 101 MMOL/L (98-107); CREATININE 0.7 MG/DL (0.55-1.30); POTASSIUM 3.7 MMOL/L (3.5-5.1); SODIUM 141 MMOL/L (136-145)
--- NOTE | 2020-11-09 13:26 | General Progress Note ---
Subjective ROS Limited/Unobtainable: No Constitutional: Reports: malaise, weakness HEENT: Reports: no symptoms Cardiovascular: Reports: no symptoms Respiratory: Reports: no symptoms Gastrointestinal/Abdominal: Reports: no symptoms Genitourinary: Reports: no symptoms Neurologic/Psychiatric: Reports: anxiety Endocrine: Reports: no symptoms Hematologic/Lymphatic: Reports: no symptoms Allergies: Coded Allergies: No Known Allergies (Unverified , 09/16/20) All Systems: reviewed and negative except above Subjective no change. improved. decreased o2 requirements. currently on nasal cannula 4L. less anxious and agitated. more cooperative. no fevers. wbc up. Objective Last 24 Hour Vital Signs Date Time Temp Pulse Resp B/P (MAP) Pulse Ox O2 Delivery O2 Flow Rate FiO2 11/09/20 12:00 77 11/09/20 12:00 97.7 87 18 130/59 (82) 95 11/09/20 10:35 102 146/60 11/09/20 09:33 146/60 11/09/20 08:56 Nasal Cannula 4.0 11/09/20 08:00 97.9 87 20 146/60 (88) 95 11/09/20 08:00 102 11/09/20 07:45 96 Nasal Cannula 4.0 36 11/09/20 04:00 98.1 82 18 144/62 (89) 96 11/09/20 04:00 97 11/09/20 00:00 108 11/09/20 00:00 97.9 82 17 115/60 (78) 98 11/08/20 21:00 Nasal Cannula 4.0 11/08/20 20:38 69 139/62 11/08/20 20:00 73 11/08/20 20:00 97.9 79 18 139/62 (87) 95 11/08/20 16:00 64 11/08/20 16:00 98.1 62 18 134/50 (78) 99 Intake and Output 11/08/20 11/09/20 19:00 07:00 Intake Total 300 ml Output Total 1200 ml 550 ml Balance -900 ml -550 ml Intake Oral 300 ml Output Urine Total 1200 ml 550 ml # Bowel Movements 1 Laboratory Tests 11/09/20 11:00: Sodium Level 141, Potassium Level 3.7, Chloride Level 101, Carbon Dioxide Level 38H, Anion Gap 2L, Blood Urea Nitrogen 32H, Creatinine 0.7, Estimat Glomerular Filtration Rate > 60, Glucose Level 120H, Calcium Level 9.3, Magnesium Level 2.2 Height (Feet): 5 Height (Inches): 6.00 Weight (Pounds): 145 Objective General Appearance: WD/WN, alert EENT: normal ENT inspection Neck: normal alignment Cardiovascular: normal peripheral pulses Respiratory/Chest: chest wall non-tender, lungs clear, normal breath sounds Abdomen: normal bowel sounds, non tender, soft, no organomegaly Edema: no edema noted Arm (L), no edema noted Arm (R), no edema noted Leg (L), no edema noted Leg (R) Neurologic: alert, responsive Skin: normal pigmentation Assessment/Plan Problem List: (1) COVID-19 virus detected ICD Codes: U07.1 - COVID-19 SNOMED: 0872845926366250 (2) NSTEMI (non-ST elevated myocardial infarction) ICD Codes: I21.4 - Non-ST elevation (NSTEMI) myocardial infarction SNOMED: 42982142 (3) Hypoxia ICD Codes: R09.02 - Hypoxemia SNOMED: 081350710 (4) CHF (congestive heart failure) ICD Codes: I50.9 - Heart failure, unspecified SNOMED: 58066686 Qualifiers: Qualified Codes: I50.9 - Heart failure, unspecified (5) Respiratory distress ICD Codes: R06.03 - Acute respiratory distress SNOMED: 625239909 (6) Pneumonia due to COVID-19 virus ICD Codes: U07.1 - COVID-19; J12.89 - Other viral pneumonia SNOMED: 210075976900091139 (7) Shortness of breath ICD Codes: R06.02 - Shortness of breath SNOMED: 075426647 Status: stable, progressing Assessment/Plan: cont current rx iv steroids s/p ivermectin resp care o2 dvt/stress ulcer prophylaxis swallow eval noted- start po monitor cxr and abg replace lytes as needed anxiolytics o2 as needed dvt/stress ulcer prophylaxis guarded Donnell Pedersen MD Nov 09, 2020 13:26
[2020-11-09 16:00] VITALS: BP 135/66
[2020-11-09] MEDS ORDERED: Tubing IV Secondary IV ONE (17:04)
[2020-11-09] MEDS ORDERED: NS 275ml ONE (17:04)
--- NOTE | 2020-11-13 12:39 | Discharge Summary ---
Discharge Summary Discharge Summary _ DATE OF ADMISSION: 11/01/2020 DATE OF DISCHARGE: 11/09/2019 DISCHARGED BY: REASON FOR ADMISSION: 85 years old male, resident of [facility] facility, with past medical history of paroxysmal atrial fibrillation, congestive heart failure, CVA , was sent for evaluation due to hypoxia ; pulse oximetry was 80% and he required 100% nonrebreather mask. Patient was tested positive for COVID-19 on October 01. Rapid COVID-19 in ED was positive. Patient was tachypneic , hypertensive and hypoxic, requiring nonrebreather mask. Laboratory work-up revealed no leukocytosis , hemoglobin 12.7 ,hematocrit 36.6 ,lymphopenia noted 16.6 . Lactic acid 4.2, repeated 3.4 AST 78, ALT 59. Troponin 0.06. ECG revealed no acute ischemci changes. LDH 293, ferritin 589. D-dimer 3.19. Urinalysis revealed pyuria and many bacteria. Chest x-ray demonstrated bilateral extensive and diffuse pulmonary edema versus infiltrates. Bilateral pleural effusion. In emergency department patient was placed on the BiPAP , received aspirin ,Lovenox ,steroid ,empiric antibiotic, nebulizing treatment and admitted for further management. 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 Santamaria ID specialist Dr. Garcia surgery Dr. Siegel [facility]RSE: Patient admitted to isolation room. Patient received steroids. Patient started on full anticoagulation while immobilized. Patient initially was on the BiPAP , settings titrated based on ABG . Pulmonary toilet provided . Patient started on empiric antibiotic Patient received dose of ivermectin. I Blood cultures were negative. Urine culture revealed E. coli. Patient completed treatment for UTI while in the hospital. Patient was followed-up with chest x-ray. As patient clinically improved , he was able to be weaned from BiPAP to Venturi mask and then to nasal cannula. Second troponin 0.063. Full anticoagulation provided and then changed to prophylaxis dose of low molecular dose Lovenox along with Aspirin. Volume status was closely monitored. ProBNP trended out. Guideline directed therapy for congestive heart failure continued. Potassium was replaced. Diuresis provided as needed. GI prophylaxis provided. Home medication continued. Aspiration precaution maintained. Diet provided as per speech therapist recommendation with aspiration precaution. LFT were closely monitored and trended down to normal . Surgeon followed. Abdominal exam was benign. Elevated LFTs were most likely due to COVID infection and resolved. Patient clinically stabilized and was ready for discharge to [facility] facility for continuation of care. FINAL DIAGNOSES: COVID pneumonia Acute hypoxemic respiratory failure requiring BiPAP - resolved Acute/chronic systolic CHF Lactic acidosis Acute coronary syndrome, possible NSTEMI Hypertension Multi-infarct dementia UTI with E. coli Hypokalemia Protein calorie malnutrition Abnormal LFT DISCHARGE MEDICATIONS: See Medication Reconciliation list. DISCHARGE INSTRUCTIONS: Patient was discharged to the [facility] facility. Follow up with medical doctor at the facility. I have been assigned to dictate discharge summary for this account. I was not involved in the patient's management. Dulce Gonzalez NP Nov 13, 2020 12:39
== END 2020-11-09 17:05 | DRG 177 ==
LOC: EDBD 04:29 → EMR 04:41 → ICU 04:56 → EDBEDREQ 05:55 → 2W 11-02 01:58 → 2E 11-04 13:41
PROC: 5A09457 Assistance with Respiratory Ventilation, 24-96 Consecutive Hours, Continuous Positive Airway Pressure (ICD-10-PCS; principal; 2020-11-01)
DX: U07.1 COVID-19 (principal); I21.4 Non-ST elevation (NSTEMI) myocardial infarction; J96.01 Acute respiratory failure with hypoxia; J12.82 Pneumonia due to coronavirus disease 2019; I50.23 Acute on chronic systolic (congestive) heart failure; E87.1 Hypo-osmolality and hyponatremia; N17.9 Acute kidney failure, unspecified; E44.0 Moderate protein-calorie malnutrition; N39.0 Urinary tract infection, site not specified; E87.2 Acidosis; E87.5 Hyperkalemia; Z68.20 Body mass index [BMI] 20.0-20.9, adult; I48.91 Unspecified atrial fibrillation; I11.0 Hypertensive heart disease with heart failure; F01.50 Vascular dementia, unspecified severity, without behavioral disturbance, psychotic disturbance, mood disturbance, and anxiety; B96.20 Unspecified Escherichia coli [E. coli] as the cause of diseases classified elsewhere; R94.5 Abnormal results of liver function studies; I25.10 Atherosclerotic heart disease of native coronary artery without angina pectoris; I25.2 Old myocardial infarction; M19.90 Unspecified osteoarthritis, unspecified site; Z86.73 Personal history of transient ischemic attack (TIA), and cerebral infarction without residual deficits; R32 Unspecified urinary incontinence; L30.8 Other specified dermatitis
CPT/HCPCS: 36415; 71045; 74018; 80048; 80053; 81003; 82550; 82728; 82803; 83605; 83615; 83690; 83735; 83880; 84484; 85007; 85025; 85379; 85610; 85730; 86140; 87040; 87081; 87086; 87181; 93005; 94640; 94660; 96361; 96365; 96375; 99285; J7620; J8499; U0002